=== PATIENT | female | born 1995 | race Caucasian/White ===

== ENCOUNTER 2022-08-27 11:31 | Outpatient (REF) | payer SELFPAY ==
[2022-08-27 11:32] VITALS: BP 111/85; PULSE 86; RESP 16; TEMP 36.2; O2SAT 100; BMI 20.9
--- NOTE | 2022-08-27 11:59 | EX.ED.UPPERE ---
HPI History of Present Illness HPI Narrative: Left index finger needlestick Chief Complaint: Occup Expose Informant: patient Onset/Context/Timing Onset: Today Context: Sudden Onset Timing: Continuous Associated Symptoms Associated Symptoms: Negative for Parasthesia, Weakness or Loss of Funtion Narrative Narrative: 27-year-old female no seen past medical history. Currently on no medications. Works on the labor and delivery floor. Did a blood stick on a and accidentally got stuck in her left index finger with the same dirty needle. Mom reportedly was hepatitis negative of the baby. Patient denies any other complaints. Prior similar symptoms: No Recent Illness/Hospitalization: No PFSH PFSH Medical History no medical history Home Medications NK 06/18/22 [History Last Taken Unknown] Allergy/AdvReac Type Severity Reaction Status Date / Time No Known Allergies Allergy Verified 08/27/22 11:34 Surgical History no surgical history Social History Smoking Status: Never smoker ROS ROS ED ROS Narrative Denies recent illness. Review of Systems ROS Unobtainable: Denies due to encephalopathy Constitutional Constitutional ED: Denies chills or fever(s) Eyes Eyes: Denies blurry vision ENT ENT ED: Denies ear pain Cardiovascular Cardiovascular: Denies chest pain Respiratory/Chest Respiratory/Chest: Denies cough or dyspnea Gastrointestinal Gastrointestinal: Denies abdominal pain Genitourinary Genitourinary ED: Denies dysuria Musculoskeletal Musculoskeletal: Denies back pain Integumentary Denies abscess Neurologic Neurologic: Denies headache(s) Psychiatric Psychiatric: Denies anxiety Endocrine Endocrinology: Denies cold intolerance Hematologic/Lymphatic Hematologic/Lymphatic: Denies easy bleeding Allergic/Immunologic Allergic/Immunologic ED: Denies mouth swelling EXAM Physical Exam Narrative Exam Narrative: 21-year-old female no acute distress. Vital signs stable afebrile. HEENT exam unremarkable. Neck nontender. Lungs clear to auscultation bilaterally. Heart regular rhythm rate about 85 no murmur. Abdomen soft nontender. Moving all 4 extremities. Left index finger palmar aspect mid phalanx there is a needlestick. No signs of infection. Full flexion extension. No significant swelling. No cellulitis. Const Vital Signs: 08/27/22 11:32 Temperature 97.2 F L Temperature Source Temporal Pulse Rate 86 Respiratory Rate 16 Blood Pressure 111/85 H Blood Pressure Mean 93 Pulse Ox 100 Oxygen Delivery Method Room Air Positive well nourished and well developed; Negative for obese, cachectic, contractures or unkempt General Appearance ED: well developed and NAD; Negative for unkempt, cachectic, contractures, cyanotic or diaphoretic Nutritional Appearance: Negative for cachectic or obese HEENT Reports moist mucous membranes normocephalic and atraumatic; Negative for trauma or tenderness Eyes PERRL and EOMs intact bilaterally General Eye ED: Negative for other Neck full ROM and supple General: Negative for tenderness Lymph Lymphatic: Negative for other Chest Wall inspection of chest normal and palpation of chest normal Resp normal respiratory effort and clear to auscultation bilaterally Effort and Inspection: Negative for pain with movement Auscultation: Negative for rales, rhonchi or wheezes Cardio regular rate, regular rhythm, S1 normal heart sound, S2 normal heart sound and no murmurs Rate: Negative for bradycardia or tachycardic GI non-tender and non-distended Inspection: Negative for abdominal distention Palpation: soft Extremity normal to inspection and full ROM Extremity Narrative: PulmNeedlestick left index finger or aspect mid phalanx. No swelling. No signs of infection. Neurovascular intact. Full flexion extension. General Extremety ED: Negative for edema General Extremity: Negative for edema Neuro oriented x3, CN's II-XII intact bilaterally, moves all extremities and no focal motor deficits Sensorium / Orientation: alert, oriented to person, oriented to place and oriented to time; Negative for orientation impaired, lethargic or stuporous Motor Exam: strength 5/5 throughout Psych mental status grossly normal Appearance: Negative for unkempt Attitude: No agitated Mood & Affect: Negative for depressed, anxious or tearful Skin General Skin Exam: Negative for petechiae Lesions: no lesions Rashes: no rashes Trauma: no lacerations or abrasions MDM MDM MDM Narrative Medical decision making narrative: [employer] nurse here works in the hospital. Had a needlestick from a blood draw from a . Left index finger is unremarkable. No signs of infection. She will follow-up with [facility] for needlestick protocol. Discharge Plan Triage Chief Complaint: Occup Expose ED Provider: Power Redmond Dx/Rx/DC Orders Clinical Impression: Needlestick injury of finger Instructions: ED NEEDLE STICK Health Care Worker Prescriptions: No Action NK Activity Restrictions/Additional Instructions: Follow-up with employee health for needlestick protocol. Watch you do not develop any signs of infection to your finger. Keep the wound clean. Watch for redness, swelling, streaks or fever. If develop needs to be evaluated. Disposition Disposition: Home, Self Care
== END 2022-08-27 12:09 | disposition home or self-care (01) ==
LOC: ED 11:31
PROVIDERS: Visit Provider Emergency Medicine
DX: L76.12 Accidental puncture and laceration of skin and subcutaneous tissue during other procedure (principal); Y92.230 Patient room in hospital as the place of occurrence of the external cause

== ENCOUNTER → 2022-09-11 | Outpatient (CLI) | payer OTHER, SELFPAY ==
[2022-09-21 17:51] LABS: HPV Reflexed? NOT INDICATED
== END | disposition home or self-care (01) ==
LOC: LABSPEC 16:11
PROVIDERS: Visit Provider Registered Nurse
DX: Z12.4 Encounter for screening for malignant neoplasm of cervix (principal)
CPT/HCPCS: 88175; G0145

== ENCOUNTER → 2023-07-14 | Outpatient (CLI) | payer OTHER, SELFPAY ==
[2023-07-14 10:52] LABS: Absolute Lymphocyte Count 1.56 X10^3/uL (0.83-4.51); Absolute Neutrophil Count 6.2 X10^3/uL (2.0-7.7); Basophil# 0.03 X10^3/uL; Basophil% 0.4 % (0-1); Eosinophil# 0.09 X10^3/uL; Eosinophils% 1.1 % (0-5); Hematocrit 36.9 % (37-47); Lymphocyte # 1.56 X10^3/ul (0.83-4.51); Lymphocyte % 18.3 % (19-41); Mean Corp Hgb Conc 35.2 g/dL (32-36); Mean Corpuscular Hgb 30.8 pg (27.0-32.0); Mean Corpuscular Volume 87.4 fL (81-99); Mean Platelet Vol. 10.1 fl (6.2-12.0); Monocyte# 0.57 X10^3/uL; Monocyte% 6.7 % (0-10); NRBC Flagged by Analyzer 0 % (0-5); Neutrophil # 6.24 X10^3/uL (2.7-7.7); Neutrophil % 73.1 % (47-70); Platelet Count 202 K/mm3 (150-450); RBC Distribution Width CV 12.5 % (11.6-14.6); RBC Distribution Width SD 39.9 fl (35.1-43.9); Red Blood Count 4.22 M/mm3 (4.2-5.4); White Blood Count 8.5 K/mm3 (4.4-11.0)
[2023-07-14 11:49] LABS: NATERA MAILED SPECIMEN
[2023-07-14 13:23] LABS: HIV - WCH Non-Reactive (Nonreactive); Hepatitis B Surface Antigen Non-Reactive (Nonreactive); Hepatitis C Antibody Non-Reactive (Nonreactive); Rubella IgG Reactive (Nonreactive); Syphilis Antibodies Non-reactive
[2023-07-16 12:09] LABS: Chlamydia By Nucleic Acid AMP Negative (Negative); Gonococcus By Nucleic Acid AMP Negative (Negative)
[2023-07-20 15:23] LABS: HPV Reflexed? NOT INDICATED
== END | disposition home or self-care (01) ==
PROVIDERS: Referring Provider Obstetrics & Gynecology; Visit Provider Obstetrics & Gynecology
DX: Z34.90 Encounter for supervision of normal pregnancy, unspecified, unspecified trimester (principal); Z31.430 Encounter of female for testing for genetic disease carrier status for procreative management
CPT/HCPCS: 36415; 85025; 86703; 86762; 86780; 86803; 86850; 86900; 86901; 87086; 87088; 87340; 87491; 87591; 88175; G0145

== ENCOUNTER → 2023-10-04 | Outpatient (CLI) | payer OTHER, SELFPAY ==
--- NOTE | 2023-10-04 08:05 | US_ITS ---
STUDY: SECOND AND THIRD TRIMESTER OBSTETRICAL ULTRASOUND REASON FOR EXAM: Female, 28 years old anatomy scan LMP: May 15, 2023. TECHNIQUE: Transabdominal and Transvaginal TECHNICAL QUALITY: Adequate. PRIOR ULTRASOUND: None. FINDINGS: There is a single intrauterine fetus. The fetus is in a cephalic presentation. There is demonstrated cardiac activity with a heart rate of 141 bpm. There is a normal amniotic fluid volume. The largest amniotic fluid pocket measures 4.4 cm. The amniotic fluid index (REMI) is within normal limits. The placenta is posterior in location and is not low lying. There are Grade 0 placental changes. The cervix measures 4.1 cm in length. The adnexal regions are not visualized. BIOMETRY: BPD: 8.63 cm: 20 weeks, 0 days HC: 17.18 cm: 19 weeks, 5 days AC: 15.01 cm: 20 weeks, 2 days FL: 3.08 cm: weeks, 4 days CI: 76.5% FL/BPD: 66.5% FL/HC: FL/AC: 20.5% HC/AC: 1.14 age by current US: 19 weeks, 5 days. MELISSA by current US: February 23, 2024. Estimated weight: 324 grams, +/- 49 grams, 28 %. Age by LMP: 20 weeks, 2 days. MELISSA by LMP: February 19, 2024. ANATOMY: Cranium: Normal lateral ventricles. Small bilateral choroid plexus cysts Normal cerebellum. Normal cisterna magna. Normal face, nose and lips. Chest: Normal 4-chamber heart. Abdomen/Pelvis: Normal diaphragm. Normal stomach. Normal abdominal wall. Normal cord insertion. Normal 3 vessel cord. Normal kidneys. Normal bladder. Spine: Normal cervical spine. Normal thoracic spine. Normal lumbar spine. Normal sacrum. Extremities: Normal bilateral upper extremities. Normal bilateral lower extremities. IMPRESSION: Live intrauterine gestation with a mean gestational age of 19 weeks and 5 days. Small bilateral choroid plexus cysts. Electronically Signed: Ty Mccormick MD at 9:07 EST , STUDY: FIRST TRIMESTER OBSTETRICAL ULTRASOUND REASON FOR EXAM: Female, 28 years old anatomy scan LMP: May 15, 2023 TECHNIQUE: Transvaginal TECHNICAL QUALITY: Adequate. PRIOR ULTRASOUND: None. FINDINGS: Cervical length measures 4.1 cm. US/OB Anatomy w/ Transvaginal IMPRESSION: Cervical length measures 4.1 cm. Electronically Signed: Ty Mccormick MD at 9:07 EST ,
== END | disposition home or self-care (01) ==
LOC: OPUS 08:04
PROVIDERS: Referring Provider Registered Nurse; Visit Provider Registered Nurse
DX: O09.90 Supervision of high risk pregnancy, unspecified, unspecified trimester (principal); Z3A.00 Weeks of gestation of pregnancy not specified
CPT/HCPCS: 76805; 76817

== ENCOUNTER → 2023-10-05 | Outpatient (CLI) | payer OTHER, SELFPAY ==
[2023-10-05 11:20] LABS: NATERA MAILED SPECIMEN
== END | disposition home or self-care (01) ==
PROVIDERS: Referring Provider Advanced Practice Midwife; Visit Provider Advanced Practice Midwife
DX: Z34.02 Encounter for supervision of normal first pregnancy, second trimester (principal)

== ENCOUNTER → 2023-11-29 | Outpatient (CLI) | payer OTHER, SELFPAY ==
[2023-11-29 11:05] LABS: Absolute Lymphocyte Count 1.34 X10^3/uL (0.83-4.51); Absolute Neutrophil Count 6.1 X10^3/uL (2.0-7.7); Basophil# 0.03 X10^3/uL; Basophil% 0.4 % (0-1); Eosinophil# 0.26 X10^3/uL; Eosinophils% 3.2 % (0-5); Hematocrit 32.7 % (37-47); Hemoglobin 10.9 g/dL (12.0-15.0); Lymphocyte # 1.34 X10^3/ul (0.83-4.51); Lymphocyte % 16.4 % (19-41); Mean Corp Hgb Conc 33.3 g/dL (32-36); Mean Corpuscular Hgb 29.9 pg (27.0-32.0); Mean Corpuscular Volume 89.6 fL (81-99); Monocyte# 0.41 X10^3/uL; NRBC Flagged by Analyzer 0 % (0-5); Neutrophil # 6.13 X10^3/uL (2.7-7.7); Neutrophil % 74.8 % (47-70); Platelet Count 199 K/mm3 (150-450); RBC Distribution Width CV 12.1 % (11.6-14.6); RBC Distribution Width SD 39.2 fl (35.1-43.9); Red Blood Count 3.65 M/mm3 (4.2-5.4); White Blood Count 8.2 K/mm3 (4.4-11.0)
[2023-11-29 11:17] LABS: Glucose Challenge Gest 1H 50g 176 mg/dL (70-140)
[2023-11-29 11:48] LABS: HIV - WCH Non-Reactive (Nonreactive); Syphilis Antibodies Non-reactive
--- OUTSIDE RECORDS SUMMARY | 2023-11-29 12:19 | XMS RPT_ITS | CCD ---
Author Name Unknown Address [address] [place] [address] Organization [facility] Results Test Name Value Interpretation Reference Range Facil ity Summary Purpose Family History No Family History Records Found Advance Directives No Advanced Directives Records Found Additional Source Comments INFORMATION SOURCE (unrecogn ized section and content) FOR RECORDS PERTAINING TO PATIENTS WHO ARE OR HAVE BEEN ENROLLED IN A CHEMICAL DEPENDENCY/SUBSTANCEABUSE PROGRAM, SOME INFORMATION MAY BE OMITTED. This clinical summary was aggregated from multiple sources. Caution should be exercised in using it in the provision of clinical care. This summary normalizes information from multiple sources, and as a consequence, information in this document may materially change the coding, format and clinical context of patient data. In addition, data may be omitted in some cases. CLINICAL DECISIONS SHOULD BE BASED ON THE PRIMARY CLINICAL RECORDS. [employer] [facility]. provides no warranty or guarantee of the accuracy or completeness of information in this document.
== END | disposition home or self-care (01) ==
LOC: PAVLAB 10:41
PROVIDERS: Registered Nurse; Visit Provider Obstetrics & Gynecology
DX: O09.92 Supervision of high risk pregnancy, unspecified, second trimester (principal); Z3A.24 24 weeks gestation of pregnancy; Z13.1 Encounter for screening for diabetes mellitus
CPT/HCPCS: 36415; 82950; 85025; 86703; 86780

== ENCOUNTER → 2023-12-07 | Outpatient (CLI) | payer OTHER, SELFPAY ==
[2023-12-07 11:20] LABS: Glucose GTT-Gestation. Fasting 74 mg/dL (<105)
[2023-12-07 12:56] LABS: Glucose GTT-Gestational 1 Hr 199 mg/dL (<190)
[2023-12-07 13:00] LABS: Glucose GTT-Gestational 2 Hr 182 mg/dL (<165)
[2023-12-07 13:46] LABS: Glucose GTT-Gestational 3 Hr 122 L (<145)
== END | disposition home or self-care (01) ==
LOC: LAB 09:54
PROVIDERS: Registered Nurse; Referring Provider Obstetrics & Gynecology; Visit Provider Obstetrics & Gynecology
DX: O99.810 Abnormal glucose complicating pregnancy (principal); Z3A.00 Weeks of gestation of pregnancy not specified
CPT/HCPCS: 82951; 82952

== ENCOUNTER 2023-12-28 09:00 | Outpatient (RCR) | payer OTHER, SELFPAY | END 2024-01-06 23:59 | LOC: DC 09:00 | PROVIDERS: Referring Provider Registered Nurse; Visit Provider Registered Nurse | DX: O24.419 Gestational diabetes mellitus in pregnancy, unspecified control (principal) | CPT/HCPCS: 97802; 97803 ==

== ENCOUNTER → 2024-01-03 | Outpatient (CLI) | payer OTHER, SELFPAY ==
[2024-01-03 10:45] LABS: Absolute Lymphocyte Count 1.45 X10^3/uL (0.83-4.51); Absolute Neutrophil Count 4.2 X10^3/uL (2.0-7.7); Basophil# 0.02 X10^3/uL; Basophil% 0.3 % (0-1); Eosinophil# 0.12 X10^3/uL; Eosinophils% 1.9 % (0-5); Hematocrit 35.5 % (37-47); Hemoglobin 11.8 g/dL (12.0-15.0); Lymphocyte # 1.45 X10^3/ul (0.83-4.51); Lymphocyte % 23.5 % (19-41); Mean Corp Hgb Conc 33.2 g/dL (32-36); Mean Corpuscular Hgb 29.8 pg (27.0-32.0); Mean Corpuscular Volume 89.6 fL (81-99); Monocyte# 0.33 X10^3/uL; Monocyte% 5.3 % (0-10); NRBC Flagged by Analyzer 0 % (0-5); Neutrophil # 4.22 X10^3/uL (2.7-7.7); Neutrophil % 68.4 % (47-70); Platelet Count 165 K/mm3 (150-450); RBC Distribution Width CV 13.6 % (11.6-14.6); RBC Distribution Width SD 44.5 fl (35.1-43.9); Red Blood Count 3.96 M/mm3 (4.2-5.4); White Blood Count 6.2 K/mm3 (4.4-11.0)
--- OUTSIDE RECORDS SUMMARY | 2024-01-03 11:54 | XMS RPT_ITS | CCD ---
Author Name Unknown Address [address] [place] [address] Organization [facility] Results Test Name Value Interpretation [...] BE BASED ON THE PRIMARY CLINICAL RECORDS. [employer] [facility]. provides no warranty or guarantee of the accuracy or completeness of information in this document.
== END | disposition home or self-care (01) ==
LOC: PAVLAB 10:34
PROVIDERS: Referring Provider Nurse Practitioner Women's Health; Visit Provider Nurse Practitioner Women's Health
DX: O99.013 Anemia complicating pregnancy, third trimester (principal); Z3A.00 Weeks of gestation of pregnancy not specified
CPT/HCPCS: 36415; 85025

== ENCOUNTER → 2024-01-27 | Outpatient (CLI) | payer OTHER, SELFPAY ==
--- NOTE | 2024-01-27 16:48 | US_ITS ---
STUDY: SECOND AND THIRD TRIMESTER OBSTETRICAL ULTRASOUND - LIMITED REASON FOR EXAM: Female, 28 years old well being -- 36 weeks LMP: 05/15/2023 PRIOR ULTRASOUND: No relevant prior comparison study available TECHNIQUE: Transabdominal TECHNICAL QUALITY: Adequate. FINDINGS: There is a single intrauterine fetus. The fetus is in a cephalic presentation. There is demonstrated cardiac activity with a heart rate of 135 bpm. There is a normal amniotic fluid volume. The largest amniotic fluid pocket measures 6.2 cm. The amniotic fluid index (REMI) is 18.2 cm. The placenta is posterior in location and is not low lying. There are Grade 1 placental changes. The cervix is not visualized. BIOMETRY: BPD: 8.8 cm: 35 weeks, 5 days HC: 31.9 cm: 35 weeks, 6 days AC: 31.2 cm: 35 weeks, 1 days FL: 6.7 cm: 34 weeks, 3 days Age by LMP: 36 weeks, 5 days. MELISSA by LMP: 02/19/2024. age by current US: 35 weeks, 2 days. MELISSA by current US: 02/29/2024. Estimated weight: 2610 grams, +/- 391 grams, 18.2 percentile. US/OB Limited With Biometrics IMPRESSION: Single live intrauterine fetus in cephalic presentation with an estimated gestational age of 32 weeks and 2 days. The MELISSA is 02/29/2024. Electronically Signed: Mario Cui MD at 11:00 EDT ,
== END | disposition home or self-care (01) ==
PROVIDERS: Referring Provider Nurse Practitioner Women's Health; Visit Provider Nurse Practitioner Women's Health
DX: Z34.90 Encounter for supervision of normal pregnancy, unspecified, unspecified trimester (principal)
CPT/HCPCS: 76816; 87081

== ENCOUNTER 2024-02-02 09:13 | Outpatient (CLI) | payer OTHER, SELFPAY ==
[2024-02-02 09:30] VITALS: BP 123/83; PULSE 97; RESP 16; TEMP 36.3; O2SAT 97
--- NOTE | 2024-02-02 09:35 | US_ITS ---
STUDY: SECOND AND THIRD TRIMESTER OBSTETRICAL ULTRASOUND - LIMITED REASON FOR EXAM: Female, 28 years old Fluid levels -- REMI only LMP: May 15, 2023. PRIOR ULTRASOUND: Comparison is made with prior study dated January 27, 2024. TECHNIQUE: Transabdominal TECHNICAL QUALITY: Adequate. FINDINGS: There is a single intrauterine fetus. The fetus is in a breech presentation. There is demonstrated cardiac activity with a heart rate of 144 bpm. There is a normal amniotic fluid volume. The largest amniotic fluid pocket measures 6.1 cm. The amniotic fluid index (REMI) is 19.7 cm. The placenta is posterior in location and is not low lying. There are Grade 1 placental changes. The cervix measures 3.5 cm in length. BIOMETRY: Age by LMP: 37 weeks, 4 days. MELISSA by LMP: February 19, 2024. US/OB Limited (No Biometrics) IMPRESSION: Normal amniotic fluid index. Electronically Signed: Ty Mccormick MD at 12:34 EDT ,
[2024-02-02 09:42] VITALS: BMI 26.0
--- NOTE | 2024-02-02 11:53 | OB.TRI.PN ---
Progress Notes Date of Service: 02/02/24 Progress Note: Patient presents for triage evaluation secondary to decreased fundal height in office FHT: 130 Moderate variability reactive no decelerations category I tracing [place]: none Contractions Assessment and plan: US shows breech presentation. REMI 19, Reactive NST, reassuring maternal and status patient discharged to home to follow-up tomorrow for Version with SM. See problem list details for additional plan information. Charges/Coding Multi Select Codes Urinary/Genital Urinary/Genital CPT Codes: 94983-21 non-stress test Interp Assessment & Plan (1) Breech position of fetus: COMMENT: on US at 37.4 weeks version 02/03/24 with SM. REMI 19 on 02/01 (2) Uterine size date discrepancy : COMMENT: S<D (3) Gestational diabetes mellitus (GDM) affecting , antepartum: COMMENT: Diet controlled-36 week growth US 18% (4) Anemia affecting in third trimester: COMMENT: iron recommended repeat cbc in 4 weeks. 01/03:resolved (5) Supervision of high-risk : QUALIFIERS: Trimester: second trimester Qualified Code(s): O09.92 - Supervision of high risk , unspecified, second trimester COMMENT: PRR , MELISSA 02/25/24 surprise Siva (6) : QUALIFIERS: Weeks of gestation: 37 weeks Qualified Code(s): Z3A.37 - 37 weeks gestation of COMMENT: GBS neg, NIPT low risk, carrier testing neg. . afp declined. normal anatomy
== END 2024-02-02 11:50 | disposition home or self-care (01) ==
LOC: WPOUT 09:17 → WP 09:17
PROVIDERS: Referring Provider Advanced Practice Midwife; Visit Provider Advanced Practice Midwife
DX: O32.1XX0 Maternal care for breech presentation, not applicable or unspecified (principal); Z3A.37 37 weeks gestation of pregnancy; O26.843 Uterine size-date discrepancy, third trimester; O24.419 Gestational diabetes mellitus in pregnancy, unspecified control; O99.013 Anemia complicating pregnancy, third trimester
CPT/HCPCS: 59025; 59050; 76815; 99221; G0378

== ENCOUNTER 2024-02-03 06:30 | Outpatient (CLI) | payer OTHER, SELFPAY ==
[2024-02-03 06:37] VITALS: BMI 25.6
[2024-02-03 06:46] VITALS: BP 119/77; PULSE 86; RESP 16; TEMP 36.7; O2SAT 100
[2024-02-03] MEDS: Lactated Ringers 1,000 ML 125 ML IV (07:00)
--- NOTE | 2024-02-03 07:21 | HP.PCM.OB_ITS ---
HPI - General HPI Narrative JANET FLORES, is a 28 F who presents with breech presentation for external cephalic version. she had an ultrasound done that showed non cephalic presentation, she was counseled regarding options, and requested to proceed with ECV. Maternal Data Information MELISSA Calculator Estimated Delivery Date Method Current WG Current Estimate 02/19/24 Ultrasound #1 37w 5d Other Estimates 02/25/24 LMP (Certain) 36w 6d [facility] Medical History Asthma Home Medications multivitamin no.47-iron fum 27 mg-folate no.1 1 mg-dha 300 mg capsule (PNV-DHA) cap PO 07/06/23 [History Last Taken Unknown] omega 1-zot-pqf-fish oil 60 mg-90 mg-500 mg capsule (Fish Oil) 1 cap PO DAILY 07/06/23 [History Last Taken Unknown] ondansetron 4 mg disintegrating tablet 4 mg PO Q6H PRN nausea and vomiting #30 tabs 07/14/23 [Rx Last Taken Unknown] promethazine 25 mg tablet 25 mg PO ONCE #30 tabs 09/10/23 [Rx Last Taken Unknown] blood sugar diagnostic (Blood Glucose Test strips) #120 ea 12/09/23 [Rx Last Taken Unknown] blood-glucose meter #1 ea 12/09/23 [Rx Last Taken Unknown] lancets #200 ea 12/09/23 [Rx Last Taken Unknown] aspirin 81 mg tablet,delayed release 81 mg PO DAILY 01/12/24 [History Last Taken Unknown] Allergy/AdvReac Type Severity Reaction Status Date / Time No Known Allergies Allergy Verified 02/02/24 09:37 Family History Grandmother Cancer Breast cancer Rectal cancer, Onset Age: 79 maternal Breast cancer Grandfather Cancer, Onset Age: 50 Maternal- testicular Uncle Cancer, Onset Age: 16 Brain- Maternal Social History adopted: No household members: spouse current occupational status: employed current occupation: RN- [employer] pets and animals: Yes pets and animals: dog(s) history of recent travel: Yes ([place]) out of state: Yes out of country: No sexually active: Yes Smoking Status: Never smoker alcohol intake: current alcohol intake frequency: holidays/special occasions only details: NOT WHILE substance use type: does not use diet: lactose free well-balanced diet: daily or most days caffeine: No eating out: 4 or more times/week during the past year weight has: increased > 10 lbs what type of physical activity do you participate in: none miguel/mu-ism: Mandaeism seatbelt use: always do you feel safe at home: Yes additional social history: - Siva History 1 Elective abortions Hx Para 0 Spontaneous abortions Hx # Term Pregnancies Ectopic pregnancies Hx # Pregnancies Multiple births # of living children Visit Details Expected Delivery Route/Plan Labor Preferences- CB/BF classes: scheduled labor support person: Siva labor intervention preferences: [] pain management options preferred: epidural cut cord/dad catch: yes : yes PP control planned: discussed discussed possible routes of delivery and associated risks: [] special requests: [] Plans Covid status: [] Flu vaccine: DONE Tdap vaccine: DONE Rhogam: NA LARC form signed: yes Problem list reviewed and updated with the most current plan of care details and appropriate orders placed. Relevant counseling for the gestational age provided. Continue routine care and follow up unless otherwise noted in visit notes/problem list details OB Flowsheet Initial Weight: 145 lb Date -?-?-?-?-?-?--?-?-?-?-?-?- EGA Weight BP Urine Prot -?-?-?-?-?-?-?-?-?-?-?-?- Glucose FHR FuHt Pres Dilation -?-?-?-?-?-?-?-?-?-?-?-?- Effaced St Visit Note 07/14/23 -?-?-?-?-?-?-?-?-?-?-?-?- 8w 4d 145 lb 4 oz (+4 oz) 116/72 -?-?-?-?-?-?-?-?-?-?-?-?- 165 -?-?-?-?-?-?-?-?-?-?-?-?- JV- CRL off by o usha 5 days. New melissa given. rivka sent to pharmacy. declines NIPT and desires carrier screen. 08/11/23 -?-?-?-?-?-?-?-?-?-?-?-?- 12w 4d 142 lb (-3 lb) 106/69 -?-?-?-?-?-?-?-?-?-?-?-?- 157 -?--?-?-?-?-?-?-?-?-?-?-?- LC- no vb/crampi ng. [facility] anatomy ordered. LC- no vb/cramping. [facility] marvin amy ordered. declines afp . 09/06/23 -?-?-?-?-?-?-?-?-?-?-?-?- 16w 2d 145 lb (+0 oz) 112/74 Negative -?-?-?-?-?-?-?-?-?-?-?-?- Negative 147 -?-?-?-?-?-?-?-?-?-?-?-?- MH-No VB. Nausea improving. Denies concerns 10/05/23 -?-?-?-?-?-?-?-?-?-?-?-?- 20w 3d 146 lb (+16 oz) 111/76 -?-?-?-?-?-?-?-?-?-?-?-?- 140 20 -?-?-?-?-?-?-?-?-?-?-?-?- kw- no vb/crampi ng. noticing fm. on asa 81mg for covid during . NIPT today for possible choroid plexus cysts found on US. Report not read yet but US tech indicated measurements were taken when pt asked. pt reassured and discussed in depth. 11/05/23 -?-?-?-?-?-?-?-?-?-?-?-?- 24w 6d 153 lb 8 oz (+8 lb 8 oz) 121/80 Negative -?-?-?-?-?-?-?-?-?-?-?-?- Negative 143 24 -?-?-?-?-?-?-?-?-?-?-?-?- LC- no vb/ctc/lo f. good fm. 28 week labs ordered. desires to do pelvic floor pt prior to delivery for preparation 11/29/23 -?-?-?-?-?-?-?-?-?-?-?-?- 28w 2d 157 lb (+12 lb) 117/78 -?-?-?-?-?-?-?-?-?-?-?-?- 140 29 -?-?-?-?-?-?-?-?-?-?-?-?- SM- no vb lof go od fm no regular ctx SM- no vb lof good fm no reg ular ctx DISCUSSED 1 hr results 12/16/23 -?-?-?-?-?-?-?-?-?-?-?-?- 30w 5d 158 lb 6 oz (+13 lb 6 oz) 120/80 Negative -?-?-?-?-?-?-?-?-?-?-?-?- Negative 140 29 -?-?-?-?-?--?-?-?-?-?-?-?- KW- no vb/lof/ct x. good fm. Discussed 3 hour results. Blood sugars under parameters. doing well. will plan 36 week US. 01/03/24 -?-?-?-?-?-?-?-?-?-?-?-?- 33w 2d 155 lb 6 oz (+10 lb 6 oz) 108/68 Negative -?-?-?-?-?-?-?-?-?-?-?-?- Negative 143 32 -?-?-?-?-?-?-?-?-?-?-?-?- MH-NO VB, LOF. G ood FM. Glucose readings WNL. Had GI flu last week, reassured concerning weight loss 01/12/24 -?-?-?-?-?-?-?-?-?-?-?-?- 34w 4d 156 lb 4 oz (+11 lb 4 oz) 110/70 Trace -?-?-?-?-?-?-?-?-?-?-?-?- Negative 145 32 -?-?-?-?-?-?-?-?-?-?-?-?- JV- no lof, vagi nal bleeding, or dec fm. plan growth scan in 2 weeks. JV- no lof, vaginal bleeding , or dec fm. plan growth scan in 2 weeks. all glucose levels are normal. 01/27/24 -?-?-?-?-?-?-?-?-?-?-?-?- 36w 5d 163 lb 4 oz (+18 lb 4 oz) 124/75 Negative -?-?-?-?-?-?-?-?-?-?-?-?- Negative 135 37 Cephalic -?-?-?-?-?-?-?-?-?-?-?-?- KW- no vb/lof/ct x. good fm. no VE today. GBS today. 02/02/24 -?-?-?-?-?-?-?-?-?-?-?-?- 37w 4d 163 lb 8 oz (+18 lb 8 oz) 110/72 Negative -?-?-?-?-?-?-?-?-?-?-?--?- Negative 145 33 Cephalic 1 -?-?-?-?-?-?-?-?-?-?-?-?- 50 -3 KW- no vb/ lof/reg ctx. good fm. GBS neg. Growth US ordered for S<D NST FHR Rate Baby A Baseline: 130 Variability:: Moderate Accelerations:: 15 x 15 Decelerations:: None NST Reactive:: Yes FHR Category:: Category I Uterine Activity:: irregular ROS Constitutional Constitutional: Reports systems reviewed and no addt'l complaints, except as documented Eyes Eyes: Denies change in vision ENT HEENT: Reports systems reviewed and no addt'l complaints, except as documented; Denies headache(s) Cardiovascular Cardiovascular: Reports systems reviewed and no addt'l complaints, except as documented; Denies chest pain or dyspnea Respiratory/Chest Respiratory/Chest: Reports systems reviewed and no addt'l complaints, except as documented Gastrointestinal Gastrointestinal: Reports systems reviewed and no addt'l complaints, except as documented; Denies abdominal pain Genitourinary Genitourinary: Reports systems reviewed and no addt'l complaints, except as documented, contractions Details: present (irregular) and movement Details: present; Denies dysuria or genital lesions Musculoskeletal Musculoskeletal: Reports systems reviewed and no addt'l complaints, except as documented Neurologic Neurologic: Reports systems reviewed and no addt'l complaints, except as documented Endocrine Endocrinology: Reports systems reviewed and no addt'l complaints, except as documented Vital Signs Vital Signs Vital Signs: 02/03/24 06:46 02/03/24 06:46 02/03/24 06:46 Temperature Temperature Source Temporal Pulse Rate 86 Respiratory Rate Blood Pressure 119/77 BP Systolic 119 BP Diastolic 77 Pulse Ox 02/03/24 06:46 02/03/24 06:46 02/03/24 06:46 Temperature 98.0 F Temperature Source Pulse Rate Respiratory Rate 16 Blood Pressure BP Systolic BP Diastolic Pulse Ox 100 Weight Weight: 161 lb 6 oz Body Mass Index (BMI) 25.6 Physical Exam Const alert, oriented x3, no apparent distress and healthy appearing HEENT normocephalic and moist oral mucous membranes Head and Scalp: atraumatic Neck full ROM, no lymphadenopathy, supple and thyroid normal General: trachea midline Lymph Lymphatic: no lymphadenopathy noted Chest inspection of chest normal Resp normal respiratory effort Cardio regular rate GI normal to inspection, nondistended, normoactive bowel sounds, soft to palpation and non-tender Inspection: gravid external exam normal Manual OB Exam: estimated gestational size appropriate, presentation cephalic, dilated, effaced and station Extremity normal to inspection General Extremity: Negative for edema Skin no rashes or lesions noted Neuro no focal motor deficits and deep tendon reflexes 2+ bilaterally Motor Exam: strength 5/5 throughout and clonus absent Psych mental status grossly normal Labs Labs Labs: Blood Type A POSITIVE Antibody Screen NEGATIVE Hct 35.5 % (37-47) L Hgb 11.8 g/dL (12.0-15.0) L Obstetrics Ultrasound Syphilis Total Ab Non-reactive Rubella IgG Antibody Reactive (Nonreactive) Hep Bs Antigen Non-Reactive (Nonreactive) Hepatitis C Antibody Non-Reactive (Nonreactive) Chlamydia DNA (DORIS) Negative (Negative) N.gonorrhoeae DNA (DORIS) Negative (Negative) HIV 1&2 Antibody Non-Reactive (Nonreactive) Glucose 1 Hr 50 gm 176 mg/dL (70-140) H Gest Glucose Tolerance MG/DL Assessment & Plan (1) Breech position of fetus: COMMENT: on US at 37.4 weeks version 02/03/24 with SM. REMI 19 on 02/01 (2) Uterine size date discrepancy : COMMENT: S<D (3) Gestational diabetes mellitus (GDM) affecting , antepartum: COMMENT: Diet controlled-36 week growth US 18% (4) Anemia affecting in third trimester: COMMENT: iron recommended repeat cbc in 4 weeks. 01/03:resolved (5) Supervision of high-risk : QUALIFIERS: Trimester: second trimester Qualified Code(s): O09.92 - Supervision of high risk , unspecified, second trimester COMMENT: PRR , MELISSA 02/25/24 surprise Siva (6) : QUALIFIERS: Weeks of gestation: 37 weeks Qualified Code(s): Z3A.37 - 37 weeks gestation of COMMENT: GBS neg, NIPT low risk, carrier testing neg. . afp declined. normal anatomy PLAN: Plan counseled regarding options, proceed with ECV.
[2024-02-03 07:37] VITALS: BP 102/56; PULSE 88
[2024-02-03 07:48] VITALS: PULSE 105; RESP 16; TEMP 36.9; O2SAT 98
[2024-02-03 07:53] VITALS: PULSE 87; O2SAT 98
[2024-02-03 07:58] VITALS: PULSE 91; O2SAT 98
[2024-02-03 09:01] VITALS: BP 96/54; PULSE 80
--- NOTE | 2024-02-03 13:10 | PCM.OP.BLANK ---
Operative Report Preprocedure diagnosis: Breech presentation Post procedure diagnosis: Vertex presentation Procedure: External cephalic version Surgeon: Lori Yu EBL: None Complications: None Anesthesia: None Special medications: none Seizure details: The fetus was found to be in breech presentation informed by ultrasound. Patient had an IV in place, normal amniotic fluid, no contraindications to a vaginal delivery, and reactive nonstress test prior to the procedure. Patient was placed in the dorsal supine position. Ultrasound gel was applied to the patient's abdomen and using constant upward pressure to elevate the buttocks out of the pelvic inlet constant pressure was applied to the buttocks and to the area behind the back of the neck and head to encourage a forward roll of the fetus. Constant pressure was applied and slowly the infant was converted to a vertex presentation. Bedside ultrasound was used to confirm vertex presentation and reassuring heart rate. Patient was replaced on the NST and monitored to assure reassuring status. No complications. Procedures Urinary/Genital [id number]: [id number] ECV
== END 2024-02-03 09:20 | disposition home or self-care (01) ==
LOC: WPOUT 06:33 → WP 06:34
PROVIDERS: Referring Provider Obstetrics & Gynecology; Visit Provider Obstetrics & Gynecology
DX: O32.1XX0 Maternal care for breech presentation, not applicable or unspecified (principal); Z3A.37 37 weeks gestation of pregnancy; O26.843 Uterine size-date discrepancy, third trimester; O24.419 Gestational diabetes mellitus in pregnancy, unspecified control; O99.013 Anemia complicating pregnancy, third trimester
CPT/HCPCS: 96360; 96361; 59025; 59050; 99221; J7120; G0378

== ENCOUNTER 2024-02-17 16:50 | Inpatient (IN) | payer OTHER, SELFPAY ==
[2024-02-17] VITALS (9 sets, daily range): BP systolic 118–132; BP diastolic 72–89; PULSE 67–96; RESP 16; TEMP 36.7; O2SAT 95–98; BMI 26.0
--- NOTE | 2024-02-17 17:49 | HP.PCM.OB_ITS ---
HPI - General General Date of Admission: 02/17/24 HPI Narrative JANET FLORES, is a 28 F who presents for IOL secondary to polyhydramnios and diabetes. her blood sugars have been well controlled. Maternal Data Information MELISSA Calculator Estimated Delivery Date Method Current WG Current Estimate 02/19/24 Ultrasound #1 39w 5d Other Estimates 02/25/24 LMP (Certain) 38w 6d PFSH [facility] Medical History (Updated 02/17/24 @ 18:[address] Lori Yu MD) Anemia affecting Asthma Gestational diabetes Polyhydramnios Successful external cephalic version Home Medications multivitamin no.47-iron fum 27 mg-folate no.1 1 mg-dha 300 mg capsule (PNV-DHA) cap PO 07/06/23 [History Last Taken Unknown] omega 7-nul-ttu-fish oil 60 mg-90 mg-500 mg capsule (Fish Oil) 1 cap PO DAILY 07/06/23 [History Last Taken Unknown] ondansetron 4 mg disintegrating tablet 4 mg PO Q6H PRN nausea and vomiting #30 tabs 07/14/23 [Rx Last Taken Unknown] promethazine 25 mg tablet 25 mg PO ONCE #30 tabs 09/10/23 [Rx Last Taken Unknown] blood sugar diagnostic (Blood Glucose Test strips) #120 ea 12/09/23 [Rx Last Taken Unknown] blood-glucose meter #1 ea 12/09/23 [Rx Last Taken Unknown] lancets #200 ea 12/09/23 [Rx Last Taken Unknown] aspirin 81 mg tablet,delayed release 81 mg PO DAILY 01/12/24 [History Last Taken Unknown] Allergy/AdvReac Type Severity Reaction Status Date / Time No Known Allergies Allergy Verified 02/17/24 15:59 Family History Grandmother Cancer Breast cancer Rectal cancer, Onset Age: 79 maternal Breast cancer Grandfather Cancer, Onset Age: 50 Maternal- testicular Uncle Cancer, Onset Age: 16 Brain- Maternal Social History adopted: No household members: spouse current occupational status: employed current occupation: RN- [employer] pets and animals: Yes pets and animals: dog(s) history of recent travel: Yes ([place], [facility]) out of state: Yes out of country: No sexually active: Yes Smoking Status: Never smoker alcohol intake: current alcohol intake frequency: holidays/special occasions only details: NOT WHILE substance use type: does not use diet: lactose free well-balanced diet: daily or most days caffeine: No eating out: 4 or more times/week during the past year weight has: increased > 10 lbs what type of physical activity do you participate in: none miguel/sabianist: Episcopal seatbelt use: always do you feel safe at home: Yes additional social history: - Siva History 1 Elective abortions Hx Para 0 Spontaneous abortions Hx # Term Pregnancies Ectopic pregnancies Hx # Pregnancies Multiple births # of living children Visit Details Expected Delivery Route/Plan Labor Preferences- CB/BF classes: scheduled labor support person: Siva labor intervention preferences: [] pain management options preferred: epidural cut cord/dad catch: yes : yes PP control planned: discussed discussed possible routes of delivery and associated risks: [] special requests: [] Plans Covid status: [] Flu vaccine: DONE Tdap vaccine: DONE Rhogam: NA LARC form signed: yes Problem list reviewed and updated with the most current plan of care details and appropriate orders placed. Relevant counseling for the gestational age provided. Continue routine care and follow up unless otherwise noted in visit notes/problem list details OB Flowsheet Initial Weight: 145 lb Date -?-?-?-?-?-?-?-?-?-?-?-?- EGA Weight BP Urine Prot -?-?-?-?-?-?-?-?-?-?-?-?- Glucose FHR FuHt Pres Dilation -?-?-?-?-?-?-?-?-?-?-?-?- Effaced St Visit Note 07/14/23 -?-?-?-?-?-?-?-?-?-?-?--?- 8w 4d 145 lb 4 oz (+4 oz) 116/72 -?-?-?-?-?-?-?-?-?-?-?-?- 165 -?-?-?-?-?-?-?-?-?-?-?-?- JV- CRL off by o usha 5 days. New melissa given. rivka sent to pharmacy. declines NIPT and desires carrier screen. 08/11/23 -?-?-?-?-?-?-?-?-?-?-?-?- 12w 4d 142 lb (-3 lb) 106/69 -?-?-?-?-?-?-?-?-?-?-?-?- 157 -?-?-?-?-?-?-?-?-?-?-?-?- LC- no vb/crampi ng. [facility] anatomy ordered. LC- no vb/cramping. [facility] marvin amy ordered. declines afp . 09/06/23 -?-?-?-?-?-?-?-?-?-?-?-?- 16w 2d 145 lb (+0 oz) 112/74 Negative -?-?-?-?-?-?-?-?-?-?-?-?- Negative 147 -?-?-?-?-?-?-?-?-?-?-?-?- MH-No VB. Nausea improving. Denies concerns 10/05/23 -?-?-?-?-?-?-?-?-?-?-?-?- 20w 3d 146 lb (+16 oz) 111/76 -?-?-?-?-?-?-?-?-?-?-?-?- 140 20 -?-?-?-?-?-?-?-?-?-?-?-?- kw- no vb/crampi ng. noticing fm. on asa 81mg for covid during . NIPT today for possible choroid plexus cysts found on US. Report not read yet but US tech indicated measurements were taken when pt asked. pt reassured and discussed in depth. 11/05/23 -?-?-?-?-?-?-?-?-?-?-?-?- 24w 6d 153 lb 8 oz (+8 lb 8 oz) 121/80 Negative -?-?-?-?-?-?-?-?-?-?-?-?- Negative 143 24 -?-?-?-?-?-?-?-?-?-?--?-?- LC- no vb/ctc/lo f. good fm. 28 week labs ordered. desires to do pelvic floor pt prior to delivery for preparation 11/29/23 -?-?-?-?-?-?-?-?-?-?-?-?- 28w 2d 157 lb (+12 lb) 117/78 -?-?-?-?-?-?-?-?-?-?-?-?- 140 29 -?-?-?-?-?-?-?-?-?-?-?-?- SM- no vb lof go od fm no regular ctx SM- no vb lof good fm no reg ular ctx DISCUSSED 1 hr results 12/16/23 -?-?-?-?-?-?-?-?-?-?-?-?- 30w 5d 158 lb 6 oz (+13 lb 6 oz) 120/80 Negative -?-?-?-?-?-?-?-?-?-?-?-?- Negative 140 29 -?-?-?-?-?-?-?-?-?-?-?-?- KW- no vb/lof/ct x. good fm. Discussed 3 hour results. Blood sugars under parameters. doing well. will plan 36 week US. 01/03/24 -?-?-?-?-?-?-?-?-?-?-?-?- 33w 2d 155 lb 6 oz (+10 lb 6 oz) 108/68 Negative -?-?-?-?-?-?-?-?-?-?-?-?- Negative 143 32 -?-?-?-?-?-?-?-?-?-?-?-?- MH-NO VB, LOF. G ood FM. Glucose readings WNL. Had GI flu last week, reassured concerning weight loss 01/12/24 -?-?-?-?-?-?-?-?-?-?-?-?- 34w 4d 156 lb 4 oz (+11 lb 4 oz) 110/70 Trace -?-?-?-?-?-?-?-?-?-?-?-?- Negative 145 32 -?-?-?-?-?-?-?-?-?-?-?-?- JV- no lof, vagi nal bleeding, or dec fm. plan growth scan in 2 weeks. JV- no lof, vaginal bleeding , or dec fm. plan growth scan in 2 weeks. all glucose levels are normal. 01/27/24 -?-?-?-?-?-?-?-?-?-?-?-?- 36w 5d 163 lb 4 oz (+18 lb 4 oz) 124/75 Negative -?-?-?-?-?-?-?-?-?-?-?-?- Negative 135 37 Cephalic -?-?-?-?-?-?-?-?-?-?-?-?- KW- no vb/lof/ct x. good fm. no VE today. GBS today. 02/02/24 -?-?-?-?-?-?-?-?-?-?-?-?- 37w 4d 163 lb 8 oz (+18 lb 8 oz) 110/72 Negative -?-?-?-?-?-?-?-?-?-?-?-?- Negative 145 33 Cephalic 1 -?-?-?-?-?-?-?-?-?-?-?-?- 50 -3 KW- no vb/ lof/reg ctx. good fm. GBS neg. Growth US ordered for S<D 02/10/24 -?-?-?-?-?-?-?-?-?-?-?-?- 38w 5d 163 lb 6.4 oz (+18 lb 6.4 oz) 119/80 -?-?-?-?-?-?-?-?-?-?-?-?- 123 33 33.5 Cephalic -?-?-?-?-?-?-?-?-?-?-?-?- LC-no vb/ctx/lof . good fm. cephalic on ultrasound. LC-no vb/ctx/lof. good fm. c ephalic on ultrasound. adequate growth on us on 02/02. LC-no vb/ctx/lof. good fm. c ephalic on ultrasound. adequate growth on us on 02/02. glucose controlled. declines ve. LC-no vb/ctx/lof. good fm. c ephalic on ultrasound. adequate growth on us on 02/02. glucose controlled. declines ve.reviewed likely iol around 40 weeks for GDM diet controlled. 02/17/24 -?-?-?-?-?-?-?-?-?-?-?-?- 39w 5d 165 lb (+20 lb) 116/82 Negative -?-?-?-?-?-?-?-?-?-?-?-?- Negative 140 35 Cephalic 2 -?-?-?-?-?-?-?-?-?-?-?-?- 60 -3 KW-no vb/l of/ctx. good fm. REMI 26.8 per SM. IOL tonight with cytotec NST FHR Rate Baby A Baseline: 140 Variability:: Moderate Accelerations:: 15 x 15 Decelerations:: None NST Reactive:: Yes FHR Category:: Category I Uterine Activity:: q3-5 ROS Constitutional Constitutional: Reports systems reviewed and no addt'l complaints, except as documented ENT HEENT: Reports systems reviewed and no addt'l complaints, except as documented Cardiovascular Cardiovascular: Reports systems reviewed and no addt'l complaints, except as documented Respiratory/Chest Respiratory/Chest: Reports systems reviewed and no addt'l complaints, except as documented Gastrointestinal Gastrointestinal: Reports systems reviewed and no addt'l complaints, except as documented and nausea; Denies abdominal pain Genitourinary Genitourinary: Reports systems reviewed and no addt'l complaints, except as documented, contractions Details: present and frequency (regular ) and movement Details: present Musculoskeletal Musculoskeletal: Reports systems reviewed and no addt'l complaints, except as documented Integumentary Integumentary: Reports as per HPI Neurologic Neurologic: Reports systems reviewed and no addt'l complaints, except as documented Endocrine Endocrinology: Reports systems reviewed and no addt'l complaints, except as documented Vital Signs Vital Signs Vital Signs: 02/17/24 17:22 02/17/24 17:22 Pulse Rate 83 Blood Pressure 120/80 BP Systolic 120 BP Diastolic 80 Weight Weight: 164 lb Body Mass Index (BMI) 26.0 Physical Exam Const alert, oriented x3 and healthy appearing Constitutional Narrative: uncomfortable with contractions HEENT normocephalic and moist oral mucous membranes Head and Scalp: atraumatic Neck full ROM, no lymphadenopathy, supple and thyroid normal General: trachea midline Thyroid: thyroid normal Lymph Lymphatic: no lymphadenopathy noted Chest inspection of chest normal Resp normal respiratory effort Cardio regular rate GI normal to inspection, nondistended, normoactive bowel sounds, soft to palpation and non-tender Inspection: gravid external exam normal Bimanual Exam - Vag & Uterus: uterus non-tender Manual OB Exam: estimated gestational size appropriate, presentation cephalic, dilated, effaced and station Extremity normal to inspection General Extremity: Negative for edema Skin no rashes or lesions noted Neuro deep tendon reflexes 2+ bilaterally Motor Exam: strength 5/5 throughout and clonus absent Psych mental status grossly normal Labs Labs Labs: Blood Type A POSITIVE Antibody Screen NEGATIVE Hct 33.9 % (37-47) L Hgb 11.3 g/dL (12.0-15.0) L Obstetrics Ultrasound Syphilis Total Ab Non-reactive Rubella IgG Antibody Reactive (Nonreactive) Hep Bs Antigen Non-Reactive (Nonreactive) Hepatitis C Antibody Non-Reactive (Nonreactive) Chlamydia DNA (DORIS) Negative (Negative) N.gonorrhoeae DNA (DORIS) Negative (Negative) HIV 1&2 Antibody Non-Reactive (Nonreactive) Glucose 1 Hr 50 gm 176 mg/dL (70-140) H Gest Glucose Tolerance MG/DL Assessment & Plan (1) Uterine size date discrepancy : COMMENT: S<D . 37.4 on us/ no biometrics ordered. (2) Gestational diabetes mellitus (GDM) affecting , antepartum: COMMENT: Diet controlled-36 week growth US 18% plan 40 week IOL for diet controlled GDM (3) Anemia affecting in third trimester: COMMENT: iron recommended repeat cbc in 4 weeks. 01/03:resolved (4) Supervision of high-risk : QUALIFIERS: Trimester: second trimester Qualified Code(s): O09.92 - Supervision of high risk , unspecified, second trimester COMMENT: PRR , MELISSA 02/25/24 surprise Siva (5) : QUALIFIERS: Weeks of gestation: 39 weeks Qualified Code(s): Z3A.39 - 39 weeks gestation of COMMENT: GBS neg, NIPT low risk, carrier testing neg. . afp declined. normal anatomy (6) Polyhydramnios: COMMENT: proceed with IOL (7) Gestational diabetes: PLAN: Plan Patient presents IOL, plan management for with pit fb. Pain management: plans epidural. GBS negative. Management of any complications: poly and diabetes I have reviewed the [facility] and made any clinically relevant updates.
[2024-02-17 18:29] LABS: Absolute Neutrophil Count 8.1 X10^3/uL (2.0-7.7); Basophil# 0.05 X10^3/uL; Basophil% 0.5 % (0-1); Eosinophil# 0.21 X10^3/uL; Eosinophils% 1.9 % (0-5); Hematocrit 33.9 % (37-47); Hemoglobin 11.3 g/dL (12.0-15.0); Lymphocyte % 17.5 % (19-41); Mean Corp Hgb Conc 33.3 g/dL (32-36); Mean Corpuscular Hgb 29.1 pg (27.0-32.0); Mean Corpuscular Volume 87.4 fL (81-99); Monocyte% 5.5 % (0-10); NRBC Flagged by Analyzer 0 % (0-5); Neutrophil # 8.07 X10^3/uL (2.7-7.7); Neutrophil % 74.2 % (47-70); Platelet Count 196 K/mm3 (150-450); RBC Distribution Width CV 14.2 % (11.6-14.6); Red Blood Count 3.88 M/mm3 (4.2-5.4); White Blood Count 10.9 K/mm3 (4.4-11.0)
[2024-02-17 18:34] LABS: Bedside Glucose 74 mg/dL (74-106)
[2024-02-17 18:34] LABS: Bedside Glucose 73 mg/dL (74-106)
[2024-02-17 19:08] LABS: Syphilis Antibodies Non-reactive
[2024-02-17] MEDS: Lactated Ringers 1,000 ML 50 ML IV (19:10)
[2024-02-17] MEDS: 0.9% Normal Saline Single 100 ML IV.SOLN. INTRA-UTER (19:46)
[2024-02-17] MEDS: Oxytocin 15 Units/NS 250ml 15 UNITS/250 ML IV.SOLN 2 UNITS IV (19:50)
[2024-02-17 22:40] LABS: Bedside Glucose 95 mg/dL (74-106)
[2024-02-18] VITALS (61 sets, daily range): BP systolic 99–146; BP diastolic 55–84; PULSE 75–99; RESP 14–16; TEMP 36.3–37; O2SAT 90–100
[2024-02-18] MEDS: LACTATED RINGERS 500 ML 999 ML IV ×2 (00:31→02:01)
[2024-02-18] MEDS: fentaNYL-bupivacaine (epidural) 100 ML BAG EPIDURAL ×2 (01:19→04:35)
[2024-02-18] MEDS: Ondansetron 4 MG/2 ML Vial IV (01:58)
[2024-02-18 03:28] LABS: Bedside Glucose 81 mg/dL (74-106)
[2024-02-18] MEDS: Lactated Ringers 1,000 ML 200 ML IV (04:37)
[2024-02-18 06:42] LABS: Bedside Glucose 76 mg/dL (74-106)
[2024-02-18 07:35] LABS: Bedside Glucose 83 mg/dL (74-106)
[2024-02-18 08:34] LABS: Bedside Glucose 82 mg/dL (74-106)
--- NOTE | 2024-02-18 09:10 | NURSING ---
this RN and patient notice during post delivery Pitocin bolus that upper forearm was swollen and painful to bend, IV noted to be infiltrated; this RN called to inform her and she states to adminster IM pitocin 10mu now and closely watch bleeding and update her if needed
--- NOTE | 2024-02-18 09:20 | EX.PCM.OBRPT ---
Assessment & Plan (1) Polyhydramnios: COMMENT: proceed with IOL (2) Uterine size date discrepancy : COMMENT: S<D . 37.4 on us/ no biometrics ordered. (3) Gestational diabetes mellitus (GDM) affecting , antepartum: COMMENT: Diet controlled-36 week growth US 18% plan 40 week IOL for diet controlled GDM (4) Anemia affecting in third trimester: COMMENT: iron recommended repeat cbc in 4 weeks. 01/03:resolved (5) Supervision of high-risk : QUALIFIERS: Trimester: second trimester Qualified Code(s): O09.92 - Supervision of high risk , unspecified, second trimester COMMENT: PRR , MELISSA 02/25/24 surprise Siva (6) : QUALIFIERS: Weeks of gestation: 39 weeks Qualified Code(s): Z3A.39 - 39 weeks gestation of COMMENT: GBS neg, NIPT low risk, carrier testing neg. . afp declined. normal anatomy (7) Vaginal delivery: COMMENT: SM 40 IOL poly gdm girl Idalina Maternal Data Information MELISSA Calculator Estimated Delivery Date Method Current WG Current Estimate 02/19/24 Ultrasound #1 39w 6d Other Estimates 02/25/24 LMP (Certain) 39w 0d Vaginal Delivery Operative Information Pre-Operative Diagnosis: see a/p diagnoses Post-Operative Diagnosis: same Surgery / Procedure Performed: Spontaneous Vaginal Delivery Type of Anesthesia: Epidural Special Medications: none Estimated Blood Loss: 200 Fluids Replaced: crystalloid Findings Description of Procedure: Patient began pushing and delivered the head in the MICHELLE presentation. The head was delivered atraumatically. The anterior and posterior shoulders delivered without complication followed by the rest of the and the was placed on the maternal abdomen. Delayed cord clamping was employed for approximately 60 seconds. Cord was clamped and cut and gentle traction was applied to the cord and the placenta delivered spontaneously immediately following it was noted to be intact with three-vessel cord. The perineum and vagina were inspected and noted to have a first degree perineal laceration which was repaired in the usual fashion with 3-0 vicryl rapide.. EBL was 200 cc. Patient and infant tolerated delivery well. Amniotic Fluid Description: Clear Placental Delivery Description: Spontaneous Placenta Disposition: [facility] Cord Vessel Description: 3 Vessels Cord Entanglement: None Delayed Cord Clamping: Yes Post Vaginal Delivery Medications Given After Delivery: IV Pitocin Episiotomy Description: None Complication Complications: None Procedures Urinary/Genital 52xxx-59xxx: [id number] Vaginal Delivery [facility]
[2024-02-18] MEDS: Oxytocin 10 UNITS/ML Vial IM (09:30)
--- NOTE | 2024-02-18 09:35 | DCINST_ITS ---
Discharge Instructions Follow Up Care Test Results: Test results from this visit will be discussed in further detail at your follow- up appointment, if applicable. Discharge Plan Admission Admit Date/Time: 02/17/24 16:50 Attending Provider: Lori Yu Primary Care Provider: Suki Simeon Primary Discharge Orders/Prescriptions Prescriptions: No Action PNV-DHA 27 mg iron-1 mg -300 mg capsule 1 cap PO DAILY omega 0-xoz-pdg-fish oil [Fish Oil] 60-90-500 mg capsule 1 cap PO DAILY aspirin 81 mg tablet,delayed release (DR/EC) 81 mg PO DAILY ferrous sulfate [Feosol] 325 mg (65 mg iron) tablet 325 mg PO DAILY (DME) Blood Glucose Test Strip See Rx Instructions .MEDSUPPLY Qty: 120 5RF Rx Instructions: As directed-fasting & 2 hr post meals (DME) blood-glucose meter Misc See Rx Instructions .MEDSUPPLY Qty: 1 0RF Rx Instructions: As directed- Test fasting and 2 hours after meals (DME) lancets Misc See Rx Instructions .MEDSUPPLY Qty: 200 5RF Rx Instructions: As directed-fasting & 2 hr post meals Referrals / Follow Up: Care Physician,No Primary [Primary Care Provider] - Disposition Disposition (needs filled in before D/C Order can be placed): Home, Self Care
[2024-02-18 10:06] LABS: Bedside Glucose 77 mg/dL (74-106)
[2024-02-18] MEDS: Naproxen 500 MG Tablet PO (18:15)
[2024-02-18] MEDS: Acetaminophen 500 MG Tablet 1000 MG PO (21:07)
[2024-02-19] VITALS (8 sets, daily range): BP systolic 111–118; BP diastolic 64–77; PULSE 72–88; RESP 16–18; TEMP 36.5–36.6
[2024-02-19 06:13] LABS: Bedside Glucose 70 mg/dL (74-106)
--- NOTE | 2024-02-19 09:05 | PCM.PN.OB ---
Subjective Subjective Patient doing well without complaints. Tolerating PO. Ambulating and voiding without difficulty. Feeding well. Denies chest pain, shortness of breath, calf pain/swelling, fevers, chills, lightheadedness. Objective Data Objective Data Vital Signs: Vital Signs Temp Pulse Resp BP Pulse Ox O2 Del Method 97.8 F 86 18 118/70 98 Room Air 02/19/24 08:10 02/19/24 08:10 02/19/24 08:10 02/19/24 08:10 02/18/24 07:08 02/19/24 00:46 Oxygen Delivery Method Room Air Weight: 164 lb Body Mass Index (BMI) 26.0 Intake & Output: Intake and Output for Last 24 Hours 02/17/24 02/18/24 02/19/24 23:59 23:59 23:59 Intake Total 4.47 / 4.47 2859.01 / 2859.01 Output Total 2400 / 2400 Balance 4.47 / 4.47 459.01 / 459.01 Lab / Micro Data 02/17/24 18:00 Labs: Laboratory Results - last 24 hr 02/18/24 09:40: POC Glucose 77 02/19/24 05:53: POC Glucose 70 L ROS Constitutional Constitutional: Denies chills, fatigue, fever(s), poor appetite or weakness Eyes Eyes: Denies blurry vision, change in vision, seeing flashes or spots in vision ENT HEENT: Denies dizziness, headache(s), loss taste/smell or sore throat Cardiovascular Cardiovascular: Denies chest pain, dizziness, dyspnea, irregular heart rhythm, palpitations or rapid heart rate Respiratory/Chest Respiratory/Chest: Denies chest tightness, cough, dyspnea or breast pain Gastrointestinal Gastrointestinal: Denies abdominal pain, constipation or vomiting Genitourinary Genitourinary: Denies dysuria or flank pain Musculoskeletal Musculoskeletal: Denies difficulty walking, joint pain, limited range of motion or numbness Neurologic Neurologic: Denies abnormal movements, abnormal speech, dizziness, numbness, seizure-like activity or syncope Psychiatric Psychiatric: Denies anxiety, behavioral changes, change in appetite, confusion, depression or suicidal thoughts Physical Exam Const alert, oriented x3 and no apparent distress General Appearance: cooperative and comfortable Resp normal respiratory effort Cardio regular rate GI normal to inspection, nondistended, normoactive bowel sounds GI Narrative: uterus is firm below umbilicus Palpation: soft Back/Spine no CVA tenderness and thoraco-lumbar ROM normal Extremity normal to inspection, no clubbing, cyanosis or edema, no calf tenderness and no pedal edema Psych mental status grossly normal, thought process normal, cooperative, affect normal, speech normal, activity/motor behavior normal, denies homicidal ideation and denies suicidal ideation Assessment & Plan (1) Vaginal delivery: COMMENT: SM 40 IOL poly gdm girl Idalina (2) Gestational diabetes mellitus (GDM) affecting , antepartum: COMMENT: Diet controlled-36 week growth US 18% plan 40 week IOL for diet controlled GDM PLAN: Plan s/p PPD # 1 1. routine post delivery care 2. breast feeding- support given 3. rh positive 4. rubella immune 5. Patient would like to go home today. will plan for later today and follow up in 6 weeks
== END 2024-02-19 14:30 | disposition home or self-care (01) | DRG 807 ==
PROVIDERS: Admitting Provider Obstetrics & Gynecology; Visit Provider Obstetrics & Gynecology
DX: O40.3XX0 Polyhydramnios, third trimester, not applicable or unspecified (principal); Z37.0 Single live birth; O24.420 Gestational diabetes mellitus in childbirth, diet controlled; O26.843 Uterine size-date discrepancy, third trimester; O70.0 First degree perineal laceration during delivery; Z3A.39 39 weeks gestation of pregnancy
CPT/HCPCS: 59025; 59050; 82962; 85025; 86780; 86850; 86900; 86901; 99221; J7120; G0378; J2405

== ENCOUNTER → 2025-06-25 | Outpatient (CLI) | payer BC, SELFPAY ==
[2025-06-25 12:59] LABS: Hematocrit 38.3 % (37-47); Hemoglobin 13.1 g/dL (12.0-15.0); Immature Granulocytes Count 0.020 X10^3/uL (0.0-0.0); Mean Corp Hgb Conc 34.2 g/dL (32-36); Mean Corpuscular Volume 88.7 fL (81-99); Mean Platelet Vol. 11.0 fl (6.2-12.0); NRBC Flagged by Analyzer 0 % (0-5); Platelet Count 196 K/mm3 (150-450); RBC Distribution Width CV 12.0 % (11.6-14.6); RBC Distribution Width SD 39.1 fl (35.1-43.9); Red Blood Count 4.32 M/mm3 (4.2-5.4); White Blood Count 6.8 K/mm3 (4.4-11.0)
[2025-06-25 13:22] LABS: HIV Nonreactive (Nonreactive); Hepatitis B Surface Antigen Nonreactive (Nonreactive); Hepatitis C Antibody Nonreactive (Nonreactive); Syphilis Antibodies Nonreactive (Nonreactive)
== END | disposition home or self-care (01) ==
PROVIDERS: Registered Nurse; Referring Provider Obstetrics & Gynecology; Visit Provider Obstetrics & Gynecology
DX: O09.299 Supervision of pregnancy with other poor reproductive or obstetric history, unspecified trimester (principal); Z3A.00 Weeks of gestation of pregnancy not specified; Z68.32 Body mass index [BMI] 32.0-32.9, adult
CPT/HCPCS: 36415; 83036; 85025; 86703; 86762; 86780; 86803; 86850; 86900; 86901; 87340

== ENCOUNTER → 2025-06-25 | Outpatient (CLI) | payer BC, SELFPAY ==
[2025-06-27 05:07] LABS: Chlamydia By Nucleic Acid AMP Negative (Negative); Gonococcus By Nucleic Acid AMP Negative (Negative)
== END | disposition home or self-care (01) ==
LOC: LABSPEC 11:02
PROVIDERS: Referring Provider Registered Nurse; Visit Provider Registered Nurse
DX: O09.90 Supervision of high risk pregnancy, unspecified, unspecified trimester (principal); Z3A.00 Weeks of gestation of pregnancy not specified
CPT/HCPCS: 87086; 87088; 87491; 87591

== ENCOUNTER → 2025-10-30 | Outpatient (CLI) | payer BC, SELFPAY ==
--- OUTSIDE RECORDS SUMMARY | 2025-10-30 10:27 | XMS RPT_ITS | CCD ---
Author Organization [facility] Care Team Providers Care Proposal Development Manager Name Role Phone JENNIE Arellano Attending Provider [phone] JENNIE Arellano Attending Provider [phone] Care Physician, No Primary Primary Care Provider Unavailable Care Physician, No Primary Referring Provider Un available ABIEL Mcpherson Attending Provider Care Physician, No Primary Primary Care Provider Unavailable Care Physician, No Primary Referring Provider Un available Dr. Mavis Aranda Attending Provider Care Physician, No Primary Primary Care Provider Unavailable Care Physician, No Primary Referring Provider Un available Dr. Mavis Aranda Attending Provider ABIEL Mcpherson Attending Provider CAMILA Serrano NP Attending Provider ABIEL Fragoso Attending Provider Care Physician, No Primary Primary Care Provider Unavailable Care Physician, No Primary Referring Provider Un available Dr. Lori Schneider Attending Provider Care Physician, No Primary Primary Care Provider Unavailable Care Physician, No Primary Referring Provider Un available ABIEL Mcpherson Attending Provider Care Physician, No Primary Referring Provider Un available Care Physician, No Primary Primary Care Provider Unavailable CAMILA Serrano NP Attending Provider Thompson LAMB, Estelle Nunez Unavailable Care Physician, No Primary Referring Provider Un available ABIEL Fragoso Attending Provider Care Physician, No Primary Primary Care Provider Unavailable ABIEL Mcpherson Attending Provider Dr. Lori Schneider Attending Provider [phone] Maggie CAR WIPER, CAR WIPER-C Laine Attending Provider [phone] Dr. Mavis Aranda Attending Provider [phone] ABIEL Fragoso Referring Provider [phone] ABIEL Fragoso Other Provider [phone] Care Physician, No Primary Referring Provider Un available ABIEL Fragoso Attending Provider [phone] Dr. Lori Schneider Referring Provider [phone] Dr. Lori Schneider Other Provider [phone] Dr. Lori Schneider Admit Provider [phone] MCPHERSON, LANDON Referring Unavailable MCPHERSON, LANDON Referring Unavailable MCPHERSON, LANDON Referring Unavailable MCPHERSON, LANDON Referring Unavailable MCPHERSON, LANDON Referring Unavailable MCPHERSON, LANDON Referring Unavailable Care Physician, No Primary Primary Care Provider Unavailable Care Physician, No Primary Referring Provider Un available Dr. Mavis Aranda DO Attending Provider Dr. Maivs Aranda DO Referring Provider Yumiko Mcpherson CNM Attending Provider [phone] Yumiko Mcpherson CNM Referring Provider [phone] Care Physician, No Primary Primary Care Physicia n Unavailable Dr. Mavis Aranda DO Attending Physician Yumiko Mcpherson CNM Attending Physician [phone] Dr. Lori Schneider MD Attending Physician NO PRIMARY CARE, MD Primary Care Unavailable BUSTER GARCIA Attending Unavailable LORI SCHNEIDER Referring UnavailJelena Cid CNM Attending Physician [phone] Yumiko Mcpherson Attending Unavailable Yumiko Mcpherson Referring Unavailable Care Physician, No Primary Primary Care Unava ilable Lori Schneider Attending Unavailable Care Physician, No Primary Referring Unava ilable Care Physician, No Primary Primary Care Unava ilable Jelena Fragoso Attending Unavailable Care Physician, No Primary Referring Unava ilable Care Physician, No Primary Primary Care Unava ilable Jelena Fragoso Attending Unavailable Care Physician, No Primary Referring Unava ilable Care Physician, No Primary Primary Care Unava ilable Mavis Aranda Attending [facility] e Care Physician, No Primary Referring Unava ilable Care Physician, No Primary Primary Care Unava ilable Mavis Aranda Attending [facility] Mavis Guillen Referring [facility] e Care Physician, No Primary Primary Care Unava ilable Medications Current Medications Medication Drug Class(es) Dates Sig (Normalized) Sig (Original) Blood-Glucose Meter (7 sources) Start: 12-09-2023 Blood-Glucose Meter Active 0 .MEDSUPPLY December 09, 2023 1:00am As directed- Test fasting and 2 hours after meals Start: 12-09-2023 Blood-Glucose Meter Active 0 .MEDSUPPLY December 09, 2023 12:00am As directed- Test fasting and 2 hours after meals docosahexaenoic acid 200 mg oral capsule (5 sources) Start: 05-31-2025 Docosahexaenoi c Acid ( Dha) 200 mg capsule Active mg PO May 31, 2025 12:00am Complies with drug therapy 21 day ethinyl estradiol 0.424495 mg/hr / etonogestrel 0.005 mg/hr vaginal system (4 sources) Progestin, Estrogen Start: 06-23-2018 Etonogestrel-Ethinyl Estradiol (NUVARING) 0.12-0.015 mg/24 hr vaginal ring Indications: Polymenorrhea Use 1 Each vaginally as directed. Insert vaginally x 24 d then remove x 4 d for monthly period For no period change the same date monthly 3 Each 3 06/23/2018 Active Comment on above: Use 1 Each vaginally as directed. Insert vaginally x 24 d then remove x 4 d for monthly period For no period change the same date monthly ethinyl estradiol/drospirenone (BELIA, 28, ORAL) (4 sources) ethinyl estradiol/drospirenone (BELIA, 28, ORAL) Take by mouth. 0 Active Comment on above: Take by mouth. etonogestrel 68 mg drug implant (4 sources) Progestin etonogestrel (NEXPLANON) subdermal implant 68 mg 68 mg by SUBDERMAL route. Placed 04/15/2017. 0 Active Comment on above: 68 mg by SUBDERMAL r oute. Placed 04/15/2017. Iron (5 sources) Start: 05-31-2025 Pnv No.163-Iro n-Folate No.10 (Pnv Tabs 20-1) 20 mg iron- 1 mg tablet Active {tbl} PO DAILY May 31, 2025 12:00am Complies with drug therapy Start: 05-31-2025 Pnv No.163-Iro n-Folate No.10 (Pnv Tabs 20-1) 20 mg iron- 1 mg tablet Active {tbl} PO DAILY May 31, 2025 12:00am pyridoxine hydrochloride 25 mg oral tablet (5 sources) Start: 05-31-2025 take 1 tablet by mouth three times daily Pyridoxine (Vitamin B6) 25 mg tablet Active 25 mg PO THREE TIMES A DAY May 31, 2025 12:00am Complies with drug therapy Completed/Discontinued Medications Medication Drug Class(es) Dates Sig (Normalized) Sig (Original) aspirin 81 mg delayed release oral tablet (9 sources) Platelet Aggregation Inhibitor, Nonsteroidal Anti-inflammatory Drug Start: 01-12-2024 End: 05-31-2025 take 1 tablet by mouth once daily Aspirin 81 mg tablet,delayed release (DR/EC) Discontinued 81 mg PO DAILY January 12, 2024 1:00am May 31, 2025 11:34am covid Blood-Glucose Meter misc (5 sources) Start: 12-09-2023 End: 03-31-2024 Blood-Glucose Meter misc Discontinued 0 .MEDSUPPLY 1 0 December 09, 2023 1:00am March 31, 2024 11:10am As directed- Test fasting and 2 hours after meals ferrous sulfate 325 mg oral tablet (6 sources) Start: 02-17-2024 End: 03-31-2024 take 1 tablet by mouth once daily Ferrous Sulfate (Feosol) 325 mg (65 mg iron) tablet Discontinued 325 mg PO DAILY February 17, 2024 12:00am March 31, 2024 11:10am anemia Multivit 60-Vfdo-Nirujz 1-Dha (Pnv-Dha) 27 mg iron-1 mg -300 mg capsule (15 sources) Start: 07-06-2023 End: 05-31-2025 Multivit 06-Rbic-Ttniwy 1-Dha (Pnv-Dha) 27 mg iron-1 mg -300 mg capsule Discontinued 1 NMA PO DAILY July 06, 2023 12:00am May 31, 2025 11:31am Start: 07-06-2023 take 1 capsule by mo ut once daily Multivit 82-Bnvp-Dyibgw 1-Dha (Pnv-Dha) 27 mg iron-1 mg -300 mg capsule Active 1 CAP PO DAILY July 06, 2023 12:00am Start: 07-06-2023 Multivit 47-Ir on-Folate 1-Dha (Pnv-Dha) 27 mg iron-1 mg -300 mg capsule Active CAP PO July 05, 2023 11:00pm Start: 07-06-2023 Multivit 47-Ir on-Folate 1-Dha (Pnv-Dha) 27 mg iron-1 mg -300 mg capsule Active CAP PO July 06, 2023 12:00am [place] 0-Zzl-Npw-Fish Oil (Fi sh Oil) 60-90-500 mg capsule (15 sources) Start: 07-06-2023 End: 03-31-2024 [place]cher 8-Dmz-Xri-Fish Oil (Fi sh Oil) 60-90-500 mg capsule Discontinued 1 NMA PO DAILY July 06, 2023 12:00am March 31, 2024 11:10am Start: 07-06-2023 take 1 capsule by mo [facility] once daily [place]cher 0-Npq-Mnp-Fish Oil (Fish Oil) 60-90-500 mg capsule Active 1 CAP PO DAILY July 05, 2023 11:00pm Start: 07-06-2023 take 1 capsule by [facility] once daily [place]cher 3-Ocb-Dbo-Fish Oil (Fish Oil) 60-90-500 mg capsule Active 1 CAP PO DAILY July 06, 2023 12:00am ondansetron 4 mg disintegrating oral tablet (15 sources) Serotonin-3 Receptor Antagonist Start: 07-14-2023 End: 02-17-2024 take 1 tablet by mouth every six hours as needed for nausea and vomiting Ondansetron 4 mg tablet,disintegrating Discontinued 4 mg PO EVERY 6 HOURS as needed for nausea and vomiting 30 3 July 14, 2023 12:00am February 17, 2024 7:04pm promethazine hydrochloride 25 mg oral tablet (14 sources) Phenothiazine Start: 09-10-2023 End: 02-17-2024 Promethazine 25 mg tablet Discontinued 25 mg PO ONCE 30 0 September 10, 2023 12:00am February 17, 2024 7:04pm may repeat once in 12 hours Problems Active Problems Problem Classification Problem Date Documented Date Episodic/Chronic Contraceptive and procreative management (2 sources) Encounter for other general counseling and advice on procreation; Translations: [Other procreative management counseling and advice] Episodic Diabetes or abnormal glucose tolerance complicating ; childbirth; or the puerperium (20 sources) Abnormal glucose level; Translations: [Abnormal glucose complicating ] Onset: 09-10-2025 11-29-2023 Episodic Comment on above: Diet controlled-36 w [place] growth US 18%plan 40 week IOL for diet controlled GDM Immunizations and screening for infectious disease (8 sources) Patient encounter status; Translations: [Encounter for screening for COVID-19] Episodic Other complications of (13 sources) Anemia in mother complicating , childbirth AND/OR puerperium; Translations: [Anemia complicating , third trimester] 11-29-2023 Chronic Comment on above: iron recommended rep eat cbc in 4 weeks. 01/03:resolved Other complications of (20 sources) Anemia complicating , third trimester; Translations: [Anemia of mother, antepartum condition or complication] 11-29-2023 Chronic Other complications of (20 sources) High risk ; Translations: [Supervision of high risk , unspecified, unspecified trimester] 07-06-2023 Episodic Comment on above: , RAMÓN 01/19/26, P C Idalina, Siva PRR , RAMÓN 4 surprise Siva PRR , RAMÓN 6, girl PC Idalina, Siva Other complications of (20 sources) Supervision of high risk , unspecified, unspecified trimester; Translations: [Supervision of unspecified high-risk ] Onset: 09-10-2025 07-14-2023 Episodic Other complications of (8 sources) Fundal height high for dates; Translations: [Uterine size-date discrepancy, unspecified trimester] 02-02-2024 Episodic Comment on above: S Other complications of (10 sources) Uterine size-date discrepancy, unspecified trimester; Translations: [Uterine size date discrepancy, antepartum condition or complication] 02-02-2024 Episodic Other complications of (14 sources) Supervision of with other poor reproductive or obstetric history, unspecified trimester; Translations: [Prior complicated by SGA (small for gestational age), antepartum] Onset: 09-10-2025 05-31-2025 Episodic Other complications of (13 sources) History of gestational diabetes mellitus; Translations: [Supervision of with other poor reproductive or obstetric history, unspecified trimester] 05-31-2025 Episodic Other connective tissue disease (3 sources) Pelvic floor dysfunction; Translations: [Other specified disorders of muscle] 01-18-2024 Episodic Other connective tissue disease (1 source) Muscle weakness; Translations: [Muscle weakness (generalized)] 03-30-2024 Episodic Other connective tissue disease (1 source) Muscle weakness (generalized); Translations: [Muscle weakness] Onset: 03-30-2024 Episodic Other connective tissue disease (1 source) Other specified disorders of muscle; Translations: [Pelvic floor dysfunction] Onset: 01-03-2024 Episodic Other and delivery including normal (20 sources) ; Translations: [Encounter for supervision of normal , unspecified, unspecified trimester] 07-20-2023 Episodic Comment on above: SM 40 IOL poly g dm girl Idalina elects NIPT with Gen darlin GBS neg, NIPT low ri sk, carrier testing neg. . afp declined. normal anatomy NIPT low risk NIPT low risk, jamey l anatomy scan Polyhydramnios and other problems of amniotic cavity (7 sources) Polyhydramnios; Translations: [Polyhydramnios, unspecified trimester, not applicable or unspecified] 02-18-2024 Episodic Comment on above: proceed with IOL Residual codes; unclassified (13 sources) H/O: ; Translations: [Personal history of other complications of , childbirth and the puerperium] 05-31-2025 Episodic Comment on above: 1st Residual codes; unclassified (1 source) Personal history of other complications of , childbirth and the puerperium; Translations: [Personal history of other complications of , childbirth and the puerperium] Onset: 09-10-2025 Episodic Residual codes; unclassified (1 source) 21 weeks gestation of ; Translations: [21 weeks gestation of ] Onset: 09-10-2025 Episodic Residual codes; unclassified (1 source) 17 weeks gestation of ; Translations: [17 weeks gestation of ] Onset: 08-17-2025 Episodic Residual codes; unclassified (1 source) 14 weeks gestation of ; Translations: [14 weeks gestation of ] Onset: 07-26-2025 Episodic Residual codes; unclassified (1 source) 10 weeks gestation of ; Translations: [10 weeks gestation of ] Onset: 06-25-2025 Episodic Unclassified (5 sources) Needle stick injury of finger; Translations: [Needlestick injury of finger] Past or Other Problems Problem Classification Problem Date Documented Da te Episodic/Chronic Unclassified (8 sources) Breech position of fetus; Translations: [Breech position of fetus] 02-02-2024 Comment on above: on US at 37.4 weeks version 02/03/24 with SM. REMI 19 on 02/01 Unclassified (6 sources) Full-term ; Translations: [Full-term ] 02-02-2024 Results Test Name Value Interpretation Reference Range Facility [facility] Office Visit Reporton 09-10-2025 [facility] Office Visit Report [facility] [address], [place] [address] OFFICE VISIT Date of Service: 09/10/25 MR#: [id number] Acct: [id number] Name: NORY BUI Rep #: [id number] : 1995 Provider: ABIEL De La Rosa ams Age/Sex: 30/F [place] [facility] [place]: Signed Intake Vital Signs 07/26/25 11:00 08/17/25 10:51 09/10/25 10:25 09/10/25 10:25 Height 5 ft 6.5 in 5 ft 6.5 in 5 ft 6.5 in 5 ft 6.5 in Weight: 154 lb BMI 24.5 BP 110/69 Intake Visit Reasons: 21wk2d ob 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 Is patient in pain?: No Allergies No Known Allergies Allergy (Verified 09/10/25 10:25) Medications ???Medication ???Instructions ???Recorded ???Confirmed ???Type docosahexaenoic acid 200 mg mg PO 05/31/25 09/10/25 History capsule ( DHA) vitamins no.163-iron tab PO DAILY 05/31/25 09/10/25 His tory bis-gly 20 mg-folate no.10 1 mg tablet (PNV Tabs 20-1) pyridoxine (vitamin B6) 25 mg 25 mg PO TID 05/31/25 09/10/25 His tory tablet Last Menstrual Period: 04/14/25 Zika: Zika virus screening: Negative : No PFSH PFSH Medical History Vaginal delivery Successful external cephalic version Anemia affecting Polyhydramnios Gestational diabetes Asthma Family History Grandmother Cancer Breast cancer, and anal cancer Rectal cancer, Onset Age: 79 maternal Breast cancer, Onset Age: 65 Maternal Grandfather Cancer, Onset Age: 50 Maternal- testicular Uncle Cancer, Onset Age: 16 Maternal Brain cancer at 32yo Father Diabetes Social History adopted: No household members: spouse and children housing: house number of children: 1 current occupational status: unemployed current occupation: [employer] current occupational exposures/hazards: No pets and animals: Yes pets and animals: dog(s) history of recent travel: No sexually active: Yes Smoking Status: Never smoker alcohol intake: current alcohol intake frequency: holidays/special occasions only details: NOT WHILE substance use type: does not use well-balanced diet: daily or most days caffeine: Yes Type: coffee Number of servings: 1 eating out: 1-3 times/week during the past year weight has: remained stable what type of physical activity do you participate in: walking frequency: daily duration: 15-30 minutes/day miguel/latter day: Hindu seatbelt use: always do you feel safe at home: Yes additional social history: - Siva History 2 Elective abortions Hx Para 1 Spontaneous abortions Hx # Term Pregnancies Ectopic pregnancies Hx # Pregnancies Multiple births # of living children 1 Past Pregnancies Del. Date Name GA/Weeks Outcome Route Bth Weight Infant Gen Labor Lgth Anesthesia Del Locatn Provider FOB 02/18/24 Idalina 40 live - full term 6# Female epidural [facility] Siva Delivery Date: 02/18/24 Last Updated by: Lizabeth Vega SM- 40 IOL poly GDM HPI 21wk2d ob Details: NORY BUI is a 30 year old who presents for routine OB visit. OB Visit RAMÓN Calculator Estimated Delivery Date Method Current WG Current Estimate 01/19/26 LMP (Certain) 21w 2d Other Estimates 01/19/26 Ultrasound #1 21w 2d Expected Delivery Route/Plan Labor Preferences- CB/BF classes: [] labor support person: [] labor intervention preferences: [] pain management options preferred: [] cut cord/dad catch: [] : [] PP control planned: [] discussed possible routes of delivery and associated risks: [] special requests: [] Specific Issue/Plans Covid status: [] Flu vaccine: [] Tdap vaccine: [] Rhogam: [] LARC form signed: [] Problem list reviewed and updated with the most current plan of care details and appropriate orders placed. Relevant counseling for the gestational age provided. Continue routine care and follow up unless otherwise noted in visit notes/problem list details Initial Weight: Not Recorded Date -???-???-???-???-???- ???-???-???-???-???-? ??-???- EGA Weight BP Urine Prot -???-???-???-???-???- ???-???-???-???-???-? ??-???- Glucose FHR FuHt Pres Dilation -???-???-???-???-???- ???-???-???-???-???-? ??-???- Effaced St Visit Note 06/25/25 -???-???-???-???-???- ???-???-???-???-???-? ??-???- 10w 2d 140 lb 5 oz 114/76 -???-???-???-???-???- ???-???-???-???-???-? ??-???- 168 -???-???-???-???-???- ???-???-???-???-???-? ??-???- JV- CRL cons istent with LMP. desires NIPT. 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 07/26/25 -???-? (more content not included)... Normal [facility] - Chemistry and C hemistry - challengeOrdered By: Jelena Fragoso on 08-17-2025 Glucose Ql (U) Negative [facility] - UrinalysisOrder ed By: Jelena Fragoso on 08-17-2025 Protein Ql (U) Negative [facility] Office Visit Reporton 08-17-2025 [facility] Office Visit Report [facility] [address], [address] [place] [address] OFFICE VISIT Date of Service: 08/17/25 MR#: [id number] Acct: [id number] Name: NORY BUI Rep #: [id number] : 1995 Provider: ABIEL De La Rosa ams Age/Sex: 30/F Location[place] [facility] Status: Signed Intake Vital Signs 06/25/25 08:34 07/26/25 11:00 08/17/25 10:51 Height 5 ft 6.5 in 5 ft 6.5 in 5 ft 6.5 in Weight: 148 lb BMI 23.5 BP 114/76 Intake Visit Reasons: 17wk6d ob Chief Complaint: 17wk 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 Is patient in pain?: No Allergies No Known Allergies Allergy (Verified 08/17/25 10:53) Medications ???Medication ???Instructions ???Recorded ???Confirmed ???Type docosahexaenoic acid 200 mg mg PO 05/31/25 08/17/25 History capsule ( DHA) vitamins no.163-iron tab PO DAILY 05/31/25 08/17/25 His tory bis-gly 20 mg-folate no.10 1 mg tablet (PNV Tabs 20-1) pyridoxine (vitamin B6) 25 mg 25 mg PO TID 05/31/25 08/17/25 His tory tablet Last Menstrual Period: 04/14/25 : No Have you fallen in the past year?: No PFSH PFSH Medical History Vaginal delivery Successful external cephalic version Anemia affecting Polyhydramnios Gestational diabetes Asthma Family History Grandmother Cancer Breast cancer, and anal cancer Rectal cancer, Onset Age: 79 maternal Breast cancer, Onset Age: 65 Maternal Grandfather Cancer, Onset Age: 50 Maternal- testicular Uncle Cancer, Onset Age: 16 Maternal Brain cancer at 32yo Father Diabetes Social History adopted: No household members: spouse and children housing: house number of children: 1 current occupational status: unemployed current occupation: [employer] current occupational exposures/hazards: No pets and animals: Yes pets and animals: dog(s) history of recent travel: No sexually active: Yes Smoking Status: Never smoker alcohol intake: current alcohol intake frequency: holidays/special occasions only details: NOT WHILE substance use type: does not use well-balanced diet: daily or most days caffeine: Yes Type: coffee Number of servings: 1 eating out: 1-3 times/week during the past year weight has: remained stable what type of physical activity do you participate in: walking frequency: daily duration: 15-30 minutes/day miguel/latter day: Hindu seatbelt use: always do you feel safe at home: Yes additional social history: - Siva History 2 Elective abortions Hx Para 1 Spontaneous abortions Hx # Term Pregnancies Ectopic pregnancies Hx # Pregnancies Multiple births # of living children 1 Past Pregnancies Del. Date Name GA/Weeks Outcome Route Bth Weight Gen Labor Lgth Anesthesia Del Locatn Provider FOB 02/18/24 Idalina 40 live - full term 6# Female epidural [facility] Siva Delivery Date: 02/18/24 Last Updated by: Lizabeth RAMIREZ- 40 IOL poly GDM HPI 17wk6d ob Details: NORY BUI is a 30 year old who presents for routine OB visit. OB Visit RAMÓN Calculator Estimated Delivery Date Method Current WG Current Estimate 01/19/26 LMP (Certain) 17w 6d Other Estimates 01/19/26 Ultrasound #1 17w 6d Expected Delivery Route/Plan Labor Preferences- CB/BF classes: [] labor support person: [] labor intervention preferences: [] pain management options preferred: [] cut cord/dad catch: [] : [] PP control planned: [] discussed possible routes of delivery and associated risks: [] special requests: [] Specific Issue/Plans Covid status: [] Flu vaccine: [] Tdap vaccine: [] Rhogam: [] LARC form signed: [] Problem list reviewed and updated with the most current plan of care details and appropriate orders placed. Relevant counseling for the gestational age provided. Continue routine care and follow up unless otherwise noted in visit notes/problem list details Initial Weight: Not Recorded Date -???-???-???-???-???- ???-???-???-???-???-? ??-???- EGA Weight BP Urine Prot -???-???-???-???-???- ???-???-???-???-???-? ??-???- Glucose FHR FuHt Pres Dilation -???-???-???-???-???- ???-???-???-???-???-? ??-???- Effaced St Visit Note 06/25/25 -???-???-???-???-???- ???-???-???-???-???-? ??-???- 10w 2d 140 lb 5 oz 114/76 -???-???-???-???-???- ???-???-???-???-???-? ??-???- 168 -???-???-???-???-???- ???-???-???-???-???-? ??-???- JV- CRL cons istent with LMP. desires NIPT. 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 07/26/25 -???-???-???-???-???- ? (more content not included)... Normal [facility] - Chemistry and C hemistry - challengeOrdered By: Lori Schneider on 07-26-2025 Glucose Ql (U) Negative [facility] - UrinalysisOrder ed By: Lori Schneider on 07-26-2025 Protein Ql (U) Negative [facility] Office Visit Reporton 07-26-2025 [facility] Office Visit Report [facility] [address], [address] [place] [address] OFFICE VISIT Date of Service: 07/26/25 MR#: [id number] Acct: [id number] Name: NORY BUI Rep #: [id number] : 1995 Provider: Dr. Lori amador MD Age/Sex: 29/F Location[place] [facility] [place]: Signed Intake Vital Signs 03/31/24 11:11 06/25/25 08:34 07/26/25 11:00 Height 5 ft 6.5 in 5 ft 6.5 in 5 ft 6.5 in Weight: 142 lb 6 oz BMI 22.6 BP 114/76 Intake Visit Reasons: 14wk 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 Is patient in pain?: No Feel stressed/tense/nervou s/anxious/difficulty sleeping: not at all Allergies No Known Allergies Allergy (Verified 07/26/25 11:01) Medications ???Medication ???Instructions ???Recorded ???Confirmed ???Type docosahexaenoic acid 200 mg mg PO 05/31/25 07/26/25 History capsule ( DHA) vitamins no.163-iron tab PO DAILY 05/31/25 07/26/25 His tory bis-gly 20 mg-folate no.10 1 mg tablet (PNV Tabs 20-1) pyridoxine (vitamin B6) 25 mg 25 mg PO TID 05/31/25 07/26/25 His tory tablet Last Menstrual Period: 04/14/25 Zika: Zika virus screening: Negative : No Have you fallen in the past year?: No PFSH PFSH Medical History Vaginal delivery Successful external cephalic version Anemia affecting Polyhydramnios Gestational diabetes Asthma Family History Grandmother Cancer Breast cancer, and anal cancer Rectal cancer, Onset Age: 79 maternal Breast cancer, Onset Age: 65 Maternal Grandfather Cancer, Onset Age: 50 Maternal- testicular Uncle Cancer, Onset Age: 16 Maternal Brain cancer at 32yo Father Diabetes Social History adopted: No household members: spouse and children housing: house number of children: 1 current occupational status: unemployed current occupation: [employer] current occupational exposures/hazards: No pets and animals: Yes pets and animals: dog(s) history of recent travel: No sexually active: Yes Smoking Status: Never smoker alcohol intake: current alcohol intake frequency: holidays/special occasions only details: NOT WHILE substance use type: does not use well-balanced diet: daily or most days caffeine: Yes Type: coffee Number of servings: 1 eating out: 1-3 times/week during the past year weight has: remained stable what type of physical activity do you participate in: walking frequency: daily duration: 15-30 minutes/day miguel/latter day: Hindu seatbelt use: always do you feel safe at home: Yes additional social history: - Siva History 2 Elective abortions Hx Para 1 Spontaneous abortions Hx # Term Pregnancies Ectopic pregnancies Hx # Pregnancies Multiple births # of living children 1 Past Pregnancies Del. Date Name GA/Weeks Outcome Route Bth Weight Infant Gen Labor Lgth Anesthesia Del Locatn Provider FOB 02/18/24 Idalina 40 live - full term 6# Female epidural [facility] Siva Delivery Date: 02/18/24 Last Updated by: Lizabeth RAMIREZ- 40 IOL poly GDM HPI 14wk OB Details: NORY BUI is a 29 year old who presents for routine OB visit. OB Visit RAMÓN Calculator Estimated Delivery Date Method Current WG Current Estimate 01/19/26 LMP (Certain) 14w 5d Other Estimates 01/19/26 Ultrasound #1 14w 5d Expected Delivery Route/Plan Labor Preferences- CB/BF classes: [] labor support person: [] labor intervention preferences: [] pain management options preferred: [] cut cord/dad catch: [] : [] PP control planned: [] discussed possible routes of delivery and associated risks: [] special requests: [] Specific Issue/Plans Covid status: [] Flu vaccine: [] Tdap vaccine: [] Rhogam: [] LARC form signed: [] Problem list reviewed and updated with the most current plan of care details and appropriate orders placed. Relevant counseling for the gestational age provided. Continue routine care and follow up unless otherwise noted in visit notes/problem list details Initial Weight: Not Recorded Date -???-???-???-???-???- ???-???-???-???-???-? ??-???- EGA Weight BP Urine Prot -???-???-???-???-???- ???-???-???-???-???-? ??-???- Glucose FHR FuHt Pres Dilation -???-???-???-???-???- ???-???-???-???-???-? ??-???- Effaced St Visit Note 06/25/25 -???-???-???-???-???- ???-???-???-???-???-? ??-???- 10w 2d 140 lb 5 oz 114/76 -???-???-???-???-???- ???-???-???-???-???-? ??-???- 168 -???-???-???-???-???- ???-???-???-???-???-? ??-???- JV- CRL cons istent with LMP. desires NIPT. not w (more content not included)... Normal [facility] Chlamydia/GC DORIS aptimaon CHLAMY,NUC ACID Negative Normal Negative [facility] Comment on above: Performed By: #### L 7000.1800, M100.2200 #### [facility] [address] [place], [address] GC BY NUC ACID Negative Normal Negative [facility] Comment on above: Result Comment: Perf ormed at: =G - [facility] [address], [place] [id number] Composite Bond Technician: Amira Blackwood MD, Phone: [phone] Performed By: #### L 7000.1800, M100.2200 #### [facility] [address] [place], [address] Urine Cultureon 06-26-2025 URC Mixed Gram Pos Gram Neg Org [place] Count 25,000-50,000 MIXC Mixed contaminants. Submit a new specimen if indicated. Normal [facility] Comment on above: Performed By: #### L 7000.1800, M100.2200 #### [facility] [address] [place], [address] Absolute lymphocyte countOrd ered By: Yumiko Mcpherson on 06-25-2025 Lymphocytes Auto (Unsp spec) [#/Vol] 1.90 10*3/uL 0.83-4.51 [facility] Absolute neutrophil countOrd ered By: Yumiko Mcpherson on 06-25-2025 Neutrophils (Bld) [#/Vol] 4.4 10*3/uL 2.0-7.7 [facility] Automated lymphocyte count a s percentage of total leukocytesOrdered By: Yumiko Mcpherson on 06-25-2025 Lymphocytes/100 WBC Auto (Unsp spec) 27.8 % 19-41 [facility] Basophil percentageOrdered B y: Yumiko Mcpherson on 06-25-2025 Basophils/100 WBC (Bld) 0.7 % 0-1 [facility] CBC W/Diff, Automatedon 06-08 Absolute Lymph 1.90 X10 3/uL Normal 0.83-4.51 [facility] Comment on above: Performed By: #### L 501.9985, L509.8002, L3890.6102, L900.0098, L3890.6301, BTS, L509.4006, L100.0100, L3890.6006 #### [facility] [address] [place], [address] Absolute Neut 4.4 X10 3/uL Normal 2.0-7.7 [facility] Comment on above: Performed By: #### L 501.9985, L509.8002, L3890.6102, L900.0098, L3890.6301, BTS, L509.4006, L100.0100, L3890.6006 #### [facility] [address] [place], [address] Basophils/100 WBC (Bld) 0.7 % Normal 0-1 [facility] Comment on above: Performed By: #### L 501.9985, L509.8002, L3890.6102, L900.0098, L3890.6301, BTS, L509.4006, L100.0100, L3890.6006 #### [facility] [address] [place], [address] Eosinophils/100 WBC (Bld) 2.5 % Normal 0-5 [facility] Comment on above: Performed By: #### L 501.9985, L509.8002, L3890.6102, L900.0098, L3890.6301, BTS, L509.4006, L100.0100, L3890.6006 #### [facility] [address] [place], [place], [id number] Erythrocyte distribution width (RBC) [Ratio] 12.0 % Normal 11.6-14.6 [facility] Comment on above: Performed By: #### L 501.9985, L509.8002, L3890.6102, L900.0098, L3890.6301, BTS, L509.4006, L100.0100, L3890.6006 #### [facility] [address] [place], [place], [id number] Hematocrit (Bld) [Volume fraction] 38.3 % Normal 37-47 [facility] Comment on above: Performed By: #### L 501.9985, L509.8002, L3890.6102, L900.0098, L3890.6301, BTS, L509.4006, L100.0100, L3890.6006 #### [facility] [address] [place], [address] Hemoglobin (Bld) [Mass/Vol] 13.1 g/dL Normal 12.0-15.0 [facility] Comment on above: Performed By: #### L 501.9985, L509.8002, L3890.6102, L900.0098, L3890.6301, BTS, L509.4006, L100.0100, L3890.6006 #### [facility] [address] [place], [place], [id number] IG% 0.300 Normal 0.0-0.9 [facility] Comment on above: Result Comment: IG% - Immature Granulocytes (promyelocytes, myelocytes and metamyelocytes) > 1% indicates that a LEFT SHIFT is Present. Performed By: #### L 501.9985, L509.8002, L3890.6102, L900.0098, L3890.6301, BTS, L509.4006, L100.0100, L3890.6006 #### [facility] [address] [place], [address] Lymphocytes/100 WBC (Bld) 27.8 % Normal 19-41 [facility] Comment on above: Performed By: #### L 501.9985, L509.8002, L3890.6102, L900.0098, L3890.6301, BTS, L509.4006, L100.0100, L3890.6006 #### [facility] [address] [place], [address] MCH (RBC) [Entitic mass] 30.3 pg Normal 27.0-32.0 [facility] Comment on above: Performed By: #### L 501.9985, L509.8002, L3890.6102, L900.0098, L3890.6301, BTS, L509.4006, L100.0100, L3890.6006 #### [facility] [address] [place], [address] MCHC (RBC) [Mass/Vol] 34.2 g/dL Normal 32-36 [facility] Comment on above: Performed By: #### L 501.9985, L509.8002, L3890.6102, L900.0098, L3890.6301, BTS, L509.4006, L100.0100, L3890.6006 #### [facility] [address] [place], [address] MCV (RBC) [Entitic vol] 88.7 fL Normal 81-99 [facility] Comment on above: Performed By: #### L 501.9985, L509.8002, L3890.6102, L900.0098, L3890.6301, BTS, L509.4006, L100.0100, L3890.6006 #### [facility] [address] [place], [address] Monocytes/100 WBC (Bld) 5.1 % Normal 0-10 [facility] Comment on above: Performed By: #### L 501.9985, L509.8002, L3890.6102, L900.0098, L3890.6301, BTS, L509.4006, L100.0100, L3890.6006 #### [facility] [address] [place], [address] Neutrophils/100 WBC (Bld) 63.6 % Normal 47-70 [facility] Comment on above: Performed By: #### L 501.9985, L509.8002, L3890.6102, L900.0098, L3890.6301, BTS, L509.4006, L100.0100, L3890.6006 #### [facility] [address] [place], [address] Nucleated RBC (Bld) [#/Vol] 0 10*3/uL Normal 0-5 [facility] Comment on above: Performed By: #### L 501.9985, L509.8002, L3890.6102, L900.0098, L3890.6301, BTS, L509.4006, L100.0100, L3890.6006 #### [facility] [address] [place], [address] Platelet mean volume (Bld) [Entitic vol] 11.0 fL Normal 6.2-12.0 [facility] Comment on above: Performed By: #### L 501.9985, L509.8002, L3890.6102, L900.0098, L3890.6301, BTS, L509.4006, L100.0100, L3890.6006 #### [facility] [address] [place], [address] Platelets (Bld) [#/Vol] 196 10*3/uL Normal 150-450 [facility] Comment on above: Performed By: #### L 501.9985, L509.8002, L3890.6102, L900.0098, L3890.6301, BTS, L509.4006, L100.0100, L3890.6006 #### [facility] [address] [place], [address] RBC (Bld) [#/Vol] 4.32 10*6/uL Normal 4.2-5.4 [facility] Comment on above: Performed By: #### L 501.9985, L509.8002, L3890.6102, L900.0098, L3890.6301, BTS, L509.4006, L100.0100, L3890.6006 #### [facility] [address] [place], [address] RDW SD 39.1 fl Normal 35.1-43.9 [facility] Comment on above: Performed By: #### L 501.9985, L509.8002, L3890.6102, L900.0098, L3890.6301, BTS, L509.4006, L100.0100, L3890.6006 #### [facility] [address] [place], [address] WBC (Bld) [#/Vol] 6.8 10*3/uL Normal 4.4-11.0 [facility] Comment on above: Performed By: #### L 501.9985, L509.8002, L3890.6102, L900.0098, L3890.6301, BTS, L509.4006, L100.0100, L3890.6006 #### [facility] [address] [place], [address] Chlamydia trachomatis rRNA d etection by probe and target amplification methodOrdered By: Yumiko Mcpherson on 06-25-2025 C. trachomatis rRNA DORIS+probe Ql (Unsp spec) Negative Negative [facility] Eosinophil percentageOrdered By: Yumiko Mcpherson on 06-25-2025 Eosinophils/100 WBC (Bld) 2.5 % 0-5 [facility] Erythrocyte distribution wid th ratioOrdered By: Yumiko Mcpherson on 06-25-2025 Erythrocyte distribution width (RBC) [Ratio] 12.0 % 11.6-14.6 [facility] Erythrocyte distribution wid th standard deviationOrdered By: Yumiko Mcpherson on 06-25-2025 Erythrocyte distribution width (RBC) [Ratio] 39.1 fl 35.1-43.9 [facility] HIVon 06-25-2025 HIV Non-Reactive Normal Nonreactive [facility] Comment on above: Result Comment: Non- Reactive Reactive Repeatedly reactive samples must be confirmed according to CDC recommended confirmatory algorithms. The subresults for either HIVAG or AHIV can be used as an aid in the selection of the confirmation algorithm for reactive samples. Send out specimens with Reactive results to [facility] for confirmation. Order the HIV antibody detection and differentiation: #[id number] Performed By: #### L 501.9985, L509.8002, L3890.6102, L900.0098, L3890.6301, BTS, L509.4006, L100.0100, L3890.6006 #### [facility] [address] [facility] [place], [place], [address] Hematocrit Auto (Bld) [Volum e fraction]Ordered By: Yumiko Mcpherson on 06-25-2025 Hematocrit (Bld) [Volume fraction] 38.3 % 37-47 [facility] Hemoglobin A1con 06-25-2025 HbA1c (Bld) [Mass fraction] 5.0 % Normal <=5.6 [facility] Comment on above: Result Comment: Norm al < 5.7 % Prediabetic 5.7 - 6.4 % Diabetic >or= 6.5 % Please note range changes. Performed By: #### L 501.9985, L509.8002, L3890.6102, L900.0098, L3890.6301, BTS, L509.4006, L100.0100, L3890.6006 ####[facility] [id number] [place], [place], [id number] Hemoglobin A1c percentageOrd ered By: Yumiko Mcpherson on 06-25-2025 HbA1c (Bld) [Mass fraction] 5.0 % <5.7 [facility] Comment on above: Normal < 5.7 % Predi abetic 5.7 - 6.4 % Diabetic >or= 6.5 % Please note range changes. Hemoglobin measurementOrdere d By: Yumiko Mcpherson on 06-25-2025 Hemoglobin (Bld) [Mass/Vol] 13.1 g/dL 12.0-15.0 [facility] Hepatitis C Antibodyon 06-25 Hepatitis C Ab Non-Reactive Normal Nonreactive [facility] Comment on above: Result Comment: Reac tive: Presumptive evidence of antibodies to HCV. Follow CDC recommendations for supplemental testing. Non-Reactive: Antibodies to HCV were not detected; does not exclude the possibility of exposure to HCV Reactive Results are presumptive evidence of antibodies to HCV. Follow CDC recommendations for supplemental testing. Order confirmation testing: HCV Quant by PCR testing - HCVPCR #[id number] Non Reactive: < 0.8 Equivocal: >/= 0.8 to < 1.0 Reactive: >/= 1.0 The CDC requires that a reactive/equivocal HCV antibody result be sent out for confirmation. HCV Quant by PCR testing. Performed By: #### L 501.9985, L509.8002, L3890.6102, L900.0098, L3890.6301, BTS, L509.4006, L100.0100, L3890.6006 ####[facility] [id number] [place], [address] Immature granulocytes/100 WB C Auto (Bld)Ordered By: Yumiko Ky on 06-25-2025 Immature granulocytes/100 WBC (Bld) 0.300 % 0.0-0.9 [facility] Comment on above: IG% - Immature Granu locytes (promyelocytes, myelocytes and metamyelocytes) > 1% indicates that a LEFT SHIFT is Present. L3890.6102on 06-25-2025 HEP B Surf Ag Non-Reactive Normal Nonreactive [facility] Comment on above: Result Comment: Reac tive: Presumptive evidence of HBV. Repeatedly reactive samples must be confirmed using a neutralization test ([employer] HBsAg Confirmatory Test) Non-Reactive: HBsAg not detected; does not exclude the possibility of exposure to HBV Performed By: #### L 501.9985, L509.8002, L3890.6102, L900.0098, L3890.6301, BTS, L509.4006, L100.0100, L3890.6006 ####[facility] [id number] [facility] [place], [place], [address] L509.4006on 06-25-2025 Rubella IgG REAC Normal Nonreactive [facility] Comment on above: Result Comment: Anti body Result: Interpretation Non-Reactive: Non-Immune Reactive: Immune The following results were obtained with the [employer] Rubella IgG assay. Results from assays of other manufacturers cannot be used interchangeably. Performed By: #### L 501.9985, L509.8002, L3890.6102, L900.0098, L3890.6301, BTS, L509.4006, L100.0100, L3890.6006 #### [facility] [address] [facility] [place], [place], [id number] Laboratory - Microbiology an d Antimicrobial susceptibilityOrdered By: Yumiko Mcpherson on 06-25-2025 HBV surface Ag Ql (S) Non-Reactive Nonreactive [facility] Comment on above: Reactive: Presumptiv e evidence of HBV. Repeatedly reactive samples must be confirmed using a neutralization test ([employer] HBsAg Confirmatory Test)Non-Reactive: HBsAg not detected; does not exclude the possibility of exposure to HBV MCV (mean corpuscular volume ) determinationOrdered By: Yumiko Mcpherson on 06-25-2025 MCV (RBC) [Entitic vol] 88.7 fL 81-99 [facility] Mean corpuscular hemoglobin (MCH) determinationOrdered By: Yumiko Mcpherson on 06-25-2025 MCH (RBC) [Entitic mass] 30.3 pg 27.0-32.0 [facility] Mean corpuscular hemoglobin concentration (MCHC) determinationOrdered By: Yumiko Mcpherson on 06-25-2025 MCHC (RBC) [Mass/Vol] 34.2 g/dL 32-36 [facility] Mean platelet volume determi nationOrdered By: Yumiko Mcpherson on 06-25-2025 Platelet mean volume (Bld) [Entitic vol] 11.0 fL 6.2-12.0 [facility] Monocyte percentageOrdered B y: Yumiko Mcpherson on 06-25-2025 Monocytes/100 WBC (Bld) 5.1 % 0-10 [facility] NATERAon 06-25-2025 NATURA SEE SCANNED REPORT Normal [facility] Comment on above: Order Comment: Comme nts: NIPT with Gender Performed By: #### L 501.9985, L509.8002, L3890.6102, L900.0098, L3890.6301, BTS, L509.4006, L100.0100, L3890.6006 #### [facility] [address] [place] [address], [id number] Neisseria gonorrhoeae nuclei c acid detection by amplified probe techniqueOrdered By: Yumiko Mcpherson on 06-25-2025 N. gonorrhoeae DNA DORIS+probe Ql (Unsp spec) Negative Negative [facility] Comment on above: Performed at: =[address] [id number] Director: Amira Blackwood MD, Phone: [phone] Neutrophil percentageOrdered By: Yumiko Mcpherson on 06-25-2025 Neutrophils/100 WBC (Bld) 63.6 % 47-70 [facility] No Panel InformationOrdered By: Yumiko Mcpherson on 06-25-2025 HIV (1&2) Antibody Non-Reactive Nonreactive [facility] Comment on above: Non-ReactiveReactive Repeatedly reactive samples must be confirmed according to CDC recommended confirmatory algorithms. The subresults for either HIVAG or AHIV can be used as an aid in the selection of the confirmation algorithm for reactive samples.Send out specimens with Reactive results to [facility] for confirmation.Order the HIV antibody detection and differentiation: #[id number] Nucleated red blood cell per centageOrdered By: Yumiko Mcpherson on 06-25-2025 Nucleated RBC/100 WBC (Bld) [Ratio] 0 % 0-5 [facility] Office Visit Reporton 06-25-2025 [facility] Office Visit Report [facility] [address], [address] [place] [address] OFFICE VISIT Date of Service: 06/25/25 MR#: [id number] Acct: [id number] Name: NORY BUI Rep #: [id number] : 1995 Provider: Dr. 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 Is patient in pain?: No Allergies No Known Allergies Allergy (Verified 06/25/25 08:31) Medications ???Medication ???Instructions ???Recorded ???Confirmed ???Type docosahexaenoic acid 200 mg mg PO 05/31/25 06/25/25 History capsule ( DHA) vitamins no.163-iron tab PO DAILY 05/31/25 06/25/25 His tory bis-gly 20 mg-folate no.10 1 mg tablet (PNV Tabs 20-1) pyridoxine (vitamin B6) 25 mg 25 mg PO TID 05/31/25 06/25/25 His tory tablet Last Menstrual Period: 04/14/25 Zika: Zika virus screening: Negative : No PFSH PFSH Medical History Vaginal delivery Successful external cephalic version Anemia affecting Polyhydramnios Gestational diabetes Asthma Family History Grandmother Cancer Breast cancer, and anal cancer Rectal cancer, Onset Age: 79 maternal Breast cancer, Onset Age: 65 Maternal Grandfather Cancer, Onset Age: 50 Maternal- testicular Uncle Cancer, Onset Age: 16 Maternal Brain cancer at 32yo Father Diabetes Social History adopted: No household members: spouse and children housing: house number of children: 1 current occupational status: unemployed current occupation: [employer] current occupational exposures/hazards: No pets and animals: Yes pets and animals: dog(s) history of recent travel: No sexually active: Yes Smoking Status: Never smoker alcohol intake: current alcohol intake frequency: holidays/special occasions only details: NOT WHILE substance use type: does not use well-balanced diet: daily or most days caffeine: Yes Type: coffee Number of servings: 1 eating out: 1-3 times/week during the past year weight has: remained stable what type of physical activity do you participate in: walking frequency: daily duration: 15-30 minutes/day miguel/latter day: Hindu seatbelt use: always do you feel safe at home: Yes additional social history: - Siva History 2 Elective abortions Hx Para 1 Spontaneous abortions Hx # Term Pregnancies Ectopic pregnancies Hx # Pregnancies Multiple births # of living children 1 Past Pregnancies Del. Date Name GA/Weeks Outcome Route Bth Weight Infant Gen Labor Lgth Anesthesia Del Locatn Provider FOB 02/18/24 Idalina 40 live - full term 6# Female epidural [facility] Delivery Date: 02/18/24 Last Updated by: Lizabeth Vega SM- 40 IOL poly GDM HPI *EST* NOB LMP 04/14, RAMÓN 01/19 Details: NORY BUI is a 29 year old who presents for New OB visit. OB Visit RAMÓN Calculator Estimated Delivery Date Method Current WG Current Estimate 01/19/26 LMP (Certain) 10w 2d Other Estimates 01/19/26 Ultrasound #1 10w 2d Estimated Due Date: 01/19/26 Expected Delivery Route/Plan Labor Preferences- CB/BF classes: [] labor support person: [] labor intervention preferences: [] pain management options preferred: [] cut cord/dad catch: [] : [] PP control planned: [] discussed possible routes of delivery and associated risks: [] special requests: [] Specific Issue/Plans Covid status: [] Flu vaccine: [] Tdap vaccine: [] Rhogam: [] LARC form signed: [] Problem list reviewed and updated with the most current plan of care details and appropriate orders placed. Relevant counseling for the gestational age provided. Continue routine care and follow up unless otherwise noted in visit notes/problem list details Initial Weight: Not Recorded Date -???-???-???-???-???- ???-???-???-???-???-? ??-???- EGA Weight BP Urine Prot -???-???-???-???-???- ???-???-???-???-???-? ??-???- Glucose FHR FuHt Pres Dilation -???-???-???-???-???- ???-???-???-???-???-? ??-???- Effaced St Visit Note 06/25/25 -???-???-???-???-???- ???-???-???-???-???-? ??-???- 10w 2d 140 lb 5 oz 114/76 -???-???-???-???-???- ???-???-???-???-???-? ??-???- 168 -???-???-???-???-???- ???-???-???-???-???-? ??-???- JV- CRL cons istent with LMP. desires NIPT. 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 Normal [facility] Platelet countOrdered By: Trina Mcpherson on 06-25-2025 Platelets (Bld) [#/Vol] 196 10*3/uL 150-450 [facility] RBC Auto (Bld) [#/Vol]Ordere d By: Yumiko Mcpherson on 06-25-2025 RBC (Bld) [#/Vol] 4.32 10*6/uL 4.2-5.4 [facility] Syphilis Antibodieson 2024 Syphilis Abs Non-Reactive Normal Nonreactive [facility] Comment on above: Performed By: #### L 501.9985, L509.8002, L3890.6102, L900.0098, L3890.6301, BTS, L509.4006, L100.0100, L3890.6006 #### [facility] [address] [place], [address] Type AND Screenon 06-25-2025 Ab SCREEN GEL Negative Normal [facility] Comment on above: Order Comment: PN Performed By: #### L 501.9985, L509.8002, L3890.6102, L900.0098, L3890.6301, BTS, L509.4006, L100.0100, L3890.6006 ####[facility] [address] [place], [place], [id number] Urine cultureOrdered By: Salud Mcpherson on 06-25-2025 Bacteria identified Cx Nom (U) Mixed Gram Pos & Gram Neg Org Abnormal [facility] White blood cell (WBC) count Ordered By: Yumiko Mcpherson on 06-25-2025 WBC (Bld) [#/Vol] 6.8 10*3/uL 4.4-11.0 [facility] CNTHERAPYon 03-30-2024 CNTHERAPY OT/PT/Speech Visit (AKPTB) NORY BUI ([id number]) 1995 F Date Time Provider Department 03/30/24 2:45 PM SAKINA QUINTERO AKPTB Date Time Provider Department Center 03/30/2024 2:45 PM [id number] QUINTERO AKPTB [facility] Reason for Visit: PT Eval [747] Primary Visit Diagnosis:Muscle weakness [M62.81] Allergies As of Date: 03/30/2024 (No Known Allergies) Date Reviewed: 06/23/2018 Reviewed by: Estelle Mackay - Fully Assessed Prescriptions as of 03/30/2024 - Etonogestrel-Ethinyl Estradiol (NUVARING) 0.12-0.015 mg/24 hr vaginal ring Use 1 Each vaginally as directed. Insert vaginally x 24 d then remove x 4 d for monthly period For no period change the same date monthly - etonogestrel (NEXPLANON) subdermal implant 68 mg 68 mg by SUBDERMAL route. Placed 04/15/2017. - ethinyl estradiol/drospirenon e (BELIA, 28, ORAL) Take by mouth. Teamsite Developer: Therapy (PT/OT/Speech/Resp) ID: [id number] 03/30/2024 3:26 PM Author: SAKINA QUINTERO Signed by SAKINA QUINTERO PT on 03/30/2024 at 3:26 PM Document text: Program_ID:[id number] Access Code: [email or web address] URL: [email or web address]/ Date: 03-30-2024 Prepared By: Sakina Quintero Program Notes Exercises - Supine Transversus Abdominis Bracing - Hands on Stomach - 1 x daily - 7 x weekly - 1 sets - 10 reps Patient Education - Get To Know Your Pelvic Floor- Female - cc Pelvic Floor Kegels - cc Pelvic Floor - Diaphragmatic Breathing ----- Letter Text Normal [facility] THERAPY NTon 03-30-2024 THERAPY NT HNO ID: [id number] Author: SAKINA QUINTERO PT Service: ? Author Type: Physical Therapist Type: Therapy (PT/OT/Speech/Resp) Filed: 03/30/2024 15:26 Note Text: Program_ID:[id number] Access Code: [email or web address] URL: [email or web address]/ Date: 03-30-2024 Prepared By: Sakina Quintero Program Notes Exercises - Supine Transversus Abdominis Bracing - Hands on Stomach - 1 x daily - 7 x weekly - 1 sets - 10 reps Patient Education - Get To Know Your Pelvic Floor- Female - cc Pelvic Floor Kegels - cc Pelvic Floor - Diaphragmatic Breathing Normal [facility] Thin prep Papanicolaou smear with manual screeningOrdered By: Lori Schneider on 02-19-2024 Thin prep Papanicolaou smear with manual screening 70 mg/dL 74-106 [facility] Comment on above: MANAGEMENT OF PATIEN T CARE PER NURSING PROTOCOL Absolute lymphocyte countOrd ered By: Lori Schneider on 02-17-2024 Lymphocytes Auto (Unsp spec) [#/Vol] 1.90 10*3/uL 0.83-4.51 [facility] Automated lymphocyte count a s percentage of total leukocytesOrdered By: Lori Schneider on 02-17-2024 Lymphocytes/100 WBC Auto (Unsp spec) 17.5 % 19-41 [facility] Basophil percentageOrdered B y: Lori Schneider on 02-17-2024 Basophils/100 WBC (Bld) 0.5 % 0-1 [facility] Eosinophils/100 WBC (Bld) 1.9 % 0-5 [facility] Hemoglobin (Bld) [Mass/Vol] 11.3 g/dL 12.0-15.0 [facility] Monocytes/100 WBC (Bld) 5.5 % 0-10 [facility] Neutrophils (Bld) [#/Vol] 8.1 10*3/uL 2.0-7.7 [facility] Neutrophils/100 WBC (Bld) 74.2 % 47-70 [facility] WBC (Bld) [#/Vol] 10.9 10*3/uL 4.4-11.0 [facility] Determination of erythrocyte mean corpuscular volume (MCV)Ordered By: Lori Schneider on 02-17-2024 MCV (RBC) [Entitic vol] 87.4 fL 81-99 [facility] Erythrocyte distribution wid th ratioOrdered By: Lori Schneider on 02-17-2024 Erythrocyte distribution width (RBC) [Ratio] 14.2 % 11.6-14.6 [facility] Erythrocyte distribution wid th standard deviationOrdered By: Lori Schneider on 02-17-2024 Erythrocyte distribution width (RBC) [Entitic vol] 45.0 fL 35.1-43.9 [facility] Hematocrit Auto (Bld) [Volum e fraction]Ordered By: Lori Schneider on 02-17-2024 Hematocrit (Bld) [Volume fraction] 33.9 % 37-47 [facility] Immature granulocytes/100 WB C Auto (Bld)Ordered By: Lori Schneider on 02-17-2024 Immature granulocytes/100 WBC (Bld) 0.400 % 0.0-0.9 [facility] Comment on above: IG% - Immature Granu locytes (promyelocytes, myelocytes and metamyelocytes) > 1% indicates that a LEFT SHIFT is Present. Laboratory - Hematology and Cell countsOrdered By: Lori Schneider on 02-17-2024 MCH (RBC) [Entitic mass] 29.1 pg 27.0-32.0 [facility] MCHC (RBC) [Mass/Vol] 33.3 g/dL 32-36 [facility] Nucleated RBC/100 WBC (Bld) [Ratio] 0 % 0-5 [facility] Platelet mean volume (Bld) [Entitic vol] 11.0 fL 6.2-12.0 [facility] Platelets (Bld) [#/Vol] 196 10*3/uL 150-450 [facility] RBC Auto (Bld) [#/Vol]Ordere d By: Lori Schneider on 02-17-2024 RBC (Bld) [#/Vol] 3.88 10*6/uL 4.2-5.4 [facility] Serum Treponema species anti body detectionOrdered By: Lori Schneider on 02-17-2024 Treponema sp Ab Ql (S) Non-Reactive [facility] CNTHERAPYon 02-15-2024 CNTHERAPY OT/PT/Speech Visit (AKPTB) NORY BUI ([id number]) 1995 F Date Time Provider Department 02/15/24 8:15 AM SAKINA QUINTERO Date Time Provider Department [place] 02/15/2024 8:15 AM [id number] QUINTERO [facility] Reason for Visit: Physical Therapy [503] Primary Visit Diagnosis:Pelvic floor dysfunction [M62.89] Allergies As of Date: 02/15/2024 (No Known Allergies) Date Reviewed: 06/23/2018 Reviewed by: Estelle Mackay - Fully Assessed Prescriptions as of 02/15/2024 - Etonogestrel-Ethinyl Estradiol (NUVARING) 0.12-0.015 mg/24 hr vaginal ring Use 1 Each vaginally as directed. Insert vaginally x 24 d then remove x 4 d for monthly period For no period change the same date monthly - etonogestrel (NEXPLANON) subdermal implant 68 mg 68 mg by SUBDERMAL route. Placed 04/15/2017. - ethinyl estradiol/drospirenon e (BELIA, 28, ORAL) Take by mouth. Normal [facility] Derrek 02-02-2024 CNPN Telephone (AKPTB) NORY BUI ([id number]) 1995 F Date Time Provider Department 02/02/24 SAKINA QUINTERO During your visit today, we recorded the following information about you: Sakina Quintero, PT 02/02/2024 3:57 PM Signed Patient called around 1:30pm requesting call back. PT called patient back. Patient stated baby is now breech, believes baby flipped sometime yesterday at work -reports she had a more demanding patient and did a lot more lifting/physical activity. Tomorrow is going to doctor to have them manually flip baby (aversion) if possible. Asking if there is anything she can do to try to get baby to flip on her own. PT recommended increasing holds and reps for hip flexor stretch, piriformis stretch, side-lying release, cat cow, and DB and lengthen. Also discussed trial of curb walking. Allergies As of Date: 02/02/2024 (No Known Allergies) Date Reviewed: 06/23/2018 Reviewed by: Estelle Mackay - Fully Assessed Reason for Visit: Patient Question [1141] Prescriptions as of 02/02/2024 - Etonogestrel-Ethinyl Estradiol (NUVARING) 0.12-0.015 mg/24 hr vaginal ring Use 1 Each vaginally as directed. Insert vaginally x 24 d then remove x 4 d for monthly period For no period change the same date monthly - etonogestrel (NEXPLANON) subdermal implant 68 mg 68 mg by SUBDERMAL route. Placed 04/15/2017. - ethinyl estradiol/drospirenon e (BELIA, Fredi, ORAL) Take by mouth. Problem List As Of Date: 02/02/2024 (None) Encounter Status:Closed by SAKINA QUINTERO on 02/02/24 Normal [facility] Laboratory - Chemistry and C hemistry - challengeon 02-02-2024 Glucose Ql (U) Negative [facility] Laboratory - Urinalysison Protein Ql (U) Negative [facility] CNTHERAPYon 01-31-2024 CNTHERAPY OT/PT/Speech Visit (AKPTB) NORY BUI ([id number]) 1995 F Date Time Provider Department 01/31/24 11:30 AM SAKINA QUINTERO Date Time Provider Department Center 01/31/2024 11:30 AM [id number] QUINTERO AKPTB [facility] Reason for Visit: Physical Therapy [503] Primary Visit Diagnosis:Pelvic floor dysfunction [M62.89] Allergies As of Date: 01/31/2024 (No Known Allergies) Date Reviewed: 06/23/2018 Reviewed by: Estelle Mackay - Fully Assessed Prescriptions as of 01/31/2024 - Etonogestrel-Ethinyl Estradiol (NUVARING) 0.12-0.015 mg/24 hr vaginal ring Use 1 Each vaginally as directed. Insert vaginally x 24 d then remove x 4 d for monthly period For no period change the same date monthly - etonogestrel (NEXPLANON) subdermal implant 68 mg 68 mg by SUBDERMAL route. Placed 04/15/2017. - ethinyl estradiol/drospirenon e (BELIA, 28, ORAL) Take by mouth. Normal [facility] Laboratory - Chemistry and C hemistry - challengeon 01-27-2024 Glucose Ql (U) Negative [facility] Laboratory - Urinalysison Protein Ql (U) Negative [facility] No Panel InformationOrdered By: Jelena Fragoso on 01-27-2024 Group B Streptococcus Culture Group B Beta Streptococcus is not isolated. [facility] CNTHERAPYon 01-18-2024 CNTHERAPY OT/PT/Speech Visit (AKPTB) NORY BUI ([id number]) 1995 F Date Time Provider Department 01/18/24 1:00 PM SAKINA QUINTERO Date Time Provider Department Center 01/18/2024 1:00 PM [id number] QUINTERO [facility] Reason for Visit: Physical Therapy [503] Primary Visit Diagnosis:Pelvic floor dysfunction [M62.89] Allergies As of Date: 01/18/2024 (No Known Allergies) Date Reviewed: 06/23/2018 Reviewed by: Estelle Mackay - Fully Assessed Prescriptions as of 01/18/2024 - Etonogestrel-Ethinyl Estradiol (NUVARING) 0.12-0.015 mg/24 hr vaginal ring Use 1 Each vaginally as directed. Insert vaginally x 24 d then remove x 4 d for monthly period For no period change the same date monthly - etonogestrel (NEXPLANON) subdermal implant 68 mg 68 mg by SUBDERMAL route. Placed 04/15/2017. - ethinyl estradiol/drospirenon e (BELIA, 28, ORAL) Take by mouth. Normal [facility] Laboratory - Chemistry and C hemistry - challengeon 01-12-2024 Glucose Ql (U) Negative [facility] Laboratory - Urinalysison Protein Ql (U) Trace [facility] CNTHERAPYon 01-11-2024 CNTHERAPY OT/PT/Speech Visit (AKPTB) NORY BUI ([id number]) 1995 F Date Time Provider Department 01/11/24 12:15 PM SAKINA QUINTERO Date Time Provider Department Center 01/11/2024 12:15 PM [id number] QUINTERO [facility] Reason for Visit: Physical Therapy [503] Primary Visit Diagnosis:Pelvic floor dysfunction [M62.89] Allergies As of Date: 01/11/2024 (No Known Allergies) Date Reviewed: 06/23/2018 Reviewed by: Estelle Mackay - Fully Assessed Prescriptions as of 01/11/2024 - Etonogestrel-Ethinyl Estradiol (NUVARING) 0.12-0.015 mg/24 hr vaginal ring Use 1 Each vaginally as directed. Insert vaginally x 24 d then remove x 4 d for monthly period For no period change the same date monthly - etonogestrel (NEXPLANON) subdermal implant 68 mg 68 mg by SUBDERMAL route. Placed 04/15/2017. - ethinyl estradiol/drospirenon e (BELIA, 28, ORAL) Take by mouth. Normal [facility] Absolute lymphocyte countOrd ered By: Laine Serrano on 01-03-2024 Lymphocytes Auto (Unsp spec) [#/Vol] 1.45 10*3/uL 0.83-4.51 [facility] Automated lymphocyte count a s percentage of total leukocytesOrdered By: Laine Serrano on 01-03-2024 Lymphocytes/100 WBC Auto (Unsp spec) 23.5 % 19-41 [facility] Basophil percentageOrdered B y: Laine Serrano on 01-03-2024 Basophils/100 WBC (Bld) 0.3 % 0-1 [facility] Eosinophils/100 WBC (Bld) 1.9 % 0-5 [facility] Hemoglobin (Bld) [Mass/Vol] 11.8 g/dL 12.0-15.0 [facility] Monocytes/100 WBC (Bld) 5.3 % 0-10 [facility] Neutrophils (Bld) [#/Vol] 4.2 10*3/uL 2.0-7.7 [facility] Neutrophils/100 WBC (Bld) 68.4 % 47-70 [facility] WBC (Bld) [#/Vol] 6.2 10*3/uL 4.4-11.0 [facility] CNTHERAPYon 01-03-2024 CNTHERAPY OT/PT/Speech Visit (AKPTB) NORY BUI ([id number]) 1995 F Date Time Provider Department 01/03/24 2:45 PM SAKINA QUINTERO Date Time Provider Department Center 01/03/2024 2:45 PM [id number] QUINTEROA AKPTB [facility] Reason for Visit: PT Eval [747] Primary Visit Diagnosis:Pelvic floor dysfunction [M62.89] Allergies As of Date: 01/03/2024 (No Known Allergies) Date Reviewed: 06/23/2018 Reviewed by: Estelle Mackay - Fully Assessed Prescriptions as of 01/03/2024 - Etonogestrel-Ethinyl Estradiol (NUVARING) 0.12-0.015 mg/24 hr vaginal ring Use 1 Each vaginally as directed. Insert vaginally x 24 d then remove x 4 d for monthly period For no period change the same date monthly - etonogestrel (NEXPLANON) subdermal implant 68 mg 68 mg by SUBDERMAL route. Placed 04/15/2017. - ethinyl estradiol/drospirenon e (BELIA, 28, ORAL) Take by mouth. Letter Text Normal [facility] Determination of erythrocyte mean corpuscular volume (MCV)Ordered By: Laine Serrano on 01-03-2024 MCV (RBC) [Entitic vol] 89.6 fL 81-99 [facility] Erythrocyte distribution wid th ratioOrdered By: Laine Serrano on 01-03-2024 Erythrocyte distribution width (RBC) [Ratio] 13.6 % 11.6-14.6 [facility] Erythrocyte distribution wid th standard deviationOrdered By: Laine Serrano on 01-03-2024 Erythrocyte distribution width (RBC) [Entitic vol] 44.5 fL 35.1-43.9 [facility] Hematocrit Auto (Bld) [Volum e fraction]Ordered By: Laine Serrano on 01-03-2024 Hematocrit (Bld) [Volume fraction] 35.5 % 37-47 [facility] Immature granulocytes/100 WB C Auto (Bld)Ordered By: Laine Serrano on 01-03-2024 Immature granulocytes/100 WBC (Bld) 0.600 % 0.0-0.9 [facility] Comment on above: IG% - Immature Granu locytes (promyelocytes, myelocytes and metamyelocytes) > 1% indicates that a LEFT SHIFT is Present. Laboratory - Chemistry and C hemistry - challengeon 01-03-2024 Glucose Ql (U) Negative [facility] Laboratory - Hematology and Cell countsOrdered By: Laine Serrano on 01-03-2024 MCH (RBC) [Entitic mass] 29.8 pg 27.0-32.0 [facility] MCHC (RBC) [Mass/Vol] 33.2 g/dL 32-36 [facility] Nucleated RBC/100 WBC (Bld) [Ratio] 0 % 0-5 [facility] Platelet mean volume (Bld) [Entitic vol] 10.0 fL 6.2-12.0 [facility] Platelets (Bld) [#/Vol] 165 10*3/uL 150-450 [facility] Laboratory - Urinalysison Protein Ql (U) Negative [facility] RBC Auto (Bld) [#/Vol]Ordere d By: Laine Serrano on 01-03-2024 RBC (Bld) [#/Vol] 3.96 10*6/uL 4.2-5.4 [facility] Laboratory - Chemistry and C hemistry - challengeon 12-16-2023 Glucose Ql (U) Negative [facility] Laboratory - Urinalysison Protein Ql (U) Negative [facility] Quantitative serum or plasma 3 hour gestational glucose tolerance panelOrdered By: Yumiko Mcpherson on 12-07-2023 Glucose tolerance 3 hours gestational panel See comment [facility] Comment on above: FASTING 74 Col: 11/10 [id number] TOLERANCE TEST FOR Reference Interval GESTATIONAL DIABETES Fasting <105 mg/dL 1 hour <190 mg/dl 2 hour <165 mg/dl 3 hour <145 mg/dl 1 HR GLU 199 H Col: 12/07/23 1112 2 HR GLU 182 H Col: 12/07/23 1211 3 HR GLU 122 Col: 12/07/23 1311 Absolute lymphocyte countOrd ered By: Yumiko Mcpherson on 11-29-2023 Lymphocytes Auto (Unsp spec) [#/Vol] 1.34 10*3/uL 0.83-4.51 [facility] Automated lymphocyte count a s percentage of total leukocytesOrdered By: Yumiko Mcpherson on 11-29-2023 Lymphocytes/100 WBC Auto (Unsp spec) 16.4 % 19-41 [facility] Basophil percentageOrdered B y: Yumiko Mcpherson on 11-29-2023 Basophils/100 WBC (Bld) 0.4 % 0-1 [facility] Eosinophils/100 WBC (Bld) 3.2 % 0-5 [facility] Hemoglobin (Bld) [Mass/Vol] 10.9 g/dL 12.0-15.0 [facility] Monocytes/100 WBC (Bld) 5.0 % 0-10 [facility] Neutrophils (Bld) [#/Vol] 6.1 10*3/uL 2.0-7.7 [facility] Neutrophils/100 WBC (Bld) 74.8 % 47-70 [facility] WBC (Bld) [#/Vol] 8.2 10*3/uL 4.4-11.0 [facility] Determination of erythrocyte mean corpuscular volume (MCV)Ordered By: Yumiko Mcpherson on 11-29-2023 MCV (RBC) [Entitic vol] 89.6 fL 81-99 [facility] Erythrocyte distribution wid th ratioOrdered By: Yumkio Mcpherson on 11-29-2023 Erythrocyte distribution width (RBC) [Ratio] 12.1 % 11.6-14.6 [facility] Erythrocyte distribution wid th standard deviationOrdered By: Yumiko Mcpherson on 11-29-2023 Erythrocyte distribution width (RBC) [Entitic vol] 39.2 fL 35.1-43.9 [facility] Gestational diabetes screen 1-hour screen with 50g oral glucose loadOrdered By: Yumiko Mcpherson on 11-29-2023 Glucose 1 Hr post 50 g glucose PO [Mass/Vol] 176 mg/dL 70-140 [facility] HIV 1 and HIV-2 antibody ass ay with HIV-1 p24 antigen detectionOrdered By: Yumiko Mcpherson on 11-29-2023 HIV 1+2 Ab+HIV1 p24 Ag IA Ql Non-Reactive Nonreactive [facility] Hematocrit Auto (Bld) [Volum e fraction]Ordered By: Yumiko Mcpherson on 11-29-2023 Hematocrit (Bld) [Volume fraction] 32.7 % 37-47 [facility] Immature granulocytes/100 WB C Auto (Bld)Ordered By: Yumiko Mcpherson on 11-29-2023 Immature granulocytes/100 WBC (Bld) 0.200 % 0.0-0.9 [facility] Comment on above: IG% - Immature Granu locytes (promyelocytes, myelocytes and metamyelocytes) > 1% indicates that a LEFT SHIFT is Present. Laboratory - Hematology and Cell countsOrdered By: Yumiko Mcpherson on 11-29-2023 MCH (RBC) [Entitic mass] 29.9 pg 27.0-32.0 [facility] MCHC (RBC) [Mass/Vol] 33.3 g/dL 32-36 [facility] Nucleated RBC/100 WBC (Bld) [Ratio] 0 % 0-5 [facility] Platelets (Bld) [#/Vol] 199 10*3/uL 150-450 [facility] Platelet mean volume Rafi-Ec ker (Bld) [Entitic vol]Ordered By: Yumiko Mcpherson on 11-29-2023 Platelet mean volume (Bld) [Entitic vol] 10.0 fL 6.2-12.0 [facility] RBC Auto (Bld) [#/Vol]Ordere d By: Yumiko Mcpherson on 11-29-2023 RBC (Bld) [#/Vol] 3.65 10*6/uL 4.2-5.4 [facility] Serum Treponema species anti body detectionOrdered By: Yumiko Mcpherson on 11-29-2023 Treponema sp Ab Ql (S) Non-Reactive [facility] Laboratory - Chemistry and C hemistry - challengeon 11-05-2023 Glucose Ql (U) Negative [facility] Laboratory - Urinalysison Protein Ql (U) Negative [facility] No Panel InformationOrdered By: Jelena Fragoso on 10-05-2023 Miscellaneous Test Comment MAILED SPECIMEN [facility] Laboratory - Chemistry and C hemistry - challengeon 09-06-2023 Glucose Ql (U) Negative [facility] Laboratory - Urinalysison Protein Ql (U) Negative [facility] Absolute lymphocyte countOrd ered By: Mavis Willis on 07-14-2023 Lymphocytes Auto (Unsp spec) [#/Vol] 1.56 10*3/uL 0.83-4.51 [facility] Basophil percentageOrdered B y: Mavis Willis on 07-14-2023 Basophils/100 WBC (Bld) 0.4 % 0-1 [facility] Eosinophils/100 WBC (Bld) 1.1 % 0-5 [facility] Neutrophils (Bld) [#/Vol] 6.2 10*3/uL 2.0-7.7 [facility] Neutrophils/100 WBC (Bld) 73.1 % 47-70 [facility] WBC (Bld) [#/Vol] 8.5 10*3/uL 4.4-11.0 [facility] Blood erythrocytes count (nu mber/volume)Ordered By: Mavis Willis on 07-14-2023 RBC (Bld) [#/Vol] 4.22 10*6/uL 4.2-5.4 [facility] Blood hemoglobin measurement (mass/volume)Ordered By: Mavis Willis on 07-14-2023 Hemoglobin (Bld) [Mass/Vol] 13.0 g/dL 12.0-15.0 [facility] Blood lymphocytes/100 leukoc ytesOrdered By: Mavis Willis on 07-14-2023 Lymphocytes/100 WBC (Bld) 18.3 % 19-41 [facility] Blood monocytes/100 leukocyt esOrdered By: Mavis Willis on 07-14-2023 Monocytes/100 WBC (Bld) 6.7 % 0-10 [facility] Blood platelet mean volumeOr dered By: Mavis Willis on 07-14-2023 Platelet mean volume (Bld) [Entitic vol] 10.1 fL 6.2-12.0 [facility] Cervical or vagninal specime n microscopic examination by cytology stain (reported asOrdered By: Mavis Willis on 07-14-2023 Cytology report Cyto stain Doc (Cvx/Vag) Comment . [facility] Comment on above: The Pap smear is a s creening test designed to aid in thedetection of premalignant and malignant conditions of theuterine cervix. It is not a diagnostic procedure andshould not be used as the sole means of detecting cervicalcancer. Both false-positive and false-negative reports dooccur. Chlamydia trachomatis rRNA d etection by probe and target amplification methodOrdered By: Mavis Willis on 07-14-2023 C. trachomatis rRNA DORIS+probe Ql (Unsp spec) Negative Negative [facility] Culture, urineOrdered By: Sumanth Willis on 07-14-2023 Bacteria identified Cx Nom (U) Positive [facility] Bacteria identified Cx Nom (U) Positive [facility] Determination of erythrocyte mean corpuscular volume (MCV)Ordered By: Mavis Willis on 07-14-2023 MCV (RBC) [Entitic vol] 87.4 fL 81-99 [facility] HIV 1 and HIV-2 antibody ass ay with HIV-1 p24 antigen detectionOrdered By: Mavis Willis on 07-14-2023 HIV 1+2 Ab+HIV1 p24 Ag IA Ql Non-Reactive Nonreactive [facility] Hematocrit Auto (Bld) [Volum e fraction]Ordered By: Mavis Willis on 07-14-2023 Hematocrit (Bld) [Volume fraction] 36.9 % 37-47 [facility] Laboratory - CytologyOrdered By: Mavis Willis on 07-14-2023 [employer] Cyto stain Nom (Cvx/Vag) [ID] Comment . [facility] Comment on above: Shira Doss, [employer] hnologist (ASCP) Laboratory - Hematology and Cell countsOrdered By: Mavis Willis on 07-14-2023 Erythrocyte distribution width (RBC) [Entitic vol] 39.9 fL 35.1-43.9 [facility] Erythrocyte distribution width (RBC) [Ratio] 12.5 % 11.6-14.6 [facility] Immature granulocytes/100 WBC (Bld) 0.400 % 0.0-0.9 [facility] Comment on above: IG% - Immature Granu locytes (promyelocytes, myelocytes and metamyelocytes) > 1% indicates that a LEFT SHIFT is Present. MCH (RBC) [Entitic mass] 30.8 pg 27.0-32.0 [facility] Nucleated RBC/100 WBC (Bld) [Ratio] 0 % 0-5 [facility] Laboratory - Microbiology an d Antimicrobial susceptibilityOrdered By: Mavis Willis on 07-14-2023 N. gonorrhoeae DNA DORIS+probe Ql (Unsp spec) Negative Negative [facility] Comment on above: Performed at: =G - L [address] [id number] Director: Amira Blackwood MD, Phone: [phone] Laboratory - Miscellaneous t estsOrdered By: Mavis Willis on 07-14-2023 Service comment (Unsp spec) [Interp] Comment . [facility] Comment on above: This liquid based Th inPrep(R) pap test was screened withthe use of an image guided system. Service comment (Unsp spec) [Interp] . . [facility] [Mass/Vol]Or dered By: Mavis Willis on 07-14-2023 MCHC (RBC) [Mass/Vol] 35.2 g/dL 32-36 [facility] No Panel InformationOrdered By: Mavis Willis on 07-14-2023 Human Papillomavirus Screen Comment . [facility] Comment on above: The HPV DNA reflex c riteria were not met with this specimenresult therefore, no HPV testing was performed.Performed at: [facility] [id number] [place], [place] [id number] Director: Roger Jacobo MD, Phone: [phone] at: [facility] [address] [id number] Director: Amira Blackwood MD, Phone: [phone] Pathology report final diagnosis Narrative Comment . [facility] Comment on above: NEGATIVE FOR INTRAEP ITHELIAL LESION OR MALIGNANCY. Hepatitis B Surface Antigen Non-Reactive Nonreactive [facility] Hepatitis C Antibody Non-Reactive Nonreactive [facility] Comment on above: Non Reactive: < 0.8 Equivocal: >/= 0.8 to < 1.0 Reactive: >/= 1.0The CDC recommends that a reactive/equivocal HCV antibody result be followed up by the HCV Nucleic Acid Amplificationtest (517302) Miscellaneous Test Comment MAILED SPECIMEN [facility] Rubella IgG Antibody Reactive Nonreactive [facility] Comment on above: Antibody Results Int erpretation of Immune Status Non Reactive Presumed Non-Immune Equivocal Equivocal Reactive Presumed Immune Platelets bldOrdered By: Irlanda Willis on 07-14-2023 Platelets (Bld) [#/Vol] 202 10*3/uL 150-450 [facility] Serum Treponema species anti body detectionOrdered By: Mavis Willis on 07-14-2023 Treponema sp Ab Ql (S) Non-Reactive [facility] HIV 1 and HIV-2 antibody ass ay with HIV-1 p24 antigen detectionon 09-10-2022 HIV 1+2 Ab+HIV1 p24 Ag IA Ql Non-Reactive Nonreactive [facility] Work Phone: No Panel Informationon 09-10 Hepatitis B Surface Antibody Reactive [facility] Work Phone: Comment on above: Non Reactive: Incons istent with immunity less than <10 mIU/mL Reactive: Consistent with immunity greater than or equal to 10 mIU/mL Hepatitis B Surface Antigen Non-Reactive Nonreactive [facility] Work Phone: Hepatitis C Antibody Non-Reactive Nonreactive [facility] Work Phone: Comment on above: Non Reactive: < 0.8 Equivocal: >/= 0.8 to < 1.0 Reactive: >/= 1.0The CDC recommends that a reactive/equivocal HCV antibody result be followed up by the HCV Nucleic Acid Amplificationtest (295676) No Panel Informationon 06-18 POC SARS CoV-2 Antigen Negative [facility] Work Phone: Laboratory - Microbiology an d Antimicrobial susceptibilityon 05-12-2022 SARS-CoV-2 (COVID-19) RNA DORIS+probe Ql (Unsp spec) Detected [facility] Work Phone: No Panel Informationon 05-12 Influenza Types A,B Rapid (Clinic) Not detected [facility] Work Phone: PROGRESSon 06-23-2018 Protein mass conc HNO ID: [id number]: Estelle Subramanian: (none)Author Type: PhysicianType: Progress NotesFiled: 06/23/2018 1:25 PMNote Text:SUBJECTIVE:Nory Bui is a 22 year old woman who presents for follow up fornuvaring. No LMP recorded. Patient is not currently having periods(Reason: Drug Induced Amenorrhea).. Nexplanon 04/15/17. No steroids orantibiotics. Medications, allergies, surgeries, family history updated,and smoking status updated. States she did good the first month but hashad some spotting this month. She bled x 11d and stopped 2d ago; Shestarted the ring on 03/24 and changes the of each month. She wears aysha pad daily because she never knows if she will bleed. She can try 24/4regimen; no heavy bleeding. She is moving to [place]. I gave her 2 samplenuvarings and a printed script. If bleeding pattern doesn't normalize,would consider labs and ultrasound.OBJECTIVE: BP 110/78 Ht 5' 6 (1.68m) Wt 131 lb (59.4kg) BMI 21.15 kg/(m2).ASSESSMENT/PL AN:1. Polymenorrhea - ICD9: 626.2, ICD10: N92.0- ETONOGESTREL-ETHINYL ESTRADIOL 0.12 MG -0.015 MG/24 HR VAGINAL RING try24/4 Kam Mackay MD [facility] PROGRESSon 04-21-2018 Protein mass conc HNO ID: [id number]: Estelle Subramanian: (none)Author Type: PhysicianType: Progress NotesFiled: 04/21/2018 2:04 PMNote Text:SUBJECTIVELysean Bui is a 22 year old woman who presents for her annual exam:Last pap never, Mammo never, Bone Density never, Patient's last menstrualperiod was 03/23/2018.. Patient has been having irregular bleeding withthe nexplanon. She has bled up to 2 months in a row with the nexplanon.She has also noticed reduced sex drive. I offered ocp,xulane,nuvaring tosupplement estrogen. She would like to try the ring to help with BTB. Shedeclines std screening.Medications , Allergies, Surgeries, Family History updated and smokingstatus updated. Discussed health maintenance, including regular aerobicexercise, low fat diet, and periodic exams.HISTORIESFAMILY HISTORYProblem Relation Age of Onset- Breast Cancer Maternal Grandmother 60- Lung Cancer [OTHER] Maternal Grandfather- Prostate Cancer Maternal UnclePAST MEDICAL HISTORYDiagnosis Date- Asthma- Constipation- MigraineNo past surgical history on file.There is no problem list on file for this patient.ALLERGIESNo Known AllergiesCurrent Outpatient Prescriptions:etonoge strel (NEXPLANON) subdermal implant 68 mg 68 mg by SUBDERMAL route.Placed 04/15/2017.ethinyl estradiol/drospirenon e (BELIA, 28, ORAL) Take by mouth.No current facility-administered medications for this visit.REVIEW OF SYSTEMSGENERAL: No weight loss, malaise or feversHEENT: No changes in hearing or visionNECK: Negative for lumps, goiter, pain and significant neck swellingRESPIRATORY: Negative for cough, wheezing, dyspnea or shortness of breathCARDIOVASCULAR: Negative for chest pain or palpitationsGI: Negative for abdominal discomfort, blood in stools or black stools,change in bowel habit, diarrhea, nausea, vomiting, constipationGU: No history of dysuria, frequency or incontinenceGYN: Negative for abnormal vaginal bleeding, abnormal vaginal discharge orBreast symptomsENDOCRINE: Negative for cold or heat intolerance, polyuria, polydipsia andgoiterNEURO: No history of headaches, syncope, paralysis, seizures or tremorsOBJECTIVEBP 122/78 Ht 5' 6.6 (1.69m) Wt 130 lb (59.0kg) LMP 03/23/2018 BMI20.60 kg/(m2).HEENT: Within normal limitsNECK: Supple, no thyromegalyBREASTS: No masses, no nipple dischargeHEART: Regular rate and rhythm without murmur, rub, or gallopLUNGS: Clear bilaterally to auscultationABDOMEN: No masses, non tender, no hernias, no hepatosplenomegalyPEL DON: EGBUS: No lesions, normal appearance VAGINA: No discharge, + brown blood, no lesions CERVIX: No lesions, non tender UTERUS: Anteverted, normal size, non tender ADNEXA: Non tender, no massesRECTOVAGINAL: Not examinedEXTREMITIES: No edema, no calf tendernessNEUROLOGICA L: Grossly intactASSESSMENT/PLAN :1. Encounter for gynecological examination (general) (routine) withoutabnormal findings - ICD9: V72.31, ICD10: Z01.419 (primary diagnosis)- Completed pelvic and breast exam- Encouraged monthly BSE- Follow up for annual exam in one year.2. DUB (dysfunctional uterine bleeding) - ICD9: 626.8, ICD10: N93.8Trial of nuvaring (2 given)Estelle Mackay MD [facility] Vital Signs Date Time Vital Sign Value Performing Clinician Lissa lassiter 08-17-2025 10:51-0400 Body height 168.91 cm No Primary Care Physician [facility] 08-17-2025 10:51-0400 Body mass index (BMI) [Ratio] 23.5 kg/m2 No Primary Care Physician [facility] 08-17-2025 10:51-0400 Body weight 67.13 kg No Primary Care Physician [facility] 08-17-2025 10:51-0400 Diastolic blood pressure 76 mm[Hg] No Primary Care Physician [facility] 08-17-2025 10:51-0400 Systolic blood pressure 114 mm[Hg] No Primary Care Physician [facility] 07-26-2025 11:00-0400 Body height 168.91 cm No Primary Care Physician [facility] 07-26-2025 11:00-0400 Body mass index (BMI) [Ratio] 22.6 kg/m2 No Primary Care Physician [facility] 07-26-2025 11:00-0400 Body weight 64.58 kg No Primary Care Physician [facility] 07-26-2025 11:00-0400 Diastolic blood pressure 76 mm[Hg] No Primary Care Physician [facility] 07-26-2025 11:00-0400 Systolic blood pressure 114 mm[Hg] No Primary Care Physician [facility] 06-25-2025 08:34-0400 Body height 168.91 cm No Primary Care Physician [facility] 06-25-2025 08:32-0400 Body mass index (BMI) [Ratio] 22.3 kg/m2 No Primary Care Physician [facility] 06-25-2025 08:32-0400 Body weight 63.64 kg No Primary Care Physician [facility] 06-25-2025 08:32-0400 Diastolic blood pressure 76 mm[Hg] No Primary Care Physician [facility] 06-25-2025 08:32-0400 Systolic blood pressure 114 mm[Hg] No Primary Care Physician [facility] 02-19-2024 14:22-0400 Body temperature 97.9 [degF] No Primary Care Physician [facility] 02-19-2024 14:22-0400 Diastolic blood pressure 73 mm[Hg] No Primary Care Physician [facility] 02-19-2024 14:22-0400 Heart rate 88 /min No Primary Care Physician [facility] 02-19-2024 14:22-0400 Respiratory rate 16 /min No Primary Care Physician [facility] 02-19-2024 14:22-0400 Systolic blood pressure 111 mm[Hg] No Primary Care Physician [facility] 02-18-2024 07:08-0400 SaO2% (BldA) [Mass fraction] 98 % No Primary Care Physician [facility] 02-17-2024 17:26-0400 Body height 168.91 cm No Primary Care Physician [facility] 02-17-2024 17:26-0400 Body mass index (BMI) [Ratio] 26 kg/m2 No Primary Care Physician [facility] 02-17-2024 17:26-0400 Body weight 74.38 kg No Primary Care Physician [facility] 02-17-2024 15:59-0400 Body mass index (BMI) [Ratio] 26.6 kg/m2 No Primary Care Physician [facility] 02-17-2024 15:59-0400 Body weight 74.84 kg No Primary Care Physician [facility] 02-17-2024 15:59-0400 Diastolic blood pressure 82 mm[Hg] No Primary Care Physician [facility] 02-17-2024 15:59-0400 Systolic blood pressure 116 mm[Hg] No Primary Care Physician [facility] 02-10-2024 08:52-0400 Body weight 74.11 kg No Primary Care Physician [facility] 02-10-2024 08:52-0400 Diastolic blood pressure 80 mm[Hg] No Primary Care Physician [facility] 02-10-2024 08:52-0400 Systolic blood pressure 119 mm[Hg] No Primary Care Physician [facility] 02-03-2024 09:01-0400 Diastolic blood pressure 54 mm[Hg] No Primary Care Physician [facility] 02-03-2024 09:01-0400 Heart rate 80 /min No Primary Care Physician [facility] 02-03-2024 09:01-0400 Systolic blood pressure 96 mm[Hg] No Primary Care Physician [facility] 02-03-2024 07:58-0400 SaO2% (BldA) [Mass fraction] 98 % No Primary Care Physician [facility] 02-03-2024 07:48-0400 Body temperature 98.4 [degF] No Primary Care Physician [facility] 02-03-2024 07:48-0400 Respiratory rate 16 /min No Primary Care Physician [facility] 02-03-2024 06:37-0400 Body height 168.91 cm No Primary Care Physician [facility] 02-03-2024 06:37-0400 Body mass index (BMI) [Ratio] 25.6 kg/m2 No Primary Care Physician [facility] 02-03-2024 06:37-0400 Body weight 73.19 kg No Primary Care Physician [facility] 02-02-2024 09:42-0400 Body height 167.64 cm No Primary Care Physician [facility] 02-02-2024 09:42-0400 Body mass index (BMI) [Ratio] 26 kg/m2 No Primary Care Physician [facility] 02-02-2024 09:42-0400 Body weight 73.3 kg No Primary Care Physician [facility] 02-02-2024 09:30-0400 Body temperature 97.4 [degF] No Primary Care Physician [facility] 02-02-2024 09:30-0400 Diastolic blood pressure 83 mm[Hg] No Primary Care Physician [facility] 02-02-2024 09:30-0400 Heart rate 97 /min No Primary Care Physician [facility] 02-02-2024 09:30-0400 Respiratory rate 16 /min No Primary Care Physician [facility] 02-02-2024 09:30-0400 SaO2% (BldA) [Mass fraction] 97 % No Primary Care Physician [facility] 02-02-2024 09:30-0400 Systolic blood pressure 123 mm[Hg] No Primary Care Physician [facility] 02-02-2024 08:29-0400 Body mass index (BMI) [Ratio] 25.9 kg/m2 No Primary Care Physician [facility] 02-02-2024 08:29-0400 Body weight 74.16 kg No Primary Care Physician [facility] 02-02-2024 08:29-0400 Diastolic blood pressure 72 mm[Hg] No Primary Care Physician [facility] 02-02-2024 08:29-0400 Systolic blood pressure 110 mm[Hg] No Primary Care Physician [facility] 01-27-2024 16:03-0400 Body height 168.91 cm No Primary Care Physician [facility] 01-27-2024 16:03-0400 Body mass index (BMI) [Ratio] 25.9 kg/m2 No Primary Care Physician [facility] 01-27-2024 16:03-0400 Body weight 74.04 kg No Primary Care Physician [facility] 01-27-2024 16:03-0400 Diastolic blood pressure 75 mm[Hg] No Primary Care Physician [facility] 01-27-2024 16:03-0400 Systolic blood pressure 124 mm[Hg] No Primary Care Physician [facility] 01-12-2024 15:20-0500 Body mass index (BMI) [Ratio] 24.8 kg/m2 No Primary Care Physician [facility] 01-12-2024 15:20-0500 Body weight 70.87 kg No Primary Care Physician [facility] 01-12-2024 15:20-0500 Diastolic blood pressure 70 mm[Hg] No Primary Care Physician [facility] 01-12-2024 15:20-0500 Systolic blood pressure 110 mm[Hg] No Primary Care Physician [facility] 01-03-2024 10:06-0500 Body height 168.91 cm No Primary Care Physician [facility] 01-03-2024 10:06-0500 Body mass index (BMI) [Ratio] 24.7 kg/m2 No Primary Care Physician [facility] 01-03-2024 10:06-0500 Body weight 70.47 kg No Primary Care Physician [facility] 01-03-2024 10:06-0500 Diastolic blood pressure 68 mm[Hg] No Primary Care Physician [facility] 01-03-2024 10:06-0500 Systolic blood pressure 108 mm[Hg] No Primary Care Physician [facility] 12-28-2023 09:30-0500 Body weight 71.3 kg No Primary Care Physician [facility] 12-16-2023 15:34-0500 Body mass index (BMI) [Ratio] 25.2 kg/m2 No Primary Care Physician [facility] 12-16-2023 15:34-0500 Body weight 71.83 kg No Primary Care Physician [facility] 12-16-2023 15:34-0500 Diastolic blood pressure 80 mm[Hg] No Primary Care Physician [facility] 12-16-2023 15:34-0500 Systolic blood pressure 120 mm[Hg] No Primary Care Physician [facility] 11-29-2023 11:16-0500 Body height 168.91 cm No Primary Care Physician [facility] 11-29-2023 11:14-0500 Body mass index (BMI) [Ratio] 25 kg/m2 No Primary Care Physician [facility] 11-29-2023 11:14-0500 Body weight 71.21 kg No Primary Care Physician [facility] 11-29-2023 11:14-0500 Diastolic blood pressure 78 mm[Hg] No Primary Care Physician [facility] 11-29-2023 11:14-0500 Systolic blood pressure 117 mm[Hg] No Primary Care Physician [facility] 11-05-2023 09:28-0500 Body mass index (BMI) [Ratio] 24.4 kg/m2 No Primary Care Physician [facility] 11-05-2023 09:28-0500 Body weight 69.62 kg No Primary Care Physician [facility] 11-05-2023 09:28-0500 Diastolic blood pressure 80 mm[Hg] No Primary Care Physician [facility] 11-05-2023 09:28-0500 Systolic blood pressure 121 mm[Hg] No Primary Care Physician [facility] 10-05-2023 09:25-0500 Body height 168.91 cm No Primary Care Physician [facility] 10-05-2023 09:25-0500 Body mass index (BMI) [Ratio] 23.2 kg/m2 No Primary Care Physician [facility] 10-05-2023 09:25-0500 Body weight 66.22 kg No Primary Care Physician [facility] 10-05-2023 09:25-0500 Diastolic blood pressure 76 mm[Hg] No Primary Care Physician [facility] 10-05-2023 09:25-0500 Systolic blood pressure 111 mm[Hg] No Primary Care Physician [facility] 09-06-2023 15:41-0400 Body mass index (BMI) [Ratio] 23 kg/m2 No Primary Care Physician [facility] 09-06-2023 15:41-0400 Body weight 65.77 kg No Primary Care Physician [facility] 09-06-2023 15:41-0400 Diastolic blood pressure 74 mm[Hg] No Primary Care Physician [facility] 09-06-2023 15:41-0400 Systolic blood pressure 112 mm[Hg] No Primary Care Physician [facility] 08-11-2023 15:13-0400 Body mass index (BMI) [Ratio] 22.6 kg/m2 No Primary Care Physician [facility] 08-11-2023 15:13-0400 Body weight 64.41 kg No Primary Care Physician [facility] 08-11-2023 15:13-0400 Diastolic blood pressure 69 mm[Hg] No Primary Care Physician [facility] 08-11-2023 15:13-0400 Systolic blood pressure 106 mm[Hg] No Primary Care Physician [facility] 07-14-2023 09:41-0400 Body height 168.91 cm No Primary Care Physician [facility] 07-14-2023 09:40-0400 Body mass index (BMI) [Ratio] 23.1 kg/m2 No Primary Care Physician [facility] 07-14-2023 09:40-0400 Body weight 65.88 kg No Primary Care Physician [facility] 07-14-2023 09:40-0400 Diastolic blood pressure 72 mm[Hg] No Primary Care Physician [facility] 07-14-2023 09:40-0400 Systolic blood pressure 116 mm[Hg] No Primary Care Physician [facility] 09-11-2022 13:50-0400 Body height 168.91 cm No Primary Care Physician [facility] Work Phone: 09-11-2022 13:50-0400 Body mass index (BMI) [Ratio] 22.1 kg/m2 No Primary Care Physician [facility] Work Phone: 09-11-2022 13:50-0400 Diastolic blood pressure 74 mm[Hg] No Primary Care Physician [facility] Work Phone: 09-11-2022 13:50-0400 Systolic blood pressure 110 mm[Hg] No Primary Care Physician [facility] Work Phone: 09-11-2022 13:04-0400 Body weight 63.16 kg No Primary Care Physician [facility] Work Phone: 08-27-2022 11:32-0400 Body height 167.64 cm PA Chandler Mcdowell PA Work Phone: [facility] Work Phone: 08-27-2022 11:32-0400 Body mass index (BMI) [Ratio] 20.9 kg/m2 PA Chandler Mcdowell PA Work Phone: [facility] Work Phone: 08-27-2022 11:32-0400 Body temperature 97.2 [degF] JENNIE Mcdowell PA Work Phone: [facility] Work Phone: 08-27-2022 11:32-0400 Body weight 58.96 kg JENNIE Mcdowell PA Work Phone: [facility] Work Phone: 08-27-2022 11:32-0400 Diastolic blood pressure 85 mm[Hg] PA Chandler Mcdowell PA Work Phone: [facility] Work Phone: 08-27-2022 11:32-0400 Heart rate 86 /min PA Chandler Mcdowell PA Work Phone: [facility] Work Phone: 08-27-2022 11:32-0400 Respiratory rate 16 /min PA Chandler Mcdowell PA Work Phone: [facility] Work Phone: 08-27-2022 11:32-0400 SaO2% (BldA) [Mass fraction] 100 % PA Chandler Mcdowell PA Work Phone: [facility] Work Phone: 08-27-2022 11:32-0400 Systolic blood pressure 111 mm[Hg] PA Chandler Mcdowell PA Work Phone: [facility] Work Phone: 06-18-2022 12:48-0400 Body temperature 98.6 [degF] PA Chandler Mcdowell PA Work Phone: [facility] Work Phone: 06-18-2022 12:48-0400 Diastolic blood pressure 68 mm[Hg] PA Chandler Mcdowell PA Work Phone: [facility] Work Phone: 06-18-2022 12:48-0400 Heart rate 81 /min PA Chandler Mcdowell PA Work Phone: [facility] Work Phone: 06-18-2022 12:48-0400 Respiratory rate 16 /min PA Chandler Mcdowell PA Work Phone: [facility] Work Phone: 06-18-2022 12:48-0400 SaO2% (BldA) [Mass fraction] 98 % PA Chandler Mcdowell PA Work Phone: [facility] Work Phone: 06-18-2022 12:48-0400 Systolic blood pressure 124 mm[Hg] PA Chandler Mcdowell PA Work Phone: [facility] Work Phone: Encounters Encounter Date Encounter Type Care Provider Facility Start: 09-10-2025 End: 09-10-2025 ambulatory Jelena Fragoso Facility:[facility] Start: 08-31-2025 End: 08-31-2025 ambulatory MD NO PRIMARY CARE [facility] Start: 08-17-2025 End: 08-17-2025 Patient encounter procedure Jelena Fragoso CNM -[facility] Work Phone: Start: 08-17-2025 End: 08-17-2025 ambulatory No Primary Care Physician -[facility] Start: 07-26-2025 End: 07-26-[address] Lori Schneider MD -[facility] Work Phone: Start: 07-26-2025 End: 07-26-2025 ambulatory No Primary Care Physician -[facility] Start: 06-25-2025 End: 06-25-2025 ambulatory No Primary Care Physician -Laboratory Specimen Start: 06-25-2025 End: 06-25-2025 Patient encounter procedure Yumiko Mcpherson CNM -Laboratory Specimen Work Phone: Start: 06-25-2025 End: 06-25-[address] Mavis Aranda DO -[facility] Work Phone: Start: 06-25-2025 End: 06-25-2025 ambulatory No Primary Care Physician -[facility] Start: 06-25-2025 End: 06-25-2025 ambulatory Yumiko Mcpherson Facility:[facility] Start: 03-30-2024 End: 03-30-2024 ambulatory LANDON MCPHERSON [place] [place] Start: 03-30-2024 End: 03-30-2024 ambulatory Sakina Quintero PT Work Phone: [facility] Comment on above: Muscle weakness (Hollie elena Dx) Start: 02-19-2024 Non-patient / Non-visit No Hollie elena Care Physician [facility] Start: 02-18-2024 Non-patient / Non-visit No Hollie elena Care Physician [facility] Start: 02-17-2024 Non-patient / Non-visit No Hollie elena Care Physician [facility] Start: 02-17-2024 End: 02-19-2024 Evaluation and management of inpatient No Primary Care Physician [facility] [place] Work Phone: Start: 02-17-2024 End: 02-17-2024 Patient encounter procedure No Primary Care Physician [facility] Work Phone: Start: 02-15-2024 End: 02-15-2024 ambulatory LANDON MCPHERSON [place] Start: 02-15-2024 End: 02-15-2024 ambulatory Sakina Daveych PT Work Phone: [facility] Start: 02-15-2024 End: 02-15-2024 Manual pelvic examination Sakina Suzan PT Work Phone: [facility] Comment on above: Pelvic floor dysfunc tion (Primary Dx) Start: 02-10-2024 End: 02-10-2024 Patient encounter procedure No Primary Care Physician [facility] Work Phone: Start: 02-03-2024 Non-patient / Non-visit No Hollie parekr [facility] Physician [facility] Start: 02-03-2024 End: 02-03-2024 ambulatory No Primary Care Physician [facility] Work Phone: Start: 02-03-2024 End: 02-03-2024 Patient encounter procedure No Primary Care Physician [facility] Work Phone: Start: 02-02-2024 Non-patient / Non-visit No Hollie parker [facility] Physician [facility] Start: 02-02-2024 End: 02-02-2024 ambulatory No Primary Care Physician [facility] Work Phone: Start: 02-02-2024 End: 02-02-2024 Patient encounter procedure No Primary Care Physician [facility] Work Phone: Start: 01-31-2024 End: 01-31-2024 [facility] Start: 01-31-2024 End: 01-31-2024 ambulatory Sakina Quintero PT Work Phone: [facility] Start: 01-31-2024 End: 01-31-2024 Manual pelvic examination Sakina Quintero PT Work Phone: [facility] Comment on above: Pelvic floor dysfunc tion (Primary Dx) Start: 01-27-2024 End: 01-27-2024 ambulatory No Primary Care Physician [facility] Work Phone: Start: 01-27-2024 End: 01-27-2024 Patient encounter procedure No Primary Care Physician [facility] Work Phone: Start: 01-18-2024 End: 01-18-2024 ambulatory Sakina Quintero PT Work Phone: [facility] Start: 01-18-2024 End: 01-18-2024 Manual pelvic examination Sakina Quintero PT Work Phone: [facility] Comment on above: Pelvic floor dysfunc tion (Primary Dx) Start: 01-12-2024 End: 01-12-2024 Patient encounter procedure No Primary Care Physician [facility] Work Phone: Start: 01-11-2024 End: 01-11-2024 ambulatory LANDON LOUIN Facility:[facility] Start: 01-03-2024 End: 01-03-2024 ambulatory [facility] Start: 01-03-2024 End: 01-03-2024 ambulatory No Primary Care Physician [facility] Work Phone: Start: 01-03-2024 End: 01-03-2024 Patient encounter procedure No Primary Care Physician [facility]Laboratory[facility] Start: 12-28-2023 End: 01-06-2024 ambulatory No Primary Care Physician [facility] Work Phone: Start: 12-28-2023 End: 01-06-2024 Discharged Recurring No Primary Care Physician [facility] Work Phone: Start: 12-16-2023 End: 12-16-2023 Patient encounter procedure No Primary Care Physician [facility] Work Phone: Start: 12-07-2023 End: 12-07-2023 ambulatory No Primary Care Physician [facility] Work Phone: Start: 12-07-2023 End: 12-07-2023 Patient encounter procedure No Primary Care Physician [facility]Labor[facility] Work Phone: Start: 11-29-2023 End: 11-29-2023 ambulatory No Primary Care Physician [facility] Work Phone: Start: 11-29-2023 End: 11-29-2023 Patient encounter procedure No Primary Care Physician [facility] Work Phone: Start: 11-05-2023 End: 11-05-2023 Patient encounter procedure No Primary Care Physician [facility] Work Phone: Start: 10-05-2023 End: 10-05-2023 ambulatory No Primary Care Physician [facility] Work Phone: Start: 10-05-2023 End: 10-05-2023 Patient encounter procedure No Primary Care Physician [facility] Work Phone: Start: 10-04-2023 End: 10-04-2023 Patient encounter procedure No Primary Care Physician [facility] Ultrasound Work Phone: Start: 09-06-2023 End: 09-06-2023 Patient encounter procedure No Primary Care Physician [facility] Work Phone: Start: 08-11-2023 End: 08-11-2023 Patient encounter procedure No Primary Care Physician [facility] Work Phone: Start: 07-14-2023 End: 07-14-2023 ambulatory No Primary Care Physician [facility] Work Phone: Start: 07-14-2023 End: 07-14-2023 Patient encounter procedure No Primary Care Physician [facility] Start: 07-14-2023 End: 07-14-2023 Patient encounter procedure No Primary Care Physician [facility] Work Phone: Start: 09-11-2022 End: 09-11-2022 ambulatory No Primary Care Physician [facility] Work Phone: Start: 09-11-2022 End: 09-11-2022 Patient encounter procedure No Primary Care Physician [facility]-Laboratory, Specimen Start: 09-11-2022 End: 09-11-2022 Patient encounter procedure No Primary Care Physician [facility] Start: 09-10-2022 Registered Referred No Primary Care Physician [facility]Laboratory Start: 08-27-2022 End: 08-27-2022 Departed Referred No Primary Care Physician [facility] Start: 08-27-2022 End: 08-27-2022 Emergency department patient visit [facility] Start: 06-18-2022 End: 06-18-2022 Patient encounter procedure JENNIE SCHNEIDER Work Phone: [facility] Start: 05-12-2022 End: 05-12-2022 Patient encounter procedure JENNIE SCHNEIDER Work Phone: [facility] Start: 05-11-2022 Registered Referred JENNIE SCHNEIDER Work Phone: [facility] Procedures Date Procedure Procedure Detail Performing Clinician Start: 06-25-2025 Urine culture No Primar y Care Physician Start: 06-25-2025 Hepatitis C antibody measurement No Primary Care Physician Comment on above: Reactive: Presumptiv e evidence of antibodies to HCV. Follow CDC recommendations for supplemental testing.Non-Reactive: Antibodies to HCV were not detected; does not exclude the possibility of exposure to HCVReactive Results are presumptive evidence of antibodies to HCV. Follow CDC recommendations for supplemental testing.Order confirmation testing: HCV Quant by PCR testing - HCVPCR #[id number] Non Reactive: < 0.8 Equivocal: >/= 0.8 to < 1.0 Reactive: >/= 1.0The CDC requires that a reactive/equivocal HCV antibody result be sent out for confirmation. HCV Quant by PCR testing. Start: 06-25-2025 Procedure No Primary Care Physician Start: 06-25-2025 Rubella IgG measurement No Primary Care Physician Comment on above: Antibody Result: Int erpretationNon-Reactive: Non- ImmuneReactive: ImmuneThe following results were obtained with the [employer] Rubella IgG assay. Results from assays of other manufacturers cannot be used interchangeably. Start: 06-25-2025 Serologic test for syphilis No Primary Care Physician Start: 02-02-2024 Ultrasonography for antepartum monitoring of fetus No Primary Care Physician Start: 01-27-2024 Ultrasound scan for growth No Primary Care Physician Start: 01-27-2024 Group B Streptococcu s Culture No Primary Care Physician Start: 10-04-2023 Ultrasonography in f irst trimester No Primary Care Physician Start: 07-14-2023 Urine culture No Primar y Care Physician Viral antigen assay JNENIE SCHNEIDER Work Phone: Plan of Treatment Date Care Activity Detail Author Start: 11-29-2033 Urine microalbumin profile DTa P,Tdap,Td Vaccine (2 - Td or Tdap) [facility] Start: 05-09-2024 End: 05-09-2024 Manual pelvic examination 05/09/2024 8:15 AM EDT OT/PT/Speech Visit [facility] [address] [place] [address] Sakina Quintero, PT [address] [place], [place] [address] pelvic floor pre- [facility] Comment on above: pelvic floor pre-par owen Start: 05-03-2024 End: 05-03-2024 Manual pelvic examination 05/03/2024 3:30 PM EDT OT/PT/Speech Visit [facility] [address] [place] [address] Karan Hansen, PT [address] [place] [address] pelvic floor pre- [facility] Comment on above: pelvic floor pre-par owen Start: 04-27-2024 End: 04-27-2024 Manual pelvic examination 04/27/2024 1:00 PM EDT OT/PT/Speech Visit [facility] [address] [place] [address] Sakina Quintero, PT [address] [place] [address] pelvic floor pre- [facility] Comment on above: pelvic floor pre-par owen Start: 04-18-2024 End: 04-18-2024 Manual pelvic examination 04/18/2024 8:15 AM EDT OT/PT/Speech Visit [facility] [address] [place] [address] Sakina Quintero, PT [address] [place] [address] pelvic floor pre- [facility] Comment on above: pelvic floor pre-par owen Start: 02-19-2024 Patient discharge [facility] Start: 02-18-2024 Administration of medication [facility] Start: 02-18-2024 Application of ice c ollar, cap or bag [facility] Start: 02-18-2024 Catheterization of vein [facility] Start: 02-18-2024 Introduction of urin ronnie catheter [facility] Start: 02-18-2024 Measuring intake and output [facility] Start: 02-18-2024 Notification of physician [facility] Start: 02-18-2024 Procedure discontinued [facility] Start: 02-18-2024 Provision of activit y privileges [facility] Start: 02-18-2024 Vital signs measurements [facility] Start: 02-18-2024 End: 02-18-2024 [facility] Start: 02-18-2024 Documentation procedure [facility] Start: 02-17-2024 Admission procedure [facility] Start: 02-03-2024 Iv infusion hydratio n each additional hour HYDRATE IV INFUSION ADD-ON [facility] Start: 02-03-2024 Iv infusion hydratio n initial 31 min-1 hour HYDRATION IV INFUSION INIT [facility] Start: 02-03-2024 Nonstress test [facility] Start: 02-03-2024 Catheterization of vein [facility] Start: 02-03-2024 [facility] Start: 02-02-2024 Nonstress test [facility] Start: 02-02-2024 Obstetric monitoring [facility] Start: 02-02-2024 Ultrasonography for antepartum monitoring of fetus [facility] Start: 02-02-2024 Vital signs measurements [facility] Start: 02-02-2024 [facility] Start: 02-02-2024 Patient discharge [facility] Start: 11-08-2023 Behavioral Health Screening Behavioral Health Screening [facility] Start: 11-08-2023 Depression Assessment Depression Ass essment [facility] Start: 07-09-2023 Covid-19 Vaccine ( season) Covid-19 Vaccine ( season) [facility] Start: 09-11-2022 Liquid based cervica l cytology screening [facility] Work Phone: Start: 04-21-2021 Screening for malign ant neoplasm of cervix Pap Testing [facility] Start: 2015 Hepatitis B Vaccine (1 of 3 - 19+ 3-dose series) Hepatitis B Vaccine (1 of 3 - 19+ 3-dose series) [facility] Start: 2014 Hepatitis C screening Hepatitis C Sc reening [facility] Start: 2014 HIV screening HIV Screening [facility] Erythrocyte mean corpuscular volume determination [facility] Hematocrit [Volume Fraction] of Blood [facility] Hemoglobin [Mass/vol ume] in Blood [facility] Hemoglobin A1c/Hemoglobin.total in Blood [facility] Hepatitis B virus salazar rface Ag [Presence] in Serum [facility] Hepatitis C antibody measurement [facility] Leukocytes [#/volume ] in Blood [facility] Mean corpuscular hemoglobin concentration determination [facility] Mean corpuscular hemoglobin determination [facility] Neutrophil count [facility] Neutrophil percent differential count [facility] Path report.final Dx Spec [facility] Work Phone: Patient Education [facility] Work Phone: Patient referral [facility] Work Phone: Platelets [#/volume] in Blood [facility] Procedure [facility] Red blood cell count [facility] Red cell distributio n width determination [facility] Rubella IgG measurement [facility] Serologic test for syphilis [facility] Ultrasound scan for growth [facility] [place] Immunizations Immunization Date Immunization Notes Care Provider Fa cility 11-29-2023 tetanus toxoid, redu kym diphtheria toxoid, and acellular pertussis vaccine, adsorbed No Primary Care Physician [facility] 08-11-2023 influenza, injectabl e, quadrivalent, preservative free No Primary Care Physician [facility] 09-23-2022 influenza, injectabl e, quadrivalent, preservative free No Primary Care Physician [facility] 08-14-2021 influenza, injectabl e, quadrivalent, preservative free No Primary Care Physician [facility] 08-14-2021 influenza, seasonal, injectable JENNIE SCHNEIDER Work Phone: [facility] Work Phone: 12-24-2020 Covid (Moderna) JENNIE Archibald is PA Work Phone: [facility] 11-26-2020 Maxwellid (Moderna) JENNIE Archibald is PA Work Phone: [facility] 11-11-2020 influenza, injectabl e, quadrivalent, preservative free No Primary Care Physician [facility] 11-11-2020 influenza, seasonal, injectable PA Chandler SCHNEIDER Work Phone: [facility] Work Phone: Payers Date Payer Category Payer Unknown [id number] 2025 Self-pay 2023 Private Health Insurance NICHOLAS BLAS [facility] [employer] Income [id number] 2023-Present [phone] [address] [place] [address] PPO [id number] 2023 Unknown [id number] 1995 Unknown [id number] Unknown [id number] Unknown [id number] 62 Unknown [id number] 62 Unknown [id number] 62 Unknown [id number] 62 Unknown [id number] 62 Unknown [id number] 62 Social History Date Type Detail Facility Start: 08-27-2022 End: 02-17-2024 Tobacco smoking status CAIS Unknown if ever smoked [facility] Start: 1995 Sex Assigned At Female [facility] Start: 04-20-2018 End: 05-31-2025 Tobacco smoking status NHIS Never smoked tobacco [facility] Start: 04-20-2018 Tobacco use and exposure Smokeless tobacco non-user [facility] Start: 06-23-2018 End: 01-31-2024 History of Social function [facility] Start: 06-23-2018 End: 01-31-2024 Tobacco use panel [facility] Adult Depression Screening Assessment 0 [facility] Start: 1995 [facility] NEGATED: Highlighted row [facility] Work Phone: Medical Equipment Procedure Code Equipment Code Equipment Origin al Text Equipment Identifier Dates Blood Sugar Diagnostic (Blood Glucose Test) strip Start: 12-09-2023 [facility] Start: 12-09-2023 Blood Sugar Diagnostic (Blood Glucose Test) strip Start: 12-09-2023 [facility] Start: 12-09-2023 Blood Sugar Diagnostic (Blood Glucose Test) strip Start: 12-09-2023 [facility] Start: 12-09-2023 Blood Sugar Diagnostic (Blood Glucose Test) strip Start: 12-09-2023 [facility] Start: 12-09-2023 Blood Sugar Diagnostic (Blood Glucose Test) strip Start: 12-09-2023 [facility] Start: 12-09-2023 Blood Sugar Diagnostic (Blood Glucose Test) strip Start: 12-09-2023 [facility] Start: 12-09-2023 Blood Sugar Diagnostic (Blood Glucose Test) strip Start: 12-09-2023 [facility] Start: 12-09-2023 Blood Sugar Diagnostic (Blood Glucose Test) strip Start: 12-09-2023 End: 03-31-2024 [facility] misc Start: 12-09-2023 End: 03-31-2024 Blood Sugar Diagnostic (Blood Glucose Test) strip Start: 12-09-2023 End: 03-31-2024 [facility] misc Start: 12-09-2023 End: 03-31-2024 Blood Sugar Diagnostic (Blood Glucose Test) strip Start: 12-09-2023 End: 03-31-2024 [facility] misc Start: 12-09-2023 End: 03-31-2024 Blood Sugar Diagnostic (Blood Glucose Test) strip Start: 12-09-2023 End: 03-31-2024 [facility] misc Start: 12-09-2023 End: 03-31-2024 Blood Sugar Diagnostic (Blood Glucose Test) strip Start: 12-09-2023 End: 03-31-2024 [facility] Start: 12-09-2023 End: 03-31-2024 Goals Date Patient Goal Desired Activity /State Clinical Notes 05-21-2023 to 08-17-2025 Note Date & Type Note Facility 08-17-2025 Progress note [facility] 07-26-2025 Progress note [facility] 06-25-2025 Evaluation note Diagnosis Onset Date Resolution History of polyhydramnios acute June 25 8:27am Hx of gestational diabetes in prior , currently acute June 25 8:27am acute June 25 025 8:27am Prior complicated by SGA (small for gestational age), antepartum acute June 25 8:27am Supervision of high-risk acute June 25 8:27am [facility] Work Phone: 1(736) 968-397908-18-2025 Evaluation note* Diagnosis Onset Date Resolution Status Admit Date History of polyhydramnios acute June 25, 2025 8:27am Hx of gestational diabetes i n prior , currently acute June 25 8:27am acute June 25 025 8:27am Prior complicated by SGA (small for gestational age), antepartum acute June 25 8:27am Supervision of high-risk acute June 25 8:27am History of polyhydramnios acute July 26, 2025 10:57am Hx of gestational diabetes i n prior , currently acute July 26, 2025 10:57am acute July 10:57am Prior complicated by SGA (small for gestational age), antepartum acute July 26, 2025 10:57am Supervision of high-risk acute July 26, 2025 10:57am [facility] Work Phone: 1(248) 254-899408-18-2025 Evaluation note* Diagnosis Onset Date Resolution Status Admit Date History of polyhydramnios acute June 25, 2025 8:27am Hx of gestational diabetes i n prior , currently acute June 25 8:27am acute June 25, 025 8:27am Prior complicated by SGA (small for gestational age), antepartum acute June 25 8:27am Supervision of high-risk acute June 25 8:27am History of polyhydramnios acute July 26, 2025 10:57am Hx of gestational diabetes i n prior , currently acute July 26, 2025 10:57am acute July 10:57am Prior complicated by SGA (small for gestational age), antepartum acute July 26, 2025 10:57am Supervision of high-risk acute July 26, 2025 10:57am History of polyhydramnios acute August 17, 2025 10:43am Hx of gestational diabetes i n prior , currently acute August 17 10:43am acute August 17, 2025 10:43am Prior complicated by SGA (small for gestational age), antepartum acute August 17, 025 10:43am Supervision of high-risk acute August 17 10:43am [facility] Work Phone: 1(572) 571-414208-18-2025 Progress [facility] [address] [place] [address], [address] [place] [address] OFFICE VISIT Date of Service: 06/25/25 MR#: [id number] Acct: [id number] Name: NORY BUI Rep #: [id number] : 1995 Provider: Dr. Jojo Aranda DO Age/Sex: 29/F [place] [facility] Status: Signed Intake Vital Signs 03/31/24 11:11 06/25/25 08:32 06/25/25 08:34 Height 5 ft 6.5 in 5 ft 6.5 in 5 ft 6.5 in Weight: 140 lb 5 oz BMI 22.3 BP 114/76 Intake Visit Reasons: *EST* NOB LMP 04/14, RAMÓN 01/19 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 Is patient in pain?: No Allergies No Known Allergies Allergy (Verified 06/25/25 08:31) Medications ?Medication ?Instructions ?Recorded ?Confirmed ?Type docosahexaenoic acid 200 mg mg PO 05/31/25 06/25/25 Hi story capsule ( DHA) vitamins no.163-iron tab PO DAILY 05/31/25 History bis-gly 20 mg-folate no.10 1 mg tablet (PNV Tabs 20-1) pyridoxine (vitamin B6) 25 mg 25 mg PO TID 05/31/25 History tablet Last Menstrual Period: 04/14/25 Zika: Zika virus screening: Negative : No PFSH PFSH Medical History Vaginal delivery Successful external cephalic version Anemia affecting Polyhydramnios Gestational diabetes Asthma Family History Grandmother Cancer Breast cancer, and anal cancer Rectal cancer, Onset Age: 79 maternal Breast cancer, Onset Age: 65 Maternal Grandfather Cancer, Onset Age: 50 Maternal- testicular Uncle Cancer, Onset Age: 16 Maternal Brain cancer at 32yo Father Diabetes Social History adopted: No household members: spouse and children housing: house number of children: 1 current occupational status: unemployed current occupation: [employer] current occupational exposures/hazards: No pets and animals: Yes pets and animals: dog(s) history of recent travel: No sexually active: Yes Smoking Status: Never smoker alcohol intake: current alcohol intake frequency: holidays/special occasions only details: NOT WHILE substance use type: does not use well-balanced diet: daily or most days caffeine: Yes Type: coffee Number of servings: 1 eating out: 1-3 times/week during the past year weight has: remained stable what type of physical activity do you participate in: walking frequency: daily duration: 15-30 minutes/day miguel/latter day: Hindu seatbelt use: always do you feel safe at home: Yes additional social history: - Siva History 2 Elective abortions Hx Para 1 Spontaneous abortions Hx # Term Pregnancies Ectopic pregnancies Hx # Pregnancies Multiple births # of living children 1 Past Pregnancies Del. Date Name GA/Weeks Outcome Route Bth Weight Gen Labor Lgth Anesthesia Del Locatn Provider FOB 02/18/24 Idalina 40 live - full term 6# Female epi dural [facility] Delivery Date: 02/18/24 Last Updated by: Lizabeth RAMIREZ- 40 IOL poly GDM HPI *EST* NOB LMP 6/7, RAMÓN 01/19 Details: NORY BUI is a 29 year old who presents for New OB visit. OB Visit RAMÓN Calculator Estimated Delivery Date Method Current WG Current Estimate 01/19/26 LMP (Certain) 10w 2d Other Estimates 01/19/26 Ultrasound #1 10w 2d Estimated Due Date: 01/19/26 Expected Delivery Route/Plan Labor Preferences- CB/BF classes: [] labor support person: [] labor intervention preferences: [] pain management options preferred: [] cut cord/dad catch: [] : [] PP control planned: [] discussed possible routes of delivery and associated risks: [] special requests: [] Specific Issue/Plans Covid status: [] Flu vaccine: [] Tdap vaccine: [] Rhogam: [] LARC form signed: [] Problem list reviewed and updated with the most current plan of care details and appropriate ordersplaced. Relevant counseling for the gestational age provided. Continue routine care and follow up unless otherwise noted in visit notes/problem list details Initial Weight: Not Recorded Date -?-?-?-?-?-?-?-?-?-?-?-?- EGA Weight BP Urine Prot -?-?-?-?-?-?-?-?-?-?-?-?- Glucose FHR FuHt Pres Dilation -?-?-?-?-?-?-?-?-?-?-?-?- Effaced St Visit Note 06/25/25 -?-?-?-?-?-?-?-?-?-?-?-?- 10w 2d 140 lb 5 oz 114/76 -?-?-?-?-?-?-?-?-?-?-?-?- 168 -?-?-?-?-?-?-?-?-?-?-?-?- JV- CRL consiste nt with LMP. desires NIPT. 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 Menstrual History Last Menstrual Period: 04/14/25 Reported LMP: definite Normal amount/duration: Yes Frequency in days: 26 On hormonal BC at conception: No hCG+: 05/08/25 Antepartum Record Genetic Screening: Congenital Heart Defect: Other, Neural Tube Defect: Other, Hemoglobinopathy Or Carrier: Other, Cystic Fibrosis: Other, Chromosome Abnormality: Other, Mark-Sachs: Other, Hemophilia: Other, Intellectual Disability/Autism: Other, Recurrent Loss/Stillbirth: Patient (Mother 2 miscarriages), Other Structural Defect: Other, Other Genetic Disease: Other and Maternal Metabolic Disorder: Other Infection History: Live with someone with TB or Exposed to TB: No, Patient or Partner has history of Genital Herpes: No, Rash or Viral illness since last mentrual period: No, Prior GBS-Infected child: No, History of STD: No, HIV Infection: No, History of Hepatitis: No, Recent travel outside of [place]: No, Concern for hepatitis exposure: No, Varicella immune: Yes (immune-virus) and Covid Vaccinated: Yes (Moderna, 1 Boosters) Medical History Medical History: Positive: Diabetes (GDM), Pulmonary (e.g.,TB,Asthma) (childhood), Seasonal allergies, Relevant family history (See PFSH ) and Other (anemia with 1st ) and Negative: Hypertension, Heart disease, Auto- immune disorder, Kidney disease/UTI, Neurologic/epilepsy, Psychiatric, Depr ession/ depression, Hepatitis/liver disease, Varicosities/phlebitis, Thyroid dysfunction,Trauma/domestic violence, History of blood transfusions, D (Rh) Sensitized, Drug/latex allergies/reactions, Breast, Piano Tuner surgery, Operations/hospitalizations, Anesthetic complications, History of abnormal pap, Uterine anomaly/isiah, Infertility and Anti-retroviral treatment ACOG First Trimester First Trimester: Desire for , Alcohol, Tobacco Cessation, Illicit/Recreational Drug/Substance Use, Intimate Partner Violence, Barriers to care, Unstable Housing, Communication Barriers, Environmental/Work Hazards, Anticipated Course of Care, Toxoplasmosis Precations, Use of Any med ications, Sexual activity, Exercise, Dental Care, Sauna/Hot tub use, Seat Belt use, Childbirth classes/Hospital facilities, Travel, Indications for Ultrasound and Screening for Aneuploidy; Discussed Second Trimester Second Trimester: Signs and Symptoms of Labor and Selecting a care provider Third Trimester Third Trimester: Pain Management Plans, Labor support person(s), Immediate Larc, Circumcision preference, Movement Monitoring, Signs and Symptoms of Preeclampsia, Feeding No , [place] Education, Family Medical Leave or Disability Forms and Intimate Partner Violence; Discussed Depression ROS Const Reports system reviewed and no additional complaints, except as documented, Reports fatigue and Denies fever(s) Eyes Reports system reviewed and no additional complaints, except as documented ENT Reports system reviewed and no additional complaints, except as documented Card Denies chest pain and Denies dyspnea Resp Reports system reviewed and no additional complaints, except as documented, Denies cough and Deniesdyspnea GI Denies abdominal pain and Reports nausea Reports system reviewed and no additional complaints, except as documented Musc Reports system reviewed and no additional complaints, except as documented Skin/Breast Reports system reviewed and no additional complaints, except as documented Neuro Yes system reviewed and no additional complaints, except as documented Psych Reports system reviewed and no additional complaints, except as documented Endo Reports system reviewed and no additional complaints, except as documented and Reports fatigue Exam Const General: healthy appearing, comfortable and no acute distress Orientation: alert [facility] Head: normal to inspection, normocephalic and atraumatic Ears: hearing grossly normal bilaterally and external ears normal Nose: external nose normal and nares normal Mouth: oral mucosae normal Teeth and gingiva: dentition normal Eyes General: appearance normal, both eyes and all related structures Neck Neck: normal visual inspection, no lymphadenopathy and supple Thyroid: thyroid normal Chest Chest palpation & inspection: normal inspection of the chest Breast inspection: normal inspection of the breasts and normal inspection of the axillae Breast palpation: normal palpation of the breasts and normal palpation of the axillae Resp Effort & Inspection: normal respiratory effort GI Inspection: normal to inspection Palpation: soft and no hepatosplenomegaly General: bladder normal to palpation External Female Exam: normal external appearance and normal appearance of the urethra Urethra: normal appearance of the urethra Speculum Exam - Vagina: normal appearance of the vagina and normal vaginal discharge Speculum Exam - Cervix: normal appearance of the cervix Bimanual Exam- Vagina & Uterus: normal bimanual exam, bladder normal to palpation, non-tender and other Bimanual Exam- Adnexa, other: non-tender Skin General: no rashes or lesions noted Neuro Motor: muscle tone normal throughout and no movement abnormalities noted Extrem General: normal to inspection and full ROM Supplemental Info ACOG book given and patient encouraged to read about nutrition, exercise, weight gain, and food avoidance in . Coding Level of Care Code OB Routine Diagnoses Prior complicated by SGA (small for gestational age), antepartum O09.299 History of polyhydramnios Z87.59 Supervision of high-risk O09.90 10 weeks gestation of Z3A.10 Weeks of gestation: 10 weeks Hx of gestational diabetes in prior , currently O09.299; Z86.32 Assessment and Plan Assessment and Plan (1) Prior complicated by SGA (small for gestational age), antepartum: Status: Acute (2) History of polyhydramnios: Status: Acute Comment: 1st (3) Supervision of high-risk : Status: Acute Comment: , RAMÓN 01/19/26, TONIE Ruiz, Siva (4) : Status: Acute Qualifiers: Weeks of gestation: 10 weeks Qualified Code(s): Z3A.10 - 10 weeks gestation of Comment: elects NIPT with Gender (5) Hx of gestational diabetes in prior , currently : Status: Acute Plan Patient oriented to practice and discussed care expectations and screenings. ACOG book offered to patient. Discussed routine and specially indicated labs if needed- patient consents to testing. See problem list details for plan information. Optional screening including maternal carrier screenings, neural tube defect screening, genetic screening options including quad screen, nuchal translucency, sequential screening, and NIPT screening offered to patient and patient chose: nipt 06/25/25 0900 memo Willis DO> Date _ Mavis Whipple Signature: Date (if applicable) CC: ~ [facility]05-23-2024 NoteHNO ID: [id number] Author: SAKINA QUINTERO PT Service: ? Author Type: Physical Therapist Type: Progress Notes Filed: 03/30/2024 16:45 Note Text: Episode Visit Count: 1 Therapist That Will Accept/Oversee The Plan Of Care: Sakina Quintero PT, DPT Start of Care Date: 03/30/24 Onset Date: 02/18/24 Patient Identified by Name and Date of : Yes REHABILITATION AND SPORTS THERAPY PHYSICAL THERAPY EVALUATION PLAN OF CARE: Assessment: Nory Bui presents with chief complaint of muscle weaknes s/p vaginal delivery February 18, 2024 that interferes with bowel function, physical activities . She presents with impairments in coordination, overall function, range of motion, strength, and symptom management. PROMIS? (Patient-Reported Outcomes Measurement Information System) scores were reviewed and identified as a rehabilitation concern. Prognosis for therapy is Good due to: current objective clinical presentation, positive past response to therapy, good overall health status, acuteness of condition, good support system/ coping skills . Deficits consistent with state. Further deficits likely to present as patient returns to more normal activity levels. She will benefit from skilled therapy services to meet the goals established for this plan of care as noted below. Goals for Episode of Care: created on 03/30/24 through 08/17/24 Patient will pass return to running assessment to allow full return to PLOF. Patient will demonstrate increase in bilateral hip strength to 4+/5 during manual muscle testing in order to improve function for leisure / recreation skills, prior functional tasks, and work tasks. Patient demonstrates independence and compliance with home exercise program. Patient displays improved range of motion, coordination, and muscle dynamics of pelvic floor as evidenced by the ability to lengthen without paradoxical contraction at least 80% of the time to normalize bladder/bowel function; reduce pelvic pain. Patient to increase strength of pelvic floor to Power 3+/5, Endurance 10/10, Repetitions 10/10 , and Fast Reps 8/10 in order to improve bladder/bowel control. Patient to correctly isolate pelvic floor muscles without compensatory patterns of breath holding and abdominal use to improve bladder/bowel control. Patient reports increased fiber intake up to 25-35 grams per day to normalize bowel health. Coordinate pelvic floor with thoracic diaphragm during Functional mobility and change in position to decreasing incontinence and/or pain. Patient Goals: Get back to exercise Planned Interventions, Frequency, and Duration: Current Frequency: 1x every other week Duration: 16 weeks Total Number of Visits Planned: 12 Planned Treatment Interventions: Therapeutic exercise (09923), Manual therapy (85787), Neuromuscular re-education (25272), Self-assisted management (61703), Therapeutic activities (96279), Patient/Family/Caregiver Education, Body Mechanics Training PLAN FOR NEXT VISIT: Internal PFM assessment when cleared by OB, assess hips, review HEP Patient demonstrates good understanding of plan of care and treatment. The above goals and plan of care were discussed and agreed upon by patient/family. SUBJECTIVE: Patient reports everything with went really well. She was induced at 8pm on the and then gave on the at 9am. Pushed 18 minutes. First degree tear. No forceps or vacuum. Had some perineal pressure the first couple weeks and burning, but has resolved. She had bleeding for about a month, then mostly stopped, but then started again on Wednesday this week heavier. Does not think she did anything overly strenuous. Had company a lot of the weekend, felt stressed. She has her OB 6 week visit tomorrow. She is using her squatty potty. She has been craving sweets a lot. Not sleeping well. Not getting very good sleep quality yet. Typical breakfast: cereal (eats late) Typical lunch: skips Typical snack: watermelon, bananas, candy Typical dinner: Frozen meals, meat, soup with veggies Muscle weakness Patient Goals: Get back to exercise Functional Limitations: bowel function, physical activities Intake Information: Prescription present Pain: Pain Pain Level: 0 PROMIS Scales 02/15/2024 01/11/2024 Higher is Better Phys Func - Score 44 (mild dysfunction) 44 (mild dysfunction) Phys Func - Percentile 27 27 Self-Eff Symptom - Score 55 (Average) 54 (Average) Self-Eff Symptom - Percentile 69 66 T-scores: mean of general population = 50. 5 points is clinically meaningfully difference Percentiles provide an indication of how the patient's score ranks in relation to the general population. Higher percentile rankings indicate better function/quality of life. 50th percentile is the average of the general population and indicates half of respondents had a worse score. OBJECTIVE MEASURES WITH LEVEL OF F (more content not included)...[facility]05-23-2024 History of Present illness Narrative* Sakina Quintero, PT - 03/30/2024 3:26 PM EDT Program_ID:[id number] Access Code: [email or web address] URL: [email or web address] Visions/ Date: 03-30-2024 Prepared By: Sakina Quintero Program Notes Exercises - Supine Transversus Abdominis Bracing - Hands on Stomach - 1 x daily - 7 x weekly - 1 sets - 10 reps Patient Education - Get To Know Your Pelvic Floor- Female - cc Pelvic Floor Kegels - cc Pelvic Floor - Diaphragmatic Breathing * Sakina Quintero, PT - 03/30/2024 2:49 PM EDT Images from the original note were not included. Episode Visit Count: 1 Therapist That Will Accept/Oversee The Plan Of Care: Sakina Quintero, PT, DPT Start of Care Date: 03/30/24 Onset Date: 02/18/24 Patient Identified by Name and Date of : Yes REHABILITATION AND SPORTS THERAPY PHYSICAL THERAPY EVALUATION PLAN OF CARE: Assessment: Nory Bui presents with chief complaint of muscle weaknes s/p vaginal delivery February 18, 2024 that interferes with bowel function, physical activities . She presents with impairments in coordination, overall function, range of motion, strength, and symptom management. PROMIS (Patient-Reported Outcomes Measurement Information System) scores were reviewed and identified as a rehabilitation concern. Prognosis for therapy is Good due to: current objective clinical presentation, positive past response to therapy, good overall health status, acuteness of condition, good support system/ coping skills . Deficits consistent with state. Further deficits likely to present as patient returns to more normal activity levels. She will benefit from skilled therapy services tomeet the goals established for this plan of care as noted below. Goals for Episode of Care: created on 03/30/24 through 08/17/24 Patient will pass return to running assessment to allow full return to PLOF. Patient will demonstrate increase in bilateral hip strength to 4+/5 during manual muscle testing inorder to improve function for leisure / recreation skills, prior functional tasks, and work tasks. Patient demonstrates independence and compliance with home exercise program. Patient displays improved range of motion, coordination, and muscle dynamics of pelvic floor as evidenced by the ability to lengthen without paradoxical contraction at least 80% of the time to normalize bladder/bowel function; reduce pelvic pain. Patient to increase strength of pelvic floor to Power 3+/5, Endurance 10/10, Repetitions 10/10 , and Fast Reps 8/10 in order to improve bladder/bowel control. Patient to correctly isolate pelvic floor muscles without compensatory patterns of breath holding and abdominal use to improve bladder/bowel control. Patient reports increased fiber intake up to 25-35 grams per day to normalize bowel health. Coordinate pelvic floor with thoracic diaphragm during Functional mobility and change in position to decreasing incontinence and/or pain. Patient Goals: Get back to exercise Planned Interventions, Frequency, and Duration: Current Frequency: 1x every other week Duration: 16 weeks Total Number of Visits Planned: 12 Planned Treatment Interventions: Therapeutic exercise (28442), Manual therapy (10239), Neuromuscular re-education (46686), Self-assisted management (71141), Therapeutic activities (76142), Patient/Family/Caregiver Education, Body Mechanics Training PLAN FOR NEXT VISIT: Internal PFM assessment when cleared by OB, assess hips, review HEP Patient demonstrates good understanding of plan of care and treatment. The above goals and plan of care were discussed and agreed upon by patient/family. SUBJECTIVE: Patient reports everything with went really well. She was induced at 8pm on the and then gave on the at 9am. Pushed 18 minutes. First degree tear. No forceps or vacuum. Had some perineal pressure the first couple weeks and burning, but has resolved. She had bleeding for about a month, then mostly stopped, but then started again on Wednesday this week heavier. Does not think she did anything overly strenuous. Had company a lot of the weekend, felt stressed. She hasher OB 6 week visit tomorrow. She is using her squatty potty. She has been craving sweets a lot. Not sleeping well. Not getting very good sleep quality yet. Typical breakfast: cereal (eats late) Typical lunch: skips Typical snack: watermelon, bananas, candy Typical dinner: Frozen meals, meat, soup with veggies Muscle weakness Patient Goals: Get back to exercise Functional Limitations: bowel function, physical activities Intake Information: Prescription present Pain: Pain Pain Level: 0 PROMIS Scales 02/15/2024 01/11/2024 Higher is Better Phys Func - Score 44 (mild dysfunction) 44 (mild dysfunction) Phys Func - Percentile 27 27 Self-Eff Symptom - Score 55 (Average) 54 (Average) Self-Eff Symptom - Percentile 69 66 T-scores: mean of general population = 50. 5 points is clinically meaningfully difference Percentiles provide an indication of how the patient's score ranks in relation to the general population. Higher percentile rankings indicate better function/quality of life. 50th percentile is the average of the general population and indicates half of respondents had a worse score. OBJECTIVE MEASURES WITH LEVEL OF FUNCTION: Pelvic Floor Menstruation: Has not yet resumed Control Method: none Pregnancies: 1 Births: 1 (baby was 6 lbs) Vaginal Delivery: Tearing Currently ?: Yes Pain with penetration: Not sexually active Urinary/Bowel History : Urinary History, Bowel History Difficulty starting stream: No (after epidural had to use bladder emptying techniques taught in PT initially) Incomplete emptying: No Stress Incontinence: No Urgency: No Nocturia (times per night): (just when feeding baby) Fluid Intake: Water, Coffee Water : Not as much as she should, but more than she was, about 80 oz Coffee: 1 cup Daytime Voiding Interval: Unsure, 3 hours when is home, too long when he is not Difficulty evacuating / Excessive Straining: Yes Incomplete emptying: Sometimes Bowel Movement Frequency: Every 2-3 days Bowel Movement Consistency ([place]) : 3: Like a sausage or snake but with cracks on its surface, 4: Like a sausage or snake, smooth and soft Bloating / abdominal pain: No Fecal incontinence: No Daily Dietary Fiber/ Food Intake: fruit, cereal, veggies Bowel Aides / Supplements: She stopped takiing stool softeners about 2 weeks ago Pelvic Floor Muscle Assessment Consent for pelvic assessment/testing and treatment: Patient was educated regarding pelvic floor physical therapy assessment/treatment which may include pelvic floor and girdle muscle assessment externally or internally (vaginal or rectal approach)., Patient verbalized consent for the above treatment approaches today. Patient understands they have control of the treatment and an opportunity to stop treatment at any time. (external only) Pelvic Floor Muscle Assessment: Muscle Dynamics Contracton Pressure: (slight contraction palpated) Extra-pelvic muscle activity: Abdominal, Holds breath Diastasis Rectus Abdominis: Above Umbilicus, At Umbilicus, Below Umbilicus Above Umbilicus (fingerwidth separation): 0.5 At Umbilicus (fingerwidth separation): 1 Below Umbilicus (fingerwidth separation): 0.5 Underlying STARLA tissue tension: Good Diaphragmatic Breathing : Fair Education: Education Learning Preferences: Demonstration, Explanation, Performance, Printed Materials Barriers: None Learning/educational needs: Lifestyle changes, Health promotion, Home exercise program, Plan of Care, Posture, Body Mechanics Education Provided: Yes, see treatment interventions for education provided Education Provided To: Patient Education Mode/Type: Demonstration, Explanation/Discussion, Literature/Printed Materials, Performance Response to Education/Teach Back: States/Identifies, Return Demonstration, Requires Review/Additional Education TREATMENT: PT Treatment Interventions: Neuromuscular Re-Education, Self-Custodial Management Evaluation Re-evaluation: Performed due to the following change of patient status: Neuromuscular Re-Education: 1: *Pt instructed in diaphragmatic breathing. Place one hand on chest and one hand on abdomen. Inhale through the nose for 4 seconds and exhale through pursed lips for 8 seconds. Allow belly to rise but not chest. Focusing on promoting coordination 2: *PFM contractions 3: *TrA activation with breathing coordination Skilled Intervention: Skilled judgment used to assess appropriate program for balance and coordination activity. Provided written instruction for home program to facilitate proper performance and compliance. Correct performance of home program was facilitated with verbal, visual, and tactile cueing. Patient education as noted. Self-Custodial Management: 1: Recommended patient notify OB of heavier bleeding this week. Explained that while stress can cause increased bleediing, want to make sure there is no other issue 2: *Educated patient on general hydration recommendations and fluiid spacing with breast feeding 3: *Educated patient on the importance of fiber for bowel health, vitamins for energy, and protein for tissue healing. Encouraged more balanced diet. Skilled Intervention: Skilled judgment in the selection of proper modification for activity of daily living/home management based on clinical presentation, deficits, and needs. Educated the patient regarding recommendations and provided written instruction to facilitate compliance. Provided written instruction for activities of daily living techniques to facilitate proper performance and compliance. Reviewed patient specific diagnosis in relation to activities of daily living/home management. Access Code: [email or web address] URL: [email or web address] Visions/ Date: 03/30/2024 Prepared by: Sakina Quintero Exercises - Supine Transversus Abdominis Bracing - Hands on Stomach - 1 x daily - 7 x weekly - 1 sets - 10 reps - 3 hold Patient Education - Get To Know Your Pelvic Floor- Female - cc Pelvic Floor Kegels - cc Pelvic Floor - Diaphragmatic Breathing Billing * Re-Evaluation : 1 Unit Neuromuscular Re-Education Treatment Minutes: 12 Self-Care/Home Management Treatment Minutes: 16 Skilled Treatment Time Minutes (timed and untimed codes): 55 Total Session Time (minutes): 55 Session Start Time : 1449 Session Stop Time : 1544 Sakina Quintero PT Addended to correct billing error. [facility] Progress note Author Mavis Willis [facility] February 19, 2024 9:05am Note Date/Time February 19, 2024 9:0 5am [facility] Medical Records Department [address] [place] [address] Progress Note - OBGYN 02/19/24904 MR#: [id number] Acct: [id number] Name: NORY BUI Rep #:[id number] 2 : 1995 28 From: Mavis Aranda DO PCP: Care Physician,No Primary Status :ADM IN Location: [place] [address] Subjective Subjective Patient doing well without complaints. Tolerating PO. Ambulating and voiding without difficulty. Feeding well. Denies chest pain, shortness of breath, calf pain/swelling, fevers, chills, lightheadedness. Objective Data Objective Data Vital Signs: Vital Signs Temp Pulse Resp BP Pulse Ox O2 Del Method 97.8 F 86 18 118/70 98 Room Air 02/19/24 08:10 02/19/24 08:10 02/19/24 08:10 02/19/24 08:10 02/18/24 07:08 02/19/24 00:46 Oxygen Delivery Method Room Air Weight: 164 lb Body Mass Index (BMI) 26.0 Intake & Output: Intake and Output for Last 24 Hours 02/17/24 02/18/24 02/19/24 23:59 23:59 23:59 Intake Total 4.47 / 4.47 2859.01 / 2859.01 Output Total 2400 / 2400 Balance 4.47 / 4.47 459.01 / 459.01 Lab / Micro Data 02/17/24 18:00 Labs: Laboratory Results - last 24 hr 02/18/24 09:40: POC Glucose 77 02/19/24 05:53: POC Glucose 70 L ROS Constitutional Constitutional: Denies chills, fatigue, fever(s), poor appetite or weakness Eyes Eyes: Denies blurry vision, change in vision, seeing flashes or spots in vision ENT HEENT: Denies dizziness, headache(s), loss taste/smell or sore throat Cardiovascular Cardiovascular: Denies chest pain, dizziness, dyspnea, irregular heart rhythm, palpitations or rapid heart rate Respiratory/Chest Respiratory/Chest: Denies chest tightness, cough, dyspnea or breast pain Gastrointestinal Gastrointestinal: Denies abdominal pain, constipation or vomiting Genitourinary Genitourinary: Denies dysuria or flank pain Musculoskeletal Musculoskeletal: Denies difficulty walking, joint pain, limited range of motion or numbness Neurologic Neurologic: Denies abnormal movements, abnormal speech, dizziness, numbness, seizure-like activity or syncope Psychiatric Psychiatric: Denies anxiety, behavioral changes, change in appetite, confusion, depression or suicidal thoughts Physical Exam Const alert, oriented x3 and no apparent distress General Appearance: cooperative and comfortable Resp normal respiratory effort Cardio regular rate GI normal to inspection, nondistended, normoactive bowel sounds GI Narrative: uterus is firm below umbilicus Palpation: soft Back/Spine no CVA tenderness and thoraco-lumbar ROM normal Extremity normal to inspection, no clubbing, cyanosis or edema, no calf tenderness and no pedal edema Psych mental status grossly normal, thought process normal, cooperative, affect normal, speech normal, activity/motor behavior normal, denies homicidal ideationand denies suicidal ideation Assessment & Plan (1) Vaginal delivery: COMMENT: SM 40 IOL poly gdm girl Idalina (2) Gestational diabetes mellitus (GDM) affecting , antepartum: COMMENT: Diet controlled-36 week growth US 18% plan 40 week IOL for diet controlled GDM PLAN: Plan s/p PPD # 1 1. routine post delivery care 2. breast feeding- support given 3. rh positive 4. rubella immune 5. Patient would like to go home today. will plan for later today and follow up in 6 weeks 02/19/24 0905 <Electronically signed by Mavis Aranda DO> Cosigner Signature (if applicable): CC: ~ Signed [facility] Work Phone: 1(191) 582-490404-12-2024 Discharge summary Author Lori Schneider [facility] February 18, 2024 9:36am Note Date/Time February 18, 2024 9:3 6am [facility] Medical Records Department [address] [place] [address] Instructions for Home/Discharge Instructions 02/18/24 0935 MR#: [id number] Acct: [id number] Name: NORY BUI Rep #:[id number] 2 : 1995 28 From: Lori alaniz MD PCP: Care Physician,No Primary Status :ADM IN Discharge Instructions Follow Up Care Test Results: Test results from this visit will be discussed in further detail at your follow- up appointment, if applicable. Discharge Plan Admission Admit Date/Time: 02/17/24 16:50 Attending Provider: Lori Schneider Primary Care Provider: Care Physician,No Primary Discharge Orders/Prescriptions Prescriptions: No Action PNV-DHA 27 mg iron-1 mg -300 mg capsule 1 cap PO DAILY omega 8-nsw-pbq-fish oil [Fish Oil] 60-90-500 mg capsule 1 cap PO DAILY aspirin 81 mg tablet,delayed release (DR/EC) 81 mg PO DAILY ferrous sulfate [Feosol] 325 mg (65 mg iron) tablet 325 mg PO DAILY (DME) Blood Glucose Test Strip See Rx Instructions .MEDSUPPLY Qty: 120 5RF Rx Instructions: As directed-fasting & 2 hr post meals (DME) blood-glucose meter Misc See Rx Instructions .MEDSUPPLY Qty: 1 0RF Rx Instructions: As directed- Test fasting and 2 hours after meals (DME) lancets Misc See Rx Instructions .MEDSUPPLY Qty: 200 5RF Rx Instructions: As directed-fasting & 2 hr post meals Referrals / Follow Up: Care Physician,No Primary [Primary Care Provider] - Disposition Disposition (needs filled in before D/C Order can be placed): Home, Self Care 02/18/24 0936<Electronically signed by Lori Schneider MD>Lori Schneider MD CC: No Primary Care Physician ~ Signed [facility] Work Phone: 1(847) 356-631204-12-2024 Procedure [facility] 02-17-2024 History and physical note Author Lori Schneider [facility] February 17, 2024 8:08pm Note Date/Time February 17, 2024 5:5 2pm [facility] Medical Records Department [address] [place] [address] H&P Exam - SUPERVISOR ROLLING ROOM 02/17/24 1749 MR#: [id number] Acct: [id number] Name: NORY BUI Rep #:[id number] 2 : 1995 28 From: Lori alaniz MD PCP: Care Physician,No Primary Status :ADM IN Location: [id number] HPI - General General Date of Admission: 02/17/24 HPI Narrative ONRY BUI, is a 28 F who presents for IOL secondary to polyhydramnios and diabetes. her blood sugars have been well controlled. Maternal Data Information RAMÓN Calculator Estimated Delivery Date Method Current WG Current Estimate 02/19/24 Ultrasound #1 39w 5d Other Estimates 02/25/24 LMP (Certain) 38w 6d PFSH PFS Medical History (Updated 02/17/24 @ 18:[address] Lori Schneider MD) Anemia affecting Asthma Gestational diabetes Polyhydramnios Successful external cephalic version Home Medications multivitamin no.47-iron fum 27 mg-folate no.1 1 mg-dha 300 mg capsule (PNV- DHA)cap PO 07/06/23 [History Last Taken Unknown] omega 4-mxk-bic-fish oil 60 mg-90 mg-500 mg capsule (Fish Oil) 1 cap PO DAILY 07/06/23 [History Last Taken Unknown] ondansetron 4 mg disintegrating tablet 4 mg PO Q6H PRN nausea and vomiting #30 tabs 07/14/23 [Rx Last Taken Unknown] promethazine 25 mg tablet 25 mg PO ONCE #30 tabs 09/10/23 [Rx Last Taken Unknown] blood sugar diagnostic (Blood Glucose Test strips) #120 ea 12/09/23 [Rx Last Taken Unknown] blood-glucose meter #1 ea 12/09/23 [Rx Last Taken Unknown] lancets #200 ea 12/09/23 [Rx Last Taken Unknown] aspirin 81 mg tablet,delayed release 81 mg PO DAILY 01/12/24 [History Last Taken Unknown] Allergy/AdvReac Type Severity Reaction Status Date / Time No Known Allergies Allergy Verified 02/17/24 15:59 Family History Grandmother Cancer Breast cancer Rectal cancer, Onset Age: 79 maternal Breast cancer Grandfather Cancer, Onset Age: 50 Maternal- testicular Uncle Cancer, Onset Age: 16 Brain- Maternal Social History adopted: No household members: spouse current occupational status: employed current occupation: RN- [employer] pets and animals: Yes pets and animals: dog(s) history of recent travel: Yes ([facility]IL- [facility], [facility] & [facility]) out of state: Yes out of country: No sexually active: Yes Smoking Status: Never smoker alcohol intake: current alcohol intake frequency: holidays/special occasions only details: NOT WHILE substance use type: does not use diet: lactose free well-balanced diet: daily or most days caffeine: No eating out: 4 or more times/week during the past year weight has: increased > 10 lbs what type of physical activity do you participate in: none miguel/latter day: Hindu seatbelt use: always do you feel safe at home: Yes additional social history: - Siva History 1 Elective abortions Hx Para 0 Spontaneous abortions Hx # Term Pregnancies Ectopic pregnancies Hx # Pregnancies Multiple births # of living children Visit Details Expected Delivery Route/Plan Labor Preferences- CB/BF classes: scheduled labor support person: Siva labor intervention preferences: [] pain management options preferred: epidural cut cord/dad catch: yes : yes PP control planned: discussed discussed possible routes of delivery and associated risks: [] special requests: [] Plans Covid status: [] Flu vaccine: DONE Tdap vaccine: DONE Rhogam: NA LARC form signed: yes Problem list reviewed and updated with the most current plan of care details and appropriate orders placed. Relevant counseling for the gestational age provided. Continue routine care and follow up unless otherwise noted in visit notes/problem list details OB Flowsheet Initial Weight: 145 lb Date -?-?-?-?-?-?-?-?-?-?-?-?- EGA Weight BP Urine Prot -?-?-?-?-?-?-?-?-?-?-?-?- Glucose FHR FuHt Pres Dilation -?-?-?-?-?-?-?-?-?-?-?-?- Effaced St Visit Note 07/14/23 -?-?-?-?-?-?-?-?-?--?-?-?- 8w 4d 145 lb 4 oz (+4 oz) 116/72 -?-?-?-?-?-?-?-?-?-?-?-?- 165 -?-?-?-?-?-?-?-?-?-?-?-?- JV- CRL off by o usha 5 days. New ramón given. rivka sent to pharmacy. declines NIPT and desires carrier screen. 08/11/23 -?-?-?-?-?-?-?-?-?-?-?-?- 12w 4d 142 lb (-3 lb) 106/69 -?-?-?-?-?-?-?-?-?-?-?-?- 157 -?-?-?-?-?-?-?-?-?-?-?-?- LC- no vb/crampi ng. [facility] anatomy ordered. LC- no vb/cramping. [facility] marvin amy ordered. declines afp . 09/06/23 -?-?-?-?-?-?-?-?-?-?-?-?- 16w 2d 145 lb (+0 oz) 112/74 Negative -?-?-?-?-?-?-?-?-?-?-?-?- Negative 147 -?-?-?-?-?-?-?-?-?-?-?-?- MH-No VB. Nausea improving. Denies concerns 10/05/23 -?-?-?-?-?-?-?-?-?-?-?-?- 20w 3d 146 lb (+16 oz) 111/76 -?-?-?-?-?-?-?-?-?-?-?-?- 140 20 -?-?-?-?-?-?-?-?-?-?-?-?- kw- no vb/crampi ng. noticing fm. on asa 81mg for covid during . NIPT today for possible choroid plexus cysts found on US. Report not read yet but US tech indicated measurements were taken when pt asked. pt reassured and discussed in depth. 11/05/23 -?-?-?-?-?-?-?-?-?-?-?-?- 24w 6d 153 lb 8 oz (+8 lb 8 oz) 121/80 Negative -?-?-?-?-?-?-?-?-?-?-?-?- Negative 143 24 -?-?-?-?-?-?-?-?--?-?-?-?- LC- no vb/ctc/lo f. good fm. 28 week labs ordered. desires to do pelvic floor pt prior to delivery for preparation 11/29/23 -?-?-?-?-?-?-?-?-?-?-?-?- 28w 2d 157 lb (+12 lb) 117/78 -?-?-?-?-?-?-?-?-?-?-?-?- 140 29 -?-?-?-?-?-?-?-?-?-?-?-?- SM- no vb lof go od fm no regular ctx SM- no vb lof good fm no reg ular ctx DISCUSSED 1 hr results 12/16/23 -?-?-?-?-?-?-?-?-?-?-?-?- 30w 5d 158 lb 6 oz (+13 lb 6 oz) 120/80 Negative -?-?-?-?-?-?-?-?-?-?-?-?- Negative 140 29 -?-?-?-?-?-?-?-?-?-?-?-?- KW- no vb/lof/ct x. good fm. Discussed 3 hour results. Blood sugars under parameters. doing well. will plan 36 week US. 01/03/24 -?-?-?-?-?-?-?-?-?-?-?-?- 33w 2d 155 lb 6 oz (+10 lb 6 oz) 108/68 Negative -?-?-?-?-?-?-?-?-?-?-?-?- Negative 143 32 -?-?-?-?-?-?-?-?-?-?-?-?- MH-NO VB, LOF. G ood FM. Glucose readings WNL. Had GI flu last week, reassured concerning weight loss 01/12/24 -?-?-?-?-?-?-?-?-?-?-?-?- 34w 4d 156 lb 4 oz (+11 lb 4 oz) 110/70 Trace -?-?-?-?-?-?-?-?-?-?-?-?- Negative 145 32 -?-?-?-?-?-?-?-?-?-?-?-?- JV- no lof, vagi nal bleeding, or dec fm. plan growth scan in 2 weeks. JV- no lof, vaginal bleeding , or dec fm. plan growth scan in 2 weeks. all glucose levels are normal. 01/27/24 -?-?-?-?-?-?-?-?-?-?-?-?- 36w 5d 163 lb 4 oz (+18 lb 4 oz) 124/75 Negative -?-?-?-?-?-?-?-?-?-?-?-?- Negative 135 37 Cephalic -?-?-?-?-?-?-?-?-?-?-?-?- KW- no vb/lof/ct x. good fm. no VE today. GBS today. 02/02/24 -?-?-?-?-?-?-?-?-?-?-?-?- 37w 4d 163 lb 8 oz (+18 lb 8 oz) 110/72 Negative -?-?-?-?-?-?-?-?-?-?-?-?- Negative 145 33 Cephalic 1 -?-?-?-?-?-?-?-?-?-?-?-?- 50 -3 KW- no vb/ lof/reg ctx. good fm. GBS neg. Growth US ordered for S<D 02/10/24 -?-?-?-?-?-?-?-?-?-?-?-?- 38w 5d 163 lb 6.4 oz (+18 lb 6.4 oz) 119/80 -?-?-?-?-?-?-?-?-?-?-?-?- 123 33 33.5 Cephalic -?-?-?-?-?-?-?-?-?-?-?-?- LC-no vb/ctx/lof . good fm. cephalic on ultrasound. LC-no vb/ctx/lof. good fm. c ephalic on ultrasound. adequate growth on us on 02/02. LC-no vb/ctx/lof. good fm. c ephalic on ultrasound. adequate growth on us on 02/02. glucose controlled. declines ve. LC-no vb/ctx/lof. good fm. c ephalic on ultrasound. adequate growth on us on 02/02. glucose controlled. declines ve.reviewed likely iol around 40 weeks for GDM diet controlled. 02/17/24 -?-?-?-?-?-?-?-?-?-?-?-?- 39w 5d 165 lb (+20 lb) 116/82 Negative -?-?-?-?-?-?-?-?-?-?-?-?- Negative 140 35 Cephalic 2 -?-?-?-?-?-?-?-?-?-?-?-?- 60 -3 KW-no vb/l of/ctx. good fm. REMI 26.8 per SM. IOL tonight with cytotec NST FHR Rate Baby A Baseline: 140 Variability:: Moderate Accelerations:: 15 x 15 Decelerations:: None NST Reactive:: Yes FHR Category:: Category I Uterine Activity:: q3-5 ROS Constitutional Constitutional: Reports systems reviewed and no addt'l complaints, except as documented ENT HEENT: Reports systems reviewed and no addt'l complaints, except as documented Cardiovascular Cardiovascular: Reports systems reviewed and no addt'l complaints, except as documented Respiratory/Chest Respiratory/Chest: Reports systems reviewed and no addt'l complaints, except as documented Gastrointestinal Gastrointestinal: Reports systems reviewed and no addt'l complaints, except as documented and nausea; Denies abdominal pain Genitourinary Genitourinary: Reports systems reviewed and no addt'l complaints, except as documented, contractions Details: present and frequency (regular ) and movement Details: present Musculoskeletal Musculoskeletal: Reports systems reviewed and no addt'l complaints, except as documented Integumentary Integumentary: Reports as per HPI Neurologic Neurologic: Reports systems reviewed and no addt'l complaints, except as documented Endocrine Endocrinology: Reports systems reviewed and no addt'l complaints, except as documented Vital Signs Vital Signs Vital Signs: 02/17/24 17:22 02/17/24 17:22 Pulse Rate 83 Blood Pressure 120/80 BP Systolic 120 BP Diastolic 80 Weight Weight: 164 lb Body Mass Index (BMI) 26.0 Physical Exam Const alert, oriented x3 and healthy appearing Constitutional Narrative: uncomfortable with contractions HEENT normocephalic and moist oral mucous membranes Head and Scalp: atraumatic Neck full ROM, no lymphadenopathy, supple and thyroid normal General: trachea midline Thyroid: thyroid normal Lymph Lymphatic: no lymphadenopathy noted Chest inspection of chest normal Resp normal respiratory effort Cardio regular rate GI normal to inspection, nondistended, normoactive bowel sounds, soft to palpation and non-tender Inspection: gravid external exam normal Bimanual Exam - Vag & Uterus: uterus non-tender Manual OB Exam: estimated gestational size appropriate, presentation cephalic, dilated, effaced and station Extremity normal to inspection General Extremity: Negative for edema Skin no rashes or lesions noted Neuro deep tendon reflexes 2+ bilaterally Motor Exam: strength 5/5 throughout and clonus absent Psych mental status grossly normal Labs Labs Labs: Blood Type A POSITIVE Antibody Screen NEGATIVE Hct 33.9 % (37-47) L Hgb 11.3 g/dL (12.0-15.0) L Obstetrics Ultrasound Syphilis Total Ab Non-reactive Rubella IgG Antibody Reactive (Nonreactive) Hep Bs Antigen Non-Reactive (Nonreactive) Hepatitis C Antibody Non-Reactive (Nonreactive) Chlamydia DNA (DORIS) Negative (Negative) N.gonorrhoeae DNA (DORIS) Negative (Negative) HIV 1&2 Antibody Non-Reactive (Nonreactive) Glucose 1 Hr 50 gm 176 mg/dL (70-140) H Gest Glucose Tolerance MG/DL Assessment & Plan (1) Uterine size date discrepancy : COMMENT: S<D . 37.4 on us/ no biometrics ordered. (2) Gestational diabetes mellitus (GDM) affecting , antepartum: COMMENT: Diet controlled-36 week growth US 18% plan 40 week IOL for diet controlled GDM (3) Anemia affecting in third trimester: COMMENT: iron recommended repeat cbc in 4 weeks. 01/03:resolved (4) Supervision of high-risk : QUALIFIERS: Trimester: second trimester Qualified Code(s): O09.92 - Supervision of high risk , unspecified, second trimester COMMENT: PRR , RAMÓN 02/25/24 surprise Siva (5) : QUALIFIERS: Weeks of gestation: 39 weeks Qualified Code(s): Z3A.39 - 39 weeks gestation of COMMENT: GBS neg, NIPT low risk, carrier testing neg. . afp declined. normal anatomy (6) Polyhydramnios: COMMENT: proceed with IOL (7) Gestational diabetes: PLAN: Plan Patient presents IOL, plan management for with pit fb. Pain management: plans epidural. GBS negative. Management of any complications: poly and diabetes I have reviewed the [facility] and made any clinically relevant updates. 02/17/241851 <Electronically signed by Lori Schneider MD> Cosigner Signature (if applicable): CC: Dr. Lori Schneider MD; No Primary Care Physician~ Signed ADDENDUM by Dr. Lori Schneider MD on 02/17/24 at 2007 Addendum decision for fb pit due it amount of contractions, risk of hyperstim with cytotec. proceed with placement 02/17/242007<Electronically signed by Lori Schneider MD> Cosigner Signature (if applicable): cc: Dr. Lori Schneider MD; No Primary Care Physician ~* Signed [facility] Work Phone: 1(545) 656-449704-09-2024 NoteHNO ID: [id number] Author: SAKINA QUINTERO PT Service: ? Author Type: Physical Therapist Type: Progress Notes Filed: 02/15/2024 09:25 Note Text: Episode Visit Count: 5 Therapist That Will Accept/Oversee The Plan Of Care: Sakina Quintero PT, DPT Start of Care Date: 01/03/24 Onset Date: 06/28/23 Patient Identified by Name and Date of : Yes REHABILITATION AND SPORTS THERAPY PHYSICAL THERAPY TREATMENT NOTE ASSESSMENT: Nory Bui tolerated the session with no issues. She demonstrated improvements in coordination of pelvic lengthening with improved consistency. Improved pressure management in sidelying. Verbalized understanding of education provided. The patient will continue to benefit from ongoing skilled physical therapy to progress toward set goals. PLAN FOR NEXT VISIT: Hold until SUBJECTIVE: Patient reports she thinks baby is head down again. Sometime between 36 and 37 weeks baby flipped, then went to doctor and did a version, easiest doc had ever done. They think her baby is small but still healthy. Reports she has been feeling cramping since last week, but not contractions. Due Wednesday. She has been eating the dates and drinking rapsberry leaf tea and primrose oil. She has made her playlists, sitting on the ball a lot, packed her hospital bag. She is feeling pretty good about pushing mechanics. The pelvic lengthening and squatty potty have helped bowel movements. Pain: Pain Pain Level: (doable for another week) Pain Location: Pubic Frequency: Intermittent (getting out of bed, using proper mechanics helps) OBJECTIVE MEASURES WITH LEVEL OF FUNCTION: Pelvic Floor Muscle Assessment Consent for pelvic assessment/testing and treatment: Patient was educated regarding pelvic floor physical therapy assessment/treatment which may include pelvic floor and girdle muscle assessment externally or internally (vaginal or rectal approach)., Patient verbalized consent for the above treatment approaches today. Patient understands they have control of the treatment and an opportunity to stop treatment at any time. Pelvic Floor Muscle Assessment: Muscle Dynamics Extra-pelvic muscle activity: Abdominal Range of Motion: Normal Ability to Lengthen pelvic floor: Yes Paradoxical Contraction: No Diaphragmatic Breathing : Good TREATMENT: Neuromuscular Re-Education: 1: Internal PFM assessment 2: Pt instructed in diaphragmatic breathing. Place one hand on chest and one hand on abdomen. Inhale through the nose for 4 seconds and exhale through pursed lips for 8 seconds. Allow belly to rise but not chest. Focusing on promoting coordination 3: PFM lengthening with breathing coordination 4: PFM lengthening with breathing coordination and holds 5: PFM lengthening with breathing coordination, holds, and abdominal activation 6: PFM lengthening with breathing coordination and ab activation in sidelying Skilled Intervention: Skilled judgment used to assess appropriate program for balance and coordination activity. Correct performance of home program was facilitated with verbal, visual, and tactile cueing. Patient education as noted. Self-Custodial Management: 1: Re-educated patient on benefit of staying active in labor, reviewed positional options 2: Educated patient impact of of tissue healing and laxity. Educated on /bottle feeding postures to prevent neck, wrist, and back pain. Educated on hydration recommendations when . 3: Educated patient on various information. Educated on proper lifting and carrying mechanics for care, housework, and transfers/bed mobility. Educated on return to exercise and running timeline. Skilled Intervention: Skilled judgment in the selection of proper modification for activity of daily living/home management based on clinical presentation, deficits, and needs. Educated the patient regarding recommendations and provided written instruction to facilitate compliance. Provided written instruction for activities of daily living techniques to facilitate proper performance and compliance. Reviewed patient specific diagnosis in relation to activities of daily living/home management. Billing Neuromuscular Re-Education Treatment Minutes: 31 Self-Care/Home Management Treatment Minutes: 38 Skilled Treatment Time Minutes (timed and untimed codes): 69 Total Session Time (minutes): 69 Session Start Time : 814 Session Stop Time : 923 Sakina Quintero [facility]04-09-2024 History of Present illness Narrative* Sakina Quintero, PT - 02/15/2024 8:16 AM EDT Episode Visit Count: 5 Therapist That Will Accept/Oversee The Plan Of Care: Sakina Quintero PT, DPT Start of Care Date: 01/03/24 Onset Date: 06/28/23 Patient Identified by Name and Date of : Yes REHABILITATION AND SPORTS THERAPY PHYSICAL THERAPY TREATMENT NOTE ASSESSMENT: Nory Bui tolerated the session with no issues. She demonstrated improvements in coordination of pelvic lengthening with improved consistency. Improved pressure management in sidelying. Verbalized understanding of education provided. The patient will continue to benefit from ongoing skilled physical therapy to progress toward set goals. PLAN FOR NEXT VISIT: Hold until SUBJECTIVE: Patient reports she thinks baby is head down again. Sometime between 36 and 37 weeks baby flipped, then went to doctor and did a version, easiest doc had ever done. They think her baby issmall but still healthy. Reports she has been feeling cramping since last week, but not contractions. Due Wednesday. She has been eating the dates and drinking rapsberry leaf tea and primrose oil. Maranda made her playlists, sitting on the ball a lot, packed her hospital bag. She is feeling pretty good about pushing mechanics. The pelvic lengthening and squatty potty have helped bowel movements. Pain: Pain Pain Level: (doable for another week) Pain Location: Pubic Frequency: Intermittent (getting out of bed, using proper mechanics helps) OBJECTIVE MEASURES WITH LEVEL OF FUNCTION: Pelvic Floor Muscle Assessment Consent for pelvic assessment/testing and treatment: Patient was educated regarding pelvic floor physical therapy assessment/treatment which may include pelvic floor and girdle muscle assessment externally or internally (vaginal or rectal approach)., Patient verbalized consent for the above treatment approaches today. Patient understands they have control of the treatment and an opportunity to stop treatment at any time. Pelvic Floor Muscle Assessment: Muscle Dynamics Extra-pelvic muscle activity: Abdominal Range of Motion: Normal Ability to Lengthen pelvic floor: Yes Paradoxical Contraction: No Diaphragmatic Breathing : Good TREATMENT: Neuromuscular Re-Education: 1: Internal PFM assessment 2: Pt instructed in diaphragmatic breathing. Place one hand on chest and one hand on abdomen. Inhale through the nose for 4 seconds and exhale through pursed lips for 8 seconds. Allow belly to rise but not chest. Focusing on promoting coordination 3: PFM lengthening with breathing coordination 4: PFM lengthening with breathing coordination and holds 5: PFM lengthening with breathing coordination, holds, and abdominal activation 6: PFM lengthening with breathing coordination and ab activation in sidelying Skilled Intervention: Skilled judgment used to assess appropriate program for balance and coordination activity. Correct performance of home program was facilitated with verbal, visual, and tactile cueing. Patient education as noted. Self-Custodial Management: 1: Re-educated patient on benefit of staying active in labor, reviewed positional options 2: Educated patient impact of of tissue healing and laxity. Educated on /bottle feeding postures to prevent neck, wrist, and back pain. Educated on hydration recommendations when . 3: Educated patient on various information. Educated on proper lifting and carrying mechanics for care, housework, and transfers/bed mobility. Educated on return to exercise and running timeline. Skilled Intervention: Skilled judgment in the selection of proper modification for activity of daily living/home management based on clinical presentation, deficits, and needs. Educated the patient regarding recommendations and provided written instruction to facilitate compliance. Provided written instruction for activities of daily living techniques to facilitate proper performance and compliance. Reviewed patient specific diagnosis in relation to activities of daily living/home management. Billing Neuromuscular Re-Education Treatment Minutes: 31 Self-Care/Home Management Treatment Minutes: 38 Skilled Treatment Time Minutes (timed and untimed codes): 69 Total Session Time (minutes): 69 Session Start Time : 08 Session Stop Time : 923 Sakina Quintero PT [facility]24 NoteHNO ID: [id number] Author: SAKINA QUINTERO PT Service: ? Author Type: Physical Therapist Type: Progress Notes Filed: 01/31/2024 12:20 Note Text: Episode Visit Count: 4 Therapist That Will Accept/Oversee The Plan Of Care: Sakina Quintero PT, DPT Start of Care Date: 01/03/24 Onset Date: 06/28/23 Patient Identified by Name and Date of : Yes REHABILITATION AND SPORTS THERAPY PHYSICAL THERAPY TREATMENT NOTE ASSESSMENT: Nory Bui tolerated the session with no issues. She demonstrated good understanding of education provided and pain management strategies and positional techniques. The patient will continue to benefit from ongoing skilled physical therapy to progress toward set goals. PLAN FOR NEXT VISIT: timeline,s postures, pushing mechanics SUBJECTIVE: present for visit. Patient reports the pubic pain has been doing good recently. She had a couple bad days, but not enough consistent pain to buy the SI belt. Worse if she does not use proper body mechanics. Sacrum has also been fine too. Last two weeks also has not been getting as nauseous. Had her baby shower over the weekend. Pain: Pain Pain Level: (see subjective) OBJECTIVE MEASURES WITH LEVEL OF FUNCTION: Good lumbosacral mobility TREATMENT: Self-Custodial Management: 1: Detailed education regarding various labor positional strategies. Educated on use of hip motion to open inlet/outlet depending on stage of labor. Explained the goals of stage 1 labor are to bring the baby?s head onto the cervix and allow for proper dilation. This is best achieved by allowing gravity to assist stage 1 labor to bring baby onto cervix, using upright positions and movement. It is important to allow the inlet/top of pelvis to open and allow baby to descend into the canal, which can be helped with hip external rotation and posterior pelvic tilts. Stage 2 goal is to allow baby to descend through the canal to be born. This can be aided with positions to promote opening the outlet/bottom of pelvis, including hip internal rotation. Demonstrated and instructed patient in various positional options, including ones which can be done with an epidural, that allow these goals to be met and reduce risk of tearing, delayed labor, and fracture. Demonstrated and instructed in standing lunge, rocking hug, quadruped, physioball sit, supported squat, dangle squat, sidelying, and tall kneeling for stage 1. Demonstrated and instructed in modified dorsal lithotomy, sidelying, quadruped, and squat bar for stage 2. Educated on ischial and ilial compression, belly hold, pelvic rocking, and towel support for pain management. Skilled Intervention: Skilled judgment in the selection of proper modification for activity of daily living/home management based on clinical presentation, deficits, and needs. Educated the patient regarding recommendations and provided written instruction to facilitate compliance. Provided written instruction for activities of daily living techniques to facilitate proper performance and compliance. Reviewed patient specific diagnosis in relation to activities of daily living/home management. Billing Self-Care/Home Management Treatment Minutes: 49 Skilled Treatment Time Minutes (timed and untimed codes): 49 Total Session Time (minutes): 49 Session Start Time : 1130 Session Stop Time : 1219 Sakina Quintero [facility]03-25-2024 History of Present illness Narrative* Sakina Quintero PT - 01/31/2024 11:30 AM EDT Episode Visit Count: 4 Therapist That Will Accept/Oversee The Plan Of Care: Sakina Quintero PT, DPT Start of Care Date: 01/03/24 Onset Date: 06/28/23 Patient Identified by Name and Date of : Yes REHABILITATION AND SPORTS THERAPY PHYSICAL THERAPY TREATMENT NOTE ASSESSMENT: Nory Bui tolerated the session with no issues. She demonstrated good understanding of education provided and pain management strategies and positional techniques. The patient will continue to benefit from ongoing skilled physical therapy to progress toward set goals. PLAN FOR NEXT VISIT: timeline,s postures, pushing mechanics SUBJECTIVE: present for visit. Patient reports the pubic pain has been doing good recently.She had a couple bad days, but not enough consistent pain to buy the SI belt. Worse if she does notuse proper body mechanics. Sacrum has also been fine too. Last two weeks also has not been getting as nauseous. Had her baby shower over the weekend. Pain: Pain Pain Level: (see subjective) OBJECTIVE MEASURES WITH LEVEL OF FUNCTION: Good lumbosacral mobility TREATMENT: Self-Custodial Management: 1: Detailed education regarding various labor positional strategies. Educated on use of hip motion to open inlet/outlet depending on stage of labor. Explained the goals of stage 1 labor are to bring the baby s head onto the cervix and allow for proper dilation. This is best achieved by allowing gravity to assist stage 1 labor to bring baby onto cervix, using upright positions and movement. It is important to allow the inlet/top of pelvis to open and allow baby to descend into the canal, which can be helped with hip external rotation and posterior pelvic tilts. Stage 2 goal is to allow baby to descend through the canal to be born. This can be aided with positions to promote opening the outlet/bottom of pelvis, including hip internal rotation. Demonstrated and instructed patientin various positional options, including ones which can be done with an epidural, that allow these goals to be met and reduce risk of tearing, delayed labor, and fracture. Demonstrated and instructedin standing lunge, rocking hug, quadruped, physioball sit, supported squat, dangle squat, sidelying, and tall kneeling for stage 1. Demonstrated and instructed in modified dorsal lithotomy, sidelying, quadruped, and squat bar for stage 2. Educated on ischial and ilial compression, belly hold, pelvic rocking, and towel support for pain management. Skilled Intervention: Skilled judgment in the selection of proper modification for activity of daily living/home management based on clinical presentation, deficits, and needs. Educated the patient regarding recommendations and provided written instruction to facilitate compliance. Provided written instruction for activities of daily living techniques to facilitate proper performance and compliance. Reviewed patient specific diagnosis in relation to activities of daily living/home management. Billing Self-Care/Home Management Treatment Minutes: 49 Skilled Treatment Time Minutes (timed and untimed codes): 49 Total Session Time (minutes): 49 Session Start Time : 1130 Session Stop Time : 1219 Saknia Quintero PT documented in this encounterPark[facility]03-12-[facility]24 NoteHNO ID: [id number] Author: SAKINA QUINTERO PT Service: ? Author Type: Physical Therapist Type: Progress Notes Filed: 01/18/2024 14:09 Note Text: Episode Visit Count: 3 Therapist That Will Accept/Oversee The Plan Of Care: Sakina Quintero PT, DPT Start of Care Date: 01/03/24 Onset Date: 06/28/23 Patient Identified by Name and Date of : Yes REHABILITATION AND SPORTS THERAPY PHYSICAL THERAPY TREATMENT NOTE ASSESSMENT: Noyr Bui tolerated the session with no issues. She demonstrated improvements in lengthening technique, but struggled to prevent paradoxical contraction with abdominal activation. Verbalized understanding of education provided.. The patient will continue to benefit from ongoing skilled physical therapy to progress toward set goals. PLAN FOR NEXT VISIT: LANDD positions with partner, pushing progression, ed SUBJECTIVE: Patient states the pubic pain definitely correlates with working and being on her feet. Notices a big difference when she has a few days off. Reports she is getting jose juan horses and cramps ii right calf. Seems to be worse with walking up and down stairs. They are doing the perineal massage at home and mostly doing stretches (every other day). Pain: Pain Pain Level: (not as bad yesterday) Pain Location: Pubic Additional Pain Information : Location 2 Pain Level 2: (yesterday it hurt bad) Pain Location 2: Sacrum Description 2: Shooting OBJECTIVE MEASURES WITH LEVEL OF FUNCTION: Pelvic Floor Muscle Assessment Consent for pelvic assessment/testing and treatment: Patient was educated regarding pelvic floor physical therapy assessment/treatment which may include pelvic floor and girdle muscle assessment externally or internally (vaginal or rectal approach)., Patient verbalized consent for the above treatment approaches today. Patient understands they have control of the treatment and an opportunity to stop treatment at any time. Pelvic Floor Muscle Assessment: Muscle Dynamics Extra-pelvic muscle activity: Abdominal Range of Motion: Decreased Ability to Lengthen pelvic floor: Difficulty at first, but improves with cueing and practice Paradoxical Contraction: Intermittent Breathing Pattern : Intermittently pushes abdomen out Diaphragmatic Breathing : Fair Pelvic Floor Manual Assessment Pelvic Floor Tenderness/Hyperactivity: Tested Vaginally in Tested Vaginally in : Supine/hooklying Bulbocavernosus: Bilateral (min-mod tension) Superficial transverse perineal: Bilateral (min-mod tension) TREATMENT: Neuromuscular Re-Education: 1: Internal PFM assessment 2: Pt instructed in diaphragmatic breathing. Place one hand on chest and one hand on abdomen. Inhale through the nose for 4 seconds and exhale through pursed lips for 8 seconds. Allow belly to rise but not chest. Focusing on promoting coordination 3: PFM lengthening with breathing coordination 4: PFM lengthening with breathing coordination and holds 5: PFM lengthening with breathing coordination, holds, and abdominal activation Skilled Intervention: Skilled judgment used to assess appropriate program for balance and coordination activity. Provided written instruction for home program to facilitate proper performance and compliance. Correct performance of home program was facilitated with verbal, visual, and tactile cueing. Patient education as noted. Self-Custodial Management: 1: Educated patient on potential benefit of SI belt for sacrum and pubic pain. Trial of donning serola with ambulation and stairs. Positive effect reported, but today not a bad day 2: Educated patient to try to prepare a calming stimulus for labor. Consider music, scents, or visual cues that help them feel calm and relaxed. If they have a favorite scent, consider spraying a cloth with it and using that to sniff as a way to calm in labor, or a markie diffuser. If they prefer music, create a calming playlist as part of the plan and bring headphones. If they prefer visuals, find a picture to bring with them. For comfortable temperature, also consider bringing a small fan or a cozy robe/blanket from home. May also consider meditation to help compartmentalize pain. Educated patient on the 3 R's of calm birthing-- relaxation, rhythm, and ritual. Educated patient on the effect of catecholamines and stress on labor and potential delay. Skilled Intervention: Skilled judgment in the selection of proper modification for activity of daily living/home management based on clinical presentation, deficits, and needs. Educated the patient regarding recommendations and provided written instruction to facilitate compliance. Provided written instruction for activities of daily living techniques to facilitate proper performance and compliance. Reviewed patient specific diagnosis in relation to activities of daily living/home management. Billing Neuromuscular Re-Education Tr (more content not included)...[facility]03-12-2024 History of Present illness Narrative* Sakina Quintero, PT - 01/18/2024 1:05 PM EDT Episode Visit Count: 3 Therapist That Will Accept/Oversee The Plan Of Care: Sakina Quintero, PT, DPT Start of Care Date: 01/03/24 Onset Date: 06/28/23 Patient Identified by Name and Date of : Yes REHABILITATION AND SPORTS THERAPY PHYSICAL THERAPY TREATMENT NOTE ASSESSMENT: Nory Bui tolerated the session with no issues. She demonstrated improvements in lengthening technique, but struggled to prevent paradoxical contraction with abdominal activation. Verbalized understanding of education provided.. The patient will continue to benefit from ongoing skilled physical therapy to progress toward set goals. PLAN FOR NEXT VISIT: L&D positions with partner, pushing progression, ed SUBJECTIVE: Patient states the pubic pain definitely correlates with working and being on her feet.Notices a big difference when she has a few days off. Reports she is getting jose juan horses and cramps ii right calf. Seems to be worse with walking up and down stairs. They are doing the perineal massage at home and mostly doing stretches (every other day). Pain: Pain Pain Level: (not as bad yesterday) Pain Location: Pubic Additional Pain Information : Location 2 Pain Level 2: (yesterday it hurt bad) Pain Location 2: Sacrum Description 2: Shooting OBJECTIVE MEASURES WITH LEVEL OF FUNCTION: Pelvic Floor Muscle Assessment Consent for pelvic assessment/testing and treatment: Patient was educated regarding pelvic floor physical therapy assessment/treatment which may include pelvic floor and girdle muscle assessment externally or internally (vaginal or rectal approach)., Patient verbalized consent for the above treatment approaches today. Patient understands they have control of the treatment and an opportunity to stop treatment at any time. Pelvic Floor Muscle Assessment: Muscle Dynamics Extra-pelvic muscle activity: Abdominal Range of Motion: Decreased Ability to Lengthen pelvic floor: Difficulty at first, but improves with cueing and practice Paradoxical Contraction: Intermittent Breathing Pattern : Intermittently pushes abdomen out Diaphragmatic Breathing : Fair Pelvic Floor Manual Assessment Pelvic Floor Tenderness/Hyperactivity: Tested Vaginally in Tested Vaginally in : Supine/hooklying Bulbocavernosus: Bilateral (min-mod tension) Superficial transverse perineal: Bilateral (min-mod tension) TREATMENT: Neuromuscular Re-Education: 1: Internal PFM assessment 2: Pt instructed in diaphragmatic breathing. Place one hand on chest and one hand on abdomen. Inhale through the nose for 4 seconds and exhale through pursed lips for 8 seconds. Allow belly to rise but not chest. Focusing on promoting coordination 3: PFM lengthening with breathing coordination 4: PFM lengthening with breathing coordination and holds 5: PFM lengthening with breathing coordination, holds, and abdominal activation Skilled Intervention: Skilled judgment used to assess appropriate program for balance and coordination activity. Provided written instruction for home program to facilitate proper performance and compliance. Correct performance of home program was facilitated with verbal, visual, and tactile cueing. Patient education as noted. Self-Custodial Management: 1: Educated patient on potential benefit of SI belt for sacrum and pubic pain. Trial of donning serola with ambulation and stairs. Positive effect reported, but today not a bad day 2: Educated patient to try to prepare a calming stimulus for labor. Consider music, scents, or visual cues that help them feel calm and relaxed. If they have a favorite scent, consider spraying a cloth with it and using that to sniff as a way to calm in labor, or a markie diffuser. If they prefer music, create a calming playlist as part of the plan and bring headphones. If they prefer visuals, find a picture to bring with them. For comfortable temperature, also consider bringing a small fanor a cozy robe/blanket from home. May also consider meditation to help compartmentalize pain. Educated patient on the 3 R's of calm birthing-- relaxation, rhythm, and ritual. Educated patient on the effect of catecholamines and stress on labor and potential delay. Skilled Intervention: Skilled judgment in the selection of proper modification for activity of daily living/home management based on clinical presentation, deficits, and needs. Educated the patient regarding recommendations and provided written instruction to facilitate compliance. Provided written instruction for activities of daily living techniques to facilitate proper performance and compliance. Reviewed patient specific diagnosis in relation to activities of daily living/home management. Billing Neuromuscular Re-Education Treatment Minutes: 38 Self-Care/Home Management Treatment Minutes: 16 Skilled Treatment Time Minutes (timed and untimed codes): 54 Total Session Time (minutes): 54 Session Start Time : 1305 Session Stop Time : 1359 Sakina Quintero, PT documented in this encounterPark[facility]03-[facility]24 NoteHNO ID: [id number] Author: SAKINA QUINTERO PT Service: ? Author Type: Physical Therapist Type: Progress Notes Filed: 01/11/2024 13:04 Note Text: Episode Visit Count: 2 Therapist That Will Accept/Oversee The Plan Of Care: Sakina Quintero PT, DPT Start of Care Date: 01/03/24 Onset Date: 06/28/23 Patient Identified by Name and Date of : Yes REHABILITATION AND SPORTS THERAPY PHYSICAL THERAPY TREATMENT NOTE ASSESSMENT: Nory Bui tolerated the session with no issues. She demonstrated good understanding of education provided and improvements in lengthening coordination. The patient will continue to benefit from ongoing skilled physical therapy to progress toward set goals. PLAN FOR NEXT VISIT: Pushing progression, pain and stress management strategies SUBJECTIVE: Patient brought her Joaquim with her today. States she did not look at HEP for a couple days, but is doing them daily now. Thinks she is doing the pushing right, but not sure. Has the belly breathing down. She did have two instances of leakage with coughing, has been able to use the knack to prevent. Pain: Pain Pain Level: (had it for 5 days, then two days ago it completely went away) Pain Location: Pubic Frequency: Intermittent, Walking OBJECTIVE MEASURES WITH LEVEL OF FUNCTION: Pelvic Floor Muscle Assessment Consent for pelvic assessment/testing and treatment: Patient was educated regarding pelvic floor physical therapy assessment/treatment which may include pelvic floor and girdle muscle assessment externally or internally (vaginal or rectal approach)., Patient verbalized consent for the above treatment approaches today. Patient understands they have control of the treatment and an opportunity to stop treatment at any time. Pelvic Floor Muscle Assessment: Muscle Dynamics Extra-pelvic muscle activity: Abdominal Range of Motion: Decreased Ability to Lengthen pelvic floor: Difficulty at first, but improves with cueing and practice Breathing Pattern : Initially pushing Diaphragmatic Breathing : Fair Pelvic Floor Manual Assessment Pelvic Floor Tenderness/Hyperactivity: Tested Vaginally in Tested Vaginally in : Supine/hooklying Bulbocavernosus: Bilateral (min tension, no TTP) Superficial transverse perineal: Bilateral (min tension, no TTP) TREATMENT: Manual Therapy: 1: STM/TPR to perineal muscles 2: Partner intruction in perineal STM, including position, depth, pressure, technique, timing, use of lubricant etc Skilled Intervention: Manual skills to improve joint mobility, ROM, and decrease pain. Utilized anatomy knowledge of the therapist, and assessment of patient's response to intervention. Neuromuscular Re-Education: 2: Pt instructed in diaphragmatic breathing. Place one hand on chest and one hand on abdomen. Inhale through the nose for 4 seconds and exhale through pursed lips for 8 seconds. Allow belly to rise but not chest. Focusing on promoting coordination 4: PFM lengthening with breathing coordination 5: PFM lengthening with breathing coordination and holds Skilled Intervention: Skilled judgment used to assess appropriate program for balance and coordination activity. Correct performance of home program was facilitated with verbal, visual, and tactile cueing. Patient education as noted. Billing Manual TherapyTreatment Minutes: 28 Neuromuscular Re-Education Treatment Minutes: 16 Skilled Treatment Time Minutes (timed and untimed codes): 44 Total Session Time (minutes): 44 Session Start Time : 1219 Session Stop Time : 1303 Sakina Quintero [facility]02-26-2024 NoteHNO ID: [id number] Author: SAKINA QUINTERO PT Service: ? Author Type: Physical Therapist Type: Progress Notes Filed: 01/03/2024 16:32 Note Text: Episode Visit Count: 1 Therapist That Will Accept/Oversee The Plan Of Care: Sakina Quintero PT, DPT Start of Care Date: 01/03/24 Onset Date: 06/28/23 Patient Identified by Name and Date of : Yes REHABILITATION AND SPORTS THERAPY PHYSICAL THERAPY EVALUATION PLAN OF CARE: Assessment: Nory Bui presents with chief complaint of pelvic floor dysfunction iin that interferes with bladder function, bowel function . She presents with impairments in coordination, overall function, range of motion, and symptom management. Patient did not complete the PROMIS? (Patient Reported Outcome Measures Information System). Prognosis for therapy is Good due to: current objective clinical presentation, good overall health status, good support system/ coping skills . Deficits likely due to ligamentous laxity in causing increased demand on musculature and weakness of musculature, resulting in pubic pain and recent incidence of stress urinary incontinence. She will benefit from skilled therapy services to meet the goals established for this plan of care as noted below. Goals for Episode of Care: created on 01/03/24 through 02/21/24 Patient demonstrates independence and compliance with home exercise program. Patient reports 80% improvement in bladder leaks while coughing/sneezing compared to evaluation in order to increase bladder function in activities of daily living. Patient reports increased water intake to 80 ounces/day to promote bladder and bowel health. Patient will report decreased pain rating by 2 points to meet minimal clinical important difference for numeric pain rating scale. Patient will demonstrate independent activation and isolation of transverse abdominis muscle to prevent/minimize diastasis recti and better support core during to prevent/minimize back and pelvic girdle pain. Patient will demonstrate appropriate supine<>sit and sit<>stand techniques to minimize strain on abdominal and pelvic musculature. Patient will demonstrate independent performance of perineal massage to prevent perineal tearing with . Patient will demonstrate appropriate biomechanical strategies with regards to positioning for labor and to allow for vaginal delivery with decreased risk of tearing. Patient will demonstrate appropriate lengthening of pelvic floor musculature to allow for proper pushing technique in labor. Patient demonstrates ability to perform diaphragmatic breathing and relaxation to improve ability to naturally bring baby down onto cervix for proper dilation in stage 1 labor, push baby through canal in stage 2, and allow for better coordination with pelvic floor musculature. Patient Goals: Not push so long, prepare for Planned Interventions, Frequency, and Duration: Current Frequency: 1x/week Duration: 6 weeks Total Number of Visits Planned: 6 Planned Treatment Interventions: Therapeutic exercise (89817), Neuromuscular re-education (40832), Manual therapy (92787), Therapeutic activities (92316), Self-assisted management (96347), Body Mechanics Training, Patient/Family/Caregiver Education PLAN FOR NEXT VISIT: Partner training in perineal massage, progress pushing mechanics Patient demonstrates good understanding of plan of care and treatment. The above goals and plan of care were discussed and agreed upon by patient/family. SUBJECTIVE: Patient presents at 33 weeks gestation for prep. Dealing with a lot of nausea, gestational diabetes, and anemia this . Diabetes is diet-controlled. She has had some pelvic pain. Planning for vaginal delivery with epidural. Takes her vitamins before bed and in the morning, and a nausea medication and magnesium at night. Denies restrictions or pelvic rest during . 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 5 points is clinically meaningfully difference Percentiles provide an indication of how the patient's score ranks in relation to the general population. Higher percentile rankings indicate better function/quality of life. 50th percentile is the average of the general population and indicates half of respondents had a worse score. OBJECTIVE MEASURES WITH LEVEL OF FUNCTION: Pelvic Floor Menstruation: Currently Pregnancies: 1 Births: 0 Aggravates Pain: Walking (more content not included)...[facility]09-06-2023 NotePap Smear Specimen AdequacySeptember 2022 11:22amComment.Satisfactory for evaluation. Endocervical and/or squamous metaplasticcells (endocervical component)are present.[facility][id number] Comment on above:Satisfactory for evaluation. Endocervical and/or squamous metaplasticcells (endocervical component)are present.07-14-2023 NotePap Smear Specimen AdequacySeptember 2022 10:22amComment.Satisfactory for evaluation. Endocervical and/or squamous metaplasticcells (endocervical component)are present.[facility] A#[id number] TownshipComment on above: Satisfactory for evaluation. Endocervical and/or squamous metaplasticcells (endocervical component)are present.05-21-2023 Chief complaint+Reason for visit Narrative* Chief Complaint NOB LMP 05/21 PAP Reason for Visit Encounter for screen ing for COVID-19 Needlestick injury of finger Pre-conception counseling Supervision of high-risk [facility] Work Phone: Chief complaint+Reason for visit Narrative* Chief Complaint COVID-19 ANTIGEN TEST/TRAVEL OCCUPATIONAL EXPOSURE Reason for Visit Encounter for screen ing for COVID-19 [facility] Work Phone: Evaluation note* Diagnosis Onset Date Resolution Status Encounter for screening for COVID-19 acute [facility] Work Phone: evaluation note* Diagnosis Onset Date Resolution Status Encounter for screening for COVID-19 acute Needlestick injury of finger acute Pre-conception counseling [facility] [place] Encounter for annual routine gynecological examination noneactive [facility] Work Phone: evaluation note* Diagnosis Onset Date Resolution Status Encounter for screening for COVID-19 acute Needlestick injury of finger acute Pre-conception counseling [facility] [employer] [place] acute Supervision of high-risk acute [facility] Work Phone: evaluation note* Diagnosis Onset Date Resolution Status acute Supervision of high-risk acute acute Supervision of high-risk acute acute Supervision of high-risk acute acute Supervision of high-risk [facility] Work Phone: evaluation note* Diagnosis Onset Date Resolution Status acute Supervision of high-risk acute acute Supervision of high-risk acute acute Supervision of high-risk acute acute Supervision of high-risk acute Abnormal glucose affecting acute Anemia affecting in third trimester acute acute Supervision of high-risk [facility] Work Phone: evaluation note* Diagnosis Onset Date Resolution Status acute Supervision of high-risk acute acute Supervision of high-risk acute acute Supervision of high-risk acute Abnormal glucose affecting acute Anemia affecting in third trimester acute acute Supervision of high-risk [facility] Work Phone: evaluation note* Diagnosis Onset Date Resolution Status acute Supervision of high-risk acute acute Supervision of high-risk acute Anemia affecting in third trimester acute acute Supervision of high-risk acute Anemia affecting in third trimester acute Gestational diabetes mellitu s (GDM) affecting , antepartum acute acute Supervision of high-risk acute Anemia affecting in third trimester acute Gestational diabetes mellitu s (GDM) affecting , antepartum acute acute Supervision of high-risk [facility] Work Phone: evaluation note* Diagnosis Pelvic floor dysfunction- Primary Pelvic muscle wasting [facility] Onset Date Resolution Status acute Supervision of high-risk acute acute Supervision of high-risk acute Anemia affecting in third trimester acute acute Supervision of high-risk acute Anemia affecting in third trimester acute Gestational diabetes mellitu s (GDM) affecting , antepartum acute acute Supervision of high-risk acute Anemia affecting in third trimester acute Gestational diabetes mellitu s (GDM) affecting , antepartum acute acute Supervision of high-risk acute Anemia affecting in third trimester acute Gestational diabetes mellitu s (GDM) affecting , antepartum acute acute Supervision of high-risk acute Anemia affecting in third trimester acute Gestational diabetes mellitu s (GDM) affecting , antepartum acute acute Supervision of high-risk acute [facility] Work Phone: Evaluation note* Diagnosis Onset Date Resolution Status acute Supervision of high-risk acute acute Supervision of high-risk acute Anemia affecting in third trimester acute acute Supervision of high-risk acute Anemia affecting in third trimester acute Gestational diabetes mellitu s (GDM) affecting , antepartum acute acute Supervision of high-risk acute Anemia affecting in third trimester acute Gestational diabetes mellitu s (GDM) affecting , antepartum acute acute Supervision of high-risk acute Anemia affecting in third trimester acute Gestational diabetes mellitu s (GDM) affecting , antepartum acute acute Supervision of high-risk acute Anemia affecting in third trimester acute Gestational diabetes mellitu s (GDM) affecting , antepartum acute acute Supervision of high-risk acute Anemia affecting in third trimester acute Gestational diabetes mellitu s (GDM) affecting , antepartum acute acute Supervision of high-risk acute Uterine size date discrepancy acute Anemia affecting in third trimester acute Breech position of fetus acu te Gestational diabetes mellitu s (GDM) affecting , antepartum acute acute Supervision of high-risk acute Uterine size date discrepancy acute [facility] Work Phone: Evaluation note* Diagnosis Onset Date Resolution Status acute Supervision of high-risk acute Anemia affecting in third trimester acute acute Supervision of high-risk acute Anemia affecting in third trimester acute Gestational diabetes mellitu s (GDM) affecting , antepartum acute acute Supervision of high-risk acute Anemia affecting in third trimester acute Gestational diabetes mellitu s (GDM) affecting , antepartum acute acute Supervision of high-risk acute Anemia affecting in third trimester acute Gestational diabetes mellitu s (GDM) affecting , antepartum acute acute Supervision of high-risk acute Anemia affecting in third trimester acute Gestational diabetes mellitu s (GDM) affecting , antepartum acute acute Supervision of high-risk acute Anemia affecting in third trimester acute Gestational diabetes mellitu s (GDM) affecting , antepartum acute acute Supervision of high-risk acute Uterine size date discrepancy acute Anemia affecting in third trimester acute Breech position of fetus acu te Gestational diabetes mellitu s (GDM) affecting , antepartum acute acute Supervision of high-risk acute Uterine size date discrepancy acute Anemia affecting in third trimester acute Breech position of fetus acu te Gestational diabetes mellitu s (GDM) affecting , antepartum acute acute Supervision of high-risk acute Uterine size date discrepancy acute [facility] Work Phone: Evaluation note* Diagnosis Onset Date Resolution Status resolved Supervision of high-risk resolved Anemia affecting in third trimester resolved resolved Supervision of high-risk resolved Gestational diabetes mellitu s (GDM) affecting , antepartum acute Anemia affecting in third trimester resolved resolved Supervision of high-risk resolved Gestational diabetes mellitu s (GDM) affecting , antepartum acute Anemia affecting in third trimester resolved resolved Supervision of high-risk resolved Gestational diabetes mellitu s (GDM) affecting , antepartum acute Anemia affecting in third trimester resolved resolved Supervision of high-risk resolved Gestational diabetes mellitu s (GDM) affecting , antepartum acute Anemia affecting in third trimester resolved resolved Supervision of high-risk resolved Gestational diabetes mellitu s (GDM) affecting , antepartum acute Anemia affecting in third trimester resolved resolved Supervision of high-risk resolved Uterine size date discrepancy resolved Gestational diabetes mellitu s (GDM) affecting , antepartum acute Anemia affecting in third trimester resolved Breech position of fetus res olved resolved Supervision of high-risk resolved Uterine size date discrepancy resolved Gestational diabetes mellitu s (GDM) affecting , antepartum acute Anemia affecting in third trimester resolved Breech position of fetus res olved resolved Supervision of high-risk resolved Uterine size date discrepancy resolved Gestational diabetes mellitu s (GDM) affecting , antepartum acute Anemia affecting in third trimester resolved Breech position of fetus res olved resolved Supervision of high-risk resolved Uterine size date discrepancy resolved Gestational diabetes mellitu s (GDM) affecting , antepartum acute Vaginal delivery acute Anemia affecting in third trimester resolved Gestational diabetes resolve d Polyhydramnios resolved resolved Supervision of high-risk resolved Uterine size date discrepancy resolved [facility] Work Phone: Evaluation note* Diagnosis Muscle weakness- Primary Muscle weakness (generalized) [facility] Diagnosis Onset Date Resolution Status Admit Date History of polyhydramnios acute June 25, 2025 8:27am Hx of gestational diabetes i n prior , currently acute June 25 5 8:27am acute June 25 025 8:27am Prior complicated by SGA (small for gestational age), antepartum acute June 25 8:27am Supervision of high-risk acute June 25 8:27am [facility] Work Phone: Hospital Discharge instructions Additional Instructions Follow-up with employee health for needlestick protocol. Watch you do not develop any signs of infection to your finger. Keep the wound clean. Watch for redness, swelling, streaks or fever. If develop needs to be evaluated.[facility] Work Phone: Progress note Author Jelena Fragoso [facility] February 02, 2024 11:55am Note Date/Time February 02, 2024 11: 55am [facility] Medical Records Department [address] [place] [id number] OB Triage Progress Note 02/02/24 1153 MR#: [id number] Acct: [id number] Name: NORY BUI Rep #:[id number] : 1995 From: Jelena Fragoso CNM PCP: Care Physician,No Primary Status :REG CLI Y DOS: Location: [id number] Progress Notes Date of Service: 02/02/24 Progress Note: Patient presents for triage evaluation secondary to decreased fundal height in office FHT: 130 Moderate variability reactive no decelerations category I tracing Blende: none Contractions Assessment and plan: US shows breech presentation. REMI 19, Reactive NST, reassuring maternal and status patient discharged to home to follow-up tomorrow for Version with SM. See problem list details for additional plan information. Charges/Coding Multi Select Codes Urinary/Genital Urinary/Genital CPT Codes: 97456-30 non-stress test Interp Assessment & Plan (1) Breech position of fetus: COMMENT: on US at 37.4 weeks version 02/03/24 with SM. REMI 19 on 02/01 (2) Uterine size date discrepancy : COMMENT: S<D (3) Gestational diabetes mellitus (GDM) affecting , antepartum: COMMENT: Diet controlled-36 week growth US 18% (4) Anemia affecting in third trimester: COMMENT: iron recommended repeat cbc in 4 weeks. 01/03:resolved (5) Supervision of high-risk : QUALIFIERS: Trimester: second trimester Qualified Code(s): O09.92- Supervision of high risk , unspecified, second trimester COMMENT: PRR , RAMÓN 02/25/24 surprise Siva (6) : QUALIFIERS: Weeks of gestation: 37 weeks Qualified Code(s): Z3A.37 - 37 weeks gestation of COMMENT: GBS neg, NIPT low risk, carrier testing neg. . afp declined.normal anatomy 02/02/24 1155 <Electronically signed by Jelena bazan CNM> Date _ Jelena Fragoso CNM Cosigner Signature (if applicable): Date CC: ABIEL Fragoso; No Primary Care Physician ~ Signed [facility] Work Phone: Progress note Author Mavis Willis [facility] Note Date/Time June 25, 2025 9: 00am [facility] [address] [place] [address], [address] [place] [address] OFFICE VISIT Date of Service: 06/25/25 MR#: [id number] Acct: [id number] Name: NORY BUI Rep #: [id number] : 1995 Provider: Dr. Jojo Aranda DO Age/Sex: 29/F [place] [facility] [place]: Signed Intake Vital Signs 03/31/24 11:11 06/25/25 08:32 06/25/25 08:34 Height 5 ft 6.5 in 5 ft 6.5 in 5 ft 6.5 in Weight: 140 lb 5 oz BMI 22.3 BP 114/76 Intake Visit Reasons: *EST* NOB LMP 04/14, RAMÓN 01/19 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 Is patient in pain?: No Allergies No Known Allergies Allergy (Verified 06/25/25 08:31) Medications ?Medication ?Instructions ?Recorded ?Confirmed ?Type docosahexaenoic acid 200 mg mg PO 05/31/25 06/25/25 Hi story capsule ( DHA) vitamins no.163-iron tab PO DAILY 05/31/25 History bis-gly 20 mg-folate no.10 1 mg tablet (PNV Tabs 20-1) pyridoxine (vitamin B6) 25 mg 25 mg PO TID 05/31/25 History tablet Last Menstrual Period: 04/14/25 Zika: Zika virus screening: Negative : No PFSH PFSH Medical History Vaginal delivery Successful external cephalic version Anemia affecting Polyhydramnios Gestational diabetes Asthma Family History Grandmother Cancer Breast cancer, and anal cancer Rectal cancer, Onset Age: 79 maternal Breast cancer, Onset Age: 65 Maternal Grandfather Cancer, Onset Age: 50 Maternal- testicular Uncle Cancer, Onset Age: 16 Maternal Brain cancer at 32yo Father Diabetes Social History adopted: No household members: spouse and children housing: house number of children: 1 current occupational status: unemployed current occupation: [employer] current occupational exposures/hazards: No pets and animals: Yes pets and animals: dog(s) history of recent travel: No sexually active: Yes Smoking Status: Never smoker alcohol intake: current alcohol intake frequency: holidays/special occasions only details: NOT WHILE substance use type: does not use well-balanced diet: daily or most days caffeine: Yes Type: coffee Number of servings: 1 eating out: 1-3 times/week during the past year weight has: remained stable what type of physical activity do you participate in: walking frequency: daily duration: 15-30 minutes/day miguel/latter day: Hindu seatbelt use: always do you feel safe at home: Yes additional social history: - Siva History 2 Elective abortions Hx Para 1 Spontaneous abortions Hx # Term Pregnancies Ectopic pregnancies Hx # Pregnancies Multiple births # of living children 1 Past Pregnancies Del. Date Name GA/Weeks Outcome Route Bth Weight Gen Labor Lgth Anesthesia Del Locatn Provider FOB 02/18/24 Idalina 40 live - full term 6# Female epi dural [facility] Delivery Date: 02/18/24 Last Updated by: Lizabeth Vega SM- 40 IOL poly GDM HPI *EST* NOB LMP 04/14, RAMÓN 01/19 Details: NORY BUI is a 29 year old who presents for New OB visit. OB Visit RAMÓN Calculator Estimated Delivery Date Method Current WG Current Estimate 01/19/26 LMP (Certain) 10w 2d Other Estimates 01/19/26 Ultrasound #1 10w 2d Estimated Due Date: 01/19/26 Expected Delivery Route/Plan Labor Preferences- CB/BF classes: [] labor support person: [] labor intervention preferences: [] pain management options preferred: [] cut cord/dad catch: [] : [] PP control planned: [] discussed possible routes of delivery and associated risks: [] special requests: [] Specific Issue/Plans Covid status: [] Flu vaccine: [] Tdap vaccine: [] Rhogam: [] LARC form signed: [] Problem list reviewed and updated with the most current plan of care details and appropriate orders placed. Relevant counseling for the gestational age provided. Continue routine care and follow up unless otherwise noted in visit notes/problem list details Initial Weight: Not Recorded Date -?-?-?-?-?-?-?-?-?-?-?-?- EGA Weight BP Urine Prot -?-?-?-?-?-?-?-?-?-?-?-?- Glucose FHR FuHt Pres Dilation -?-?-?-?-?-?-?-?-?-?-?-?- Effaced St Visit Note 06/25/25 -?-?-?-?-?-?-?-?-?-?-?-?- 10w 2d 140 lb 5 oz 114/76 -?-?-?-?-?-?-?-?-?-?-?-?- 168 -?-?-?-?-?-?-?-?-?-?-?-?- JV- CRL consiste nt with LMP. desires NIPT. 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 Menstrual History Last Menstrual Period: 04/14/25 Reported LMP: definite Normal amount/duration: Yes Frequency in days: 26 On hormonal BC at conception: No hCG+: 05/08/25 Antepartum Record Genetic Screening: Congenital Heart Defect: Other, Neural Tube Defect: Other, Hemoglobinopathy Or Carrier: Other, Cystic Fibrosis: Other, Chromosome Abnormality: Other, Mark-Sachs: Other, Hemophilia: Other, Intellectual Disability/Autism: Other, Recurrent Loss/Stillbirth: Patient (Mother 2 miscarriages), Other Structural Defect: Other, Other Genetic Disease: Other and Maternal Metabolic Disorder: Other Infection History: Live with someone with TB or Exposed to TB: No, Patient or Partner has history of Genital Herpes: No, Rash or Viral illness since last mentrual period: No, Prior GBS-Infected child: No, History of STD: No, HIV Infection: No, History of Hepatitis: No, Recent travel outside of [place]: No, Concern for hepatitis exposure: No, Varicella immune: Yes (immune-virus) and Covid Vaccinated: Yes (Moderna, 1 Boosters) Medical History Medical History: Positive: Diabetes (GDM), Pulmonary (e.g.,TB,Asthma) (childhood), Seasonal allergies, Relevant family history (See PFSH ) and Other (anemia with 1st ) and Negative: Hypertension, Heart disease, Auto-immune disorder, Kidney disease/UTI, Neurologic/epilepsy, Psychiatric, Depression/ depression, Hepatitis/liver disease, Varicosities/phlebitis, Thyroid dysfunction, Trauma/domestic violence, History of blood transfusions, D (Rh) Sensitized, Drug/latex allergies/reactions, Breast, Piano Tuner surgery, Operations/hospitalizations, Anesthetic complications, History of abnormal pap, Uterine anomaly/isiah, Infertility and Anti-retroviral treatment ACOG First Trimester First Trimester: Desire for , Alcohol, Tobacco Cessation, Illicit/Recreational Drug/Substance Use, Intimate Partner Violence, Barriers to care, Unstable Housing, Communication Barriers, Environmental/Work Hazards, Anticipated Course of Care, Toxoplasmosis Precations, Use of Any medications, Sexual activity, Exercise, Dental Care, Sauna/Hot tub use, Seat Belt use, Childbirth classes/Hospital facilities, Travel, Indications for Ultrasound and Screening for Aneuploidy; Discussed Second Trimester Second Trimester: Signs and Symptoms of Labor and Selecting a care provider Third Trimester Third Trimester: Pain Management Plans, Labor support person(s), Immediate Larc, Circumcision preference, Movement Monitoring, Signs and Symptoms of Preeclampsia, Feeding No , Education, Family Medical Leave or Disability Forms and Intimate Partner Violence; Discussed Depression ROS Const Reports system reviewed and no additional complaints, except as documented, Reports fatigue and Denies fever(s) Eyes Reports system reviewed and no additional complaints, except as documented ENT Reports system reviewed and no additional complaints, except as documented Card Denies chest pain and Denies dyspnea Resp Reports system reviewed and no additional complaints, except as documented, Denies cough and Denies dyspnea GI Denies abdominal pain and Reports nausea Reports system reviewed and no additional complaints, except as documented Musc Reports system reviewed and no additional complaints, except as documented Skin/Breast Reports system reviewed and no additional complaints, except as documented Neuro Yes system reviewed and no additional complaints, except as documented Psych Reports system reviewed and no additional complaints, except as documented Endo Reports system reviewed and no additional complaints, except as documented and Reports fatigue Exam Const General: healthy appearing, comfortable and no acute distress Orientation: alert HENIN Head: normal to inspection, normocephalic and atraumatic Ears: hearing grossly normal bilaterally and external ears normal Nose: external nose normal and nares normal Mouth: oral mucosae normal Teeth and gingiva: dentition normal Eyes General: appearance normal, both eyes and all related structures Neck Neck: normal visual inspection, no lymphadenopathy and supple Thyroid: thyroid normal Chest Chest palpation & inspection: normal inspection of the chest Breast inspection: normal inspection of the breasts and normal inspection of the axillae Breast palpation: normal palpation of the breasts and normal palpation of the axillae Resp Effort & Inspection: normal respiratory effort GI Inspection: normal to inspection Palpation: soft and no hepatosplenomegaly General: bladder normal to palpation External Female Exam: normal external appearance and normal appearance of the urethra Urethra: normal appearance of the urethra Speculum Exam - Vagina: normal appearance of the vagina and normal vaginal discharge Speculum Exam - Cervix: normal appearance of the cervix Bimanual Exam- Vagina & Uterus: normal bimanual exam, bladder normal to palpation, non-tender and other Bimanual Exam- Adnexa, other: non-tender Skin General: no rashes or lesions noted Neuro Motor: muscle tone normal throughout and no movement abnormalities noted Extrem General: normal to inspection and full ROM Supplemental Info ACOG book given and patient encouraged to read about nutrition, exercise, weight gain, and food avoidance in . Coding Level of Care Code OB Routine Diagnoses Prior complicated by SGA (small for gestational age), antepartum O09.299 History of polyhydramnios Z87.59 Supervision of high-risk O09.90 10 weeks gestation of Z3A.10 Weeks of gestation: 10 weeks Hx of gestational diabetes in prior , currently O09.299; Z86.32 Assessment and Plan Assessment and Plan (1) Prior complicated by SGA (small for gestational age), antepartum: Status: Acute (2) History of polyhydramnios: Status: Acute Comment: 1st (3) Supervision of high-risk : Status: Acute Comment: , RAMÓN 01/19/26, TONIE Ruiz, Siva (4) : Status: Acute Qualifiers: Weeks of gestation: 10 weeks Qualified Code(s): Z3A.10 - 10 weeks gestation of Comment: elects NIPT with Gender (5) Hx of gestational diabetes in prior , currently : Status: Acute Plan Patient oriented to practice and discussed care expectations and screenings. ACOG book offered to patient. Discussed routine and specially indicated labs if needed- patient consents to testing. See problem list details for plan information. Optional screening including maternal carrier screenings, neural tube defect screening, genetic screening options including quad screen, nuchal translucency, sequential screening, and NIPT screening offered to patient and patient chose: nipt 06/25/25 0900 <Electronically signed by Mavis Cobian DO> Date _ Mavis Aranda DO Cosigner Signature: Date (if applicable) CC: ~ [facility] Work Phone: Progress note Author Lori Schneider [facility] Note Date/Time July 26, 2025 11:22am [facility] [address], [address] [place] [address] OFFICE VISIT Date of Service: 07/26/25 MR#: [id number] Acct: [id number] Name: NORY BUI Rep #: [id number] : 1995 Provider: Dr. Kp Schneider MD Age/Sex: 29/F [place] [facility] [place]: Signed Intake Vital Signs 03/31/24 11:11 06/25/25 08:34 07/26/25 11:00 Height 5 ft 6.5 in 5 ft 6.5 in 5 ft 6.5 in Weight: 142 lb 6 oz BMI 22.6 BP 114/76 Intake Visit Reasons: 14wk 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 Is patient in pain?: No Feel stressed/tense/nervous/anxious/difficulty sleeping: not at all Allergies No Known Allergies Allergy (Verified 07/26/25 11:01) Medications ?Medication ?Instructions ?Recorded ?Confirmed ?Type docosahexaenoic acid 200 mg mg PO 05/31/25 07/26/25 Hi story capsule ( DHA) vitamins no.163-iron tab PO DAILY 05/31/25 History bis-gly 20 mg-folate no.10 1 mg tablet (PNV Tabs 20-1) pyridoxine (vitamin B6) 25 mg 25 mg PO TID 05/31/25 History tablet Last Menstrual Period: 04/14/25 Zika: Zika virus screening: Negative : No Have you fallen in the past year?: No PFSH PFSH Medical History Vaginal delivery Successful external cephalic version Anemia affecting Polyhydramnios Gestational diabetes Asthma Family History Grandmother Cancer Breast cancer, and anal cancer Rectal cancer, Onset Age: 79 maternal Breast cancer, Onset Age: 65 Maternal Grandfather Cancer, Onset Age: 50 Maternal- testicular Uncle Cancer, Onset Age: 16 Maternal Brain cancer at 32yo Father Diabetes Social History adopted: No household members: spouse and children housing: house number of children: 1 current occupational status: unemployed current occupation: [employer] current occupational exposures/hazards: No pets and animals: Yes pets and animals: dog(s) history of recent travel: No sexually active: Yes Smoking Status: Never smoker alcohol intake: current alcohol intake frequency: holidays/special occasions only details: NOT WHILE substance use type: does not use well-balanced diet: daily or most days caffeine: Yes Type: coffee Number of servings: 1 eating out: 1-3 times/week during the past year weight has: remained stable what type of physical activity do you participate in: walking frequency: daily duration: 15-30 minutes/day miguel/latter day: Hindu seatbelt use: always do you feel safe at home: Yes additional social history: - Siva History 2 Elective abortions Hx Para 1 Spontaneous abortions Hx # Term Pregnancies Ectopic pregnancies Hx # Pregnancies Multiple births # of living children 1 Past Pregnancies Del. Date Name GA/Weeks Outcome Route Bth Weight Gen Labor Lgth Anesthesia Del Locatn Provider FOB 02/18/24 Idalina 40 live - full term 6# Female epi dural [facility] Siva Delivery Date: 02/18/24 Last Updated by: Lizabeth Vega SM- 40 IOL poly GDM HPI 14wk OB Details: NORY BUI is a 29 year old who presents for routine OB visit. OB Visit RAMÓN Calculator Estimated Delivery Date Method Current WG Current Estimate 01/19/26 LMP (Certain) 14w 5d Other Estimates 01/19/26 Ultrasound #1 14w 5d Expected Delivery Route/Plan Labor Preferences- CB/BF classes: [] labor support person: [] labor intervention preferences: [] pain management options preferred: [] cut cord/dad catch: [] : [] PP control planned: [] discussed possible routes of delivery and associated risks: [] special requests: [] Specific Issue/Plans Covid status: [] Flu vaccine: [] Tdap vaccine: [] Rhogam: [] LARC form signed: [] Problem list reviewed and updated with the most current plan of care details and appropriate orders placed. Relevant counseling for the gestational age provided. Continue routine care and follow up unless otherwise noted in visit notes/problem list details Initial Weight: Not Recorded Date -?-?-?-?-?-?-?-?-?-?-?-?- EGA Weight BP Urine Prot -?-?-?-?-?-?-?-?-?-?-?-?- Glucose FHR FuHt Pres Dilation -?-?-?-?-?-?-?-?-?-?-?-?- Effaced St Visit Note 06/25/25 -?-?-?-?-?-?-?-?-?-?-?-?- 10w 2d 140 lb 5 oz 114/76 -?-?-?-?-?-?-?-?-?-?-?-?- 168 -?-?-?-?-?-?-?-?-?-?-?-?- JV- CRL consiste nt with LMP. desires NIPT. 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 07/26/25 -?-?-?-?-?-?-?-?-?-?-?-?- 14w 5d 142 lb 6 oz 114/76 Nega tive -?-?-?-?-?-?-?-?-?-?-?-?- Negative 160 -?-?-?-?-?-?-?-?-?-?-?-?- Sm- no vb crampi ng ACOG First Trimester First Trimester: Desire for , Alcohol, Tobacco Cessation, Illicit/Recreational Drug/Substance Use, Intimate Partner Violence, Barriers to care, Unstable Housing, Communication Barriers, Environmental/Work Hazards, Anticipated Course of Care, Toxoplasmosis Precations, Use of Any medications, Sexual activity, Exercise, Dental Care, Sauna/Hot tub use, Seat Belt use, Childbirth classes/Hospital facilities, Travel, Indications for Ultrasound and Screening for Aneuploidy; Discussed Second Trimester Second Trimester: Signs and Symptoms of Labor and Selecting a care provider Third Trimester Third Trimester: Pain Management Plans, Labor support person(s), Immediate Larc, Circumcision preference, Movement Monitoring, Signs and Symptoms of Preeclampsia, Infant Feeding No , Education, Family Medical Leave or Disability Forms and Intimate Partner Violence; Discussed Depression Results POC Urinalysis 2 Dip (Clinic) Office Urine Glucose Negative Last Edit by Laine Colin on 07/26/25 11:10 Office Urine Protein Negative Last Edit by Laine Colin on 07/26/25 11:10 Coding Level of Care Code OB Routine Diagnoses Prior complicated by SGA (small for gestational age), antepartum O09.299 History of polyhydramnios Z87.59 Supervision of high-risk O09.90 14 weeks gestation of Z3A.14 Weeks of gestation: 14 weeks Hx of gestational diabetes in prior , currently O09.299; Z86.32 Assessment and Plan Assessment and Plan (1) Prior complicated by SGA (small for gestational age), antepartum: Status: Acute (2) History of polyhydramnios: Status: Acute Comment: 1st (3) Supervision of high-risk : Status: Acute Comment: PRR , RAMÓN 01/19/26, girl PC Sara, Siva (4) : Status: Acute Qualifiers: Weeks of gestation: 14 weeks Qualified Code(s): Z3A.14 - 14 weeks gestation of Comment: NIPT low risk (5) Hx of gestational diabetes in prior , currently : Status: Acute Orders: Orders POC Urinalysis 2 Dip (Clinic) Today Clinical Quality Measures Falls Risk Screening/Assistive Devices Have you fallen in the past year?: No 07/26/25 1122 <Electronically signed by Lori liao MD> Date _ Lori Cage Signature: Date (if applicable) CC: ~ [facility] Work Phone: Progress note Author Jelena Fragoso [facility] Note Date/Time August 17, 2025 1 1:14am [facility] [address] [place] [address], [address] [place] [address] OFFICE VISIT Date of Service: 08/17/25 MR#: [id number] Acct: [id number] Name: NORY BUI Rep #: [id number] : 1995 Provider: ABIEL Fragoso Age/Sex: 30/F [place] [facility] [place]: Signed Intake Vital Signs 06/25/25 08:34 07/26/25 11:00 08/17/25 10:51 Height 5 ft 6.5 in 5 ft 6.5 in 5 ft 6.5 in Weight: 148 lb BMI 23.5 BP 114/76 Intake Visit Reasons: 17wk6d ob Chief Complaint: 17wk 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 Is patient in pain?: No Allergies No Known Allergies Allergy (Verified 08/17/25 10:53) Medications ?Medication ?Instructions ?Recorded ?Confirmed ?Type docosahexaenoic acid 200 mg mg PO 05/31/25 08/17/25 Hi story capsule ( DHA) vitamins no.163-iron tab PO DAILY 05/31/25 History bis-gly 20 mg-folate no.10 1 mg tablet (PNV Tabs 20-1) pyridoxine (vitamin B6) 25 mg 25 mg PO TID 05/31/25 History tablet Last Menstrual Period: 04/14/25 : No Have you fallen in the past year?: No PFSH PFSH Medical History Vaginal delivery Successful external cephalic version Anemia affecting Polyhydramnios Gestational diabetes Asthma Family History Grandmother Cancer Breast cancer, and anal cancer Rectal cancer, Onset Age: 79 maternal Breast cancer, Onset Age: 65 Maternal Grandfather Cancer, Onset Age: 50 Maternal- testicular Uncle Cancer, Onset Age: 16 Maternal Brain cancer at 32yo Father Diabetes Social History adopted: No household members: spouse and children housing: house number of children: 1 current occupational status: unemployed current occupation: [employer] current occupational exposures/hazards: No pets and animals: Yes pets and animals: dog(s) history of recent travel: No sexually active: Yes Smoking Status: Never smoker alcohol intake: current alcohol intake frequency: holidays/special occasions only details: NOT WHILE substance use type: does not use well-balanced diet: daily or most days caffeine: Yes Type: coffee Number of servings: 1 eating out: 1-3 times/week during the past year weight has: remained stable what type of physical activity do you participate in: walking frequency: daily duration: 15-30 minutes/day miguel/latter day: Hindu seatbelt use: always do you feel safe at home: Yes additional social history: - Siva History 2 Elective abortions Hx Para 1 Spontaneous abortions Hx # Term Pregnancies Ectopic pregnancies Hx # Pregnancies Multiple births # of living children 1 Past Pregnancies Del. Date Name GA/Weeks Outcome Route Bth Weight Gen Labor Lgth Anesthesia Del Locatn Provider FOB 02/18/24 Idalina 40 live - full term 6# Female epi dural [facility] Delivery Date: 02/18/24 Last Updated by: Lizabeth Vega SM- 40 IOL poly GDM HPI 17wk6d ob Details: NORY BUI is a 30 year old who presents for routine OB visit. OB Visit RAMÓN Calculator Estimated Delivery Date Method Current WG Current Estimate 01/19/26 LMP (Certain) 17w 6d Other Estimates 01/19/26 Ultrasound #1 17w 6d Expected Delivery Route/Plan Labor Preferences- CB/BF classes: [] labor support person: [] labor intervention preferences: [] pain management options preferred: [] cut cord/dad catch: [] : [] PP control planned: [] discussed possible routes of delivery and associated risks: [] special requests: [] Specific Issue/Plans Covid status: [] Flu vaccine: [] Tdap vaccine: [] Rhogam: [] LARC form signed: [] Problem list reviewed and updated with the most current plan of care details and appropriate orders placed. Relevant counseling for the gestational age provided. Continue routine care and follow up unless otherwise noted in visit notes/problem list details Initial Weight: Not Recorded Date -?-?-?-?-?-?-?-?-?-?-?-?- EGA Weight BP Urine Prot -?-?-?-?-?-?-?-?-?-?-?-?- Glucose FHR FuHt Pres Dilation -?-?-?-?-?-?-?-?-?-?-?-?- Effaced St Visit Note 06/25/25 -?-?-?-?-?-?-?-?-?-?-?-?- 10w 2d 140 lb 5 oz 114/76 -?-?-?-?-?-?-?-?-?-?-?-?- 168 -?-?-?-?-?-?-?-?-?-?-?-?- JV- CRL consiste nt with LMP. desires NIPT. 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 07/26/25 -?-?-?-?-?-?-?-?-?-?-?-?- 14w 5d 142 lb 6 oz 114/76 Nega tive -?-?-?-?-?-?-?-?-?-?-?-?- Negative 160 -?-?-?-?-?-?-?-?-?-?-?-?- Sm- no vb crampi ng 08/17/25 -?-?-?-?-?-?-?-?-?-?-?-?- 17w 6d 148 lb 114/76 Negative -?-?-?-?-?-?-?-?-?-?-?-?- Negative 145 -?-?-?-?-?-?-?-?-?-?-?-?- KW- no vb/crampi ng. still having nausea but getting better. US scheduled. declines AFP. ACOG First Trimester First Trimester: Desire for , Alcohol, Tobacco Cessation, Illicit/Recreational Drug/Substance Use, Intimate Partner Violence, Barriers to care, Unstable Housing, Communication Barriers, Environmental/Work Hazards, Anticipated Course of Care, Toxoplasmosis Precations, Use of Any medications, Sexual activity, Exercise, Dental Care, Sauna/Hot tub use, Seat Belt use, Childbirth classes/Hospital facilities, Travel, Indications for Ultrasound and Screening for Aneuploidy; Discussed Second Trimester Second Trimester: Signs and Symptoms of Labor and Selecting a care provider Third Trimester Third Trimester: Pain Management Plans, Labor support person(s), Immediate Larc, Circumcision preference, Movement Monitoring, Signs and Symptoms of Preeclampsia, Infant Feeding No , Education, Family Medical Leave or Disability Forms and Intimate Partner Violence; Discussed Depression ROS Const Reports system reviewed and no additional complaints, except as documented Eyes Reports system reviewed and no additional complaints, except as documented ENT Reports system reviewed and no additional complaints, except as documented Card Reports system reviewed and no additional complaints, except as documented Resp Reports system reviewed and no additional complaints, except as documented GI Reports system reviewed and no additional complaints, except as documented, Denies nausea and Denies vomiting Reports system reviewed and no additional complaints, except as documented Musc Reports system reviewed and no additional complaints, except as documented Skin/Breast Reports system reviewed and no additional complaints, except as documented Neuro Yes system reviewed and no additional complaints, except as documented Psych Reports system reviewed and no additional complaints, except as documented Endo Reports system reviewed and no additional complaints, except as documented Jose/Lymph Reports system reviewed and no additional complaints, except as documented Aller/Immun Reports system reviewed and no additional complaints, except as documented Exam Const General: cooperative, healthy appearing and no acute distress Orientation: alert, awake and oriented x3 Neck Neck: normal visual inspection and full ROM Resp Effort & Inspection: normal respiratory effort, able to speak in complete sentences and symmetric chest movement GI Inspection: normal to inspection Palpation: soft and other Other: gravid Skin General: no rashes or lesions noted Neuro General: patient alert, patient awake and patient oriented x3 Cognition: normal cognition Speech: speech normal Gait: normal gait Motor: muscle tone normal throughout Extrem General: normal to inspection and full ROM Psych Appearance: grossly normal Mental Status: mental status grossly normal Mood: congruent mood Affect: normal affect Speech and Movement: speech and movement normal Attitude: cooperative Thought Process: normal Thought Content: normal Judgment: judgment good Results POC Urinalysis 2 Dip (Clinic) Office Urine Glucose Negative Last Edit by Shelbi Jaime on 08/17/25 10:58 Office Urine Protein Negative Last Edit by Shelbi Jaime on 08/17/25 10:58 Coding Level of Care Code OB Routine Diagnoses Prior complicated by SGA (small for gestational age), antepartum O09.299 History of polyhydramnios Z87.59 Supervision of high-risk O09.90 17 weeks gestation of Z3A.17 Weeks of gestation: 17 weeks Hx of gestational diabetes in prior , currently O09.299; Z86.32 Assessment and Plan Assessment and Plan (1) Prior complicated by SGA (small for gestational age), antepartum: Status: Acute (2) History of polyhydramnios: Status: Acute Comment: 1st (3) Supervision of high-risk : Status: Acute Comment: PRR , RAMÓN 01/19/26, girl TONIE Ruiz, Siva (4) : Status: Acute Qualifiers: Weeks of gestation: 17 weeks Qualified Code(s): Z3A.17 - 17 weeks gestation of Comment: NIPT low risk (5) Hx of gestational diabetes in prior , currently : Status: Acute Orders: Orders POC Urinalysis 2 Dip (Clinic) Today Plan Details Additional Comments: ACOG trimester education reviewed and updated. see problem list details for updated plan management information and see below for orders placed at this visit. GA appropriate handout given. Clinical Quality Measures Falls Risk Screening/Assistive Devices Have you fallen in the past year?: No 08/17/25 1114 <Electronically signed by Jelena bazan CNM> Date _ Jelena Fragoso CNM Cosigner Signature: Date (if applicable) CC: ~ [facility] Work Phone: Reason for referral (narrative)No reason for [facility] Work Phone: Summary Purpose Family History No Family History Records Found Relationship Condition Age at Onset Recorded Date/T landry grandmother Malignant neoplasm Unknown grandfather Malignant neoplasm Unknown Relationship Condition Age at Onset Recorded Date/T landry grandmother Malignant neoplasm Unknown Malignant neoplasm of rectum 79 Malignant neoplasm of breast Unknown grandfather Malignant neoplasm 50 uncle Malignant neoplasm 16 Relationship Condition Age at Onset Recorded Date/T landry grandmother Malignant neoplasm Unknown Malignant neoplasm of rectum 79 Malignant neoplasm of breast 65 grandfather Malignant neoplasm 50 uncle Malignant neoplasm 16 father Diabetes mellitus Unknown Advance Directives No Advanced Directives Records Found Advance Directive Response Recorded Date/ Time Living Will No August 27 11:38am Power of Clinical Field Specialist No August 27, 2022 11:38am Advance Directive Response Recorded Date/ Time Living Will No August 27 10:38am Power of Clinical Field Specialist No August 27, 2022 10:38am Advance Directive Response Recorded Date/ Time Living Will No January 12, 2024 4:54pm Power of Clinical Field Specialist No January 11 4:54pm Advance Directive Response Recorded Date/ Time Living Will No February 17, 2024 5:32pm Power of Clinical Field Specialist No February 16 5:32pm Chief Complaint and Reason for Visit Chief Complaint 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 IUD removal Reason for Visit Encounter for screen ing for COVID-19 [place] injury of finger Pre-conception counseling Encounter for annual routine gynecological examination Chief Complaint NOB LMP 7/14 PAP 12 WK OB 16 WK OB HIGH RISK 20 WK OB Reason for Visit Supervision of high-risk Supervision of high-risk Supervision of high-risk Supervision of high-risk Chief Complaint 12 WK OB 16 WK OB HIGH RISK 20 WK OB 24 WK OB, *running 6 mins* 28 WK OB req for SM Reason for Visit Supervision of high-risk Supervision of high-risk Supervision of high-risk Supervision of high-risk Abnormal glucose affecting Anemia affecting in third trimester Supervision of high-risk Chief Complaint 16 WK OB HIGH RISK 20 WK OB 24 WK OB, *running 6 mins* 28 WK OB req for SM GLUCOSE Reason for Visit Supervision of high-risk Supervision of high-risk Supervision of high-risk Abnormal glucose affecting Anemia affecting in third trimester Supervision of high-risk Chief Complaint HIGH RISK 20 WK OB 24 WK OB, *running 6 mins* 28 WK OB req for SM GLUCOSE 30 WK OB GESTATIONAL DIABETES 32 wk OB Reason for Visit Supervision of high-risk Supervision of high-risk Anemia affecting in third trimester Supervision of high-risk Anemia affecting in third trimester Gestational diabetes mellitus (GDM) affecting , antepartum Supervision of high-risk Anemia affecting in third trimester Gestational diabetes mellitus (GDM) affecting , antepartum Supervision of high-risk Chief Complaint 20 WK OB 24 WK OB, *running 6 mins* 28 WK OB req for SM GLUCOSE 30 WK OB GESTATIONAL DIABETES 32 wk OB 34 WK OB 36 WK OB WELL BEING Reason for Visit Supervision of high-risk Supervision of high-risk Anemia affecting in third trimester Supervision of high-risk Anemia affecting in third trimester Gestational diabetes mellitus (GDM) affecting , antepartum Supervision of high-risk Anemia affecting in third trimester Gestational diabetes mellitus (GDM) affecting , antepartum Supervision of high-risk Anemia affecting in third trimester Gestational diabetes mellitus (GDM) affecting , antepartum Supervision of high-risk Anemia affecting in third trimester Gestational diabetes mellitus (GDM) affecting , antepartum Supervision of high-risk Chief Complaint 20 WK OB 24 WK OB, *running 6 mins* 28 WK OB req for SM GLUCOSE 30 WK OB GESTATIONAL DIABETES 32 wk OB 34 WK OB 36 WK OB WELL BEING 37 WK OB R/O LABOR R/O LABOR Reason for Visit Supervision of high-risk Supervision of high-risk Anemia affecting in third trimester Supervision of high-risk Anemia affecting in third trimester Gestational diabetes mellitus (GDM) affecting , antepartum Supervision of high-risk Anemia affecting in third trimester Gestational diabetes mellitus (GDM) affecting , antepartum Supervision of high-risk Anemia affecting in third trimester Gestational diabetes mellitus (GDM) affecting , antepartum Supervision of high-risk Anemia affecting in third trimester Gestational diabetes mellitus (GDM) affecting , antepartum Supervision of high-risk Anemia affecting in third trimester Gestational diabetes mellitus (GDM) affecting , antepartum Supervision of high-risk Uterine size date discrepancy Anemia affecting in third trimester Breech position of fetus Gestational diabetes mellitus (GDM) affecting , antepartum Supervision of high-risk Uterine size date discrepancy Chief Complaint 24 WK OB, *running 6 mins* 28 WK OB req for SM GLUCOSE 30 WK OB GESTATIONAL DIABETES 32 wk OB 34 WK OB 36 WK OB WELL BEING 37 WK OB R/O LABOR R/O LABOR VERSION Reason for Visit Supervision of high-risk Anemia affecting in third trimester Supervision of high-risk Anemia affecting in third trimester Gestational diabetes mellitus (GDM) affecting , antepartum Supervision of high-risk Anemia affecting in third trimester Gestational diabetes mellitus (GDM) affecting , antepartum Supervision of high-risk Anemia affecting in third trimester Gestational diabetes mellitus (GDM) affecting , antepartum Supervision of high-risk Anemia affecting in third trimester Gestational diabetes mellitus (GDM) affecting , antepartum Supervision of high-risk Anemia affecting in third trimester Gestational diabetes mellitus (GDM) affecting , antepartum Supervision of high-risk Uterine size date discrepancy Anemia affecting in third trimester Breech position of fetus Gestational diabetes mellitus (GDM) affecting , antepartum Supervision of high-risk Uterine size date discrepancy Anemia affecting in third trimester Breech position of fetus Gestational diabetes mellitus (GDM) affecting , antepartum Supervision of high-risk Uterine size date discrepancy Chief Complaint 24 WK OB, *running 6 mins* 28 WK OB req for SM GLUCOSE 30 WK OB GESTATIONAL DIABETES 32 wk OB 34 WK OB 36 WK OB WELL BEING 37 WK OB R/O LABOR R/O LABOR VERSION VERSION 38 WK OB 39 WK OB VAGINAL DELIVERY INDUCTION VAGINAL DELIVERY VAGINAL DELIVERY Reason for Visit Supervision of high-risk Anemia affecting in third trimester Supervision of high-risk Gestational diabetes mellitus (GDM) affecting , antepartum Anemia affecting in third trimester Supervision of high-risk Gestational diabetes mellitus (GDM) affecting , antepartum Anemia affecting in third trimester Supervision of high-risk Gestational diabetes mellitus (GDM) affecting , antepartum Anemia affecting in third trimester Supervision of high-risk Gestational diabetes mellitus (GDM) affecting , antepartum Anemia affecting in third trimester Supervision of high-risk Gestational diabetes mellitus (GDM) affecting , antepartum Anemia affecting in third trimester Supervision of high-risk Uterine size date discrepancy Gestational diabetes mellitus (GDM) affecting , antepartum Anemia affecting in third trimester Breech position of fetus Supervision of high-risk Uterine size date discrepancy Gestational diabetes mellitus (GDM) affecting , antepartum Anemia affecting in third trimester Breech position of fetus Supervision of high-risk Uterine size date discrepancy Gestational diabetes mellitus (GDM) affecting , antepartum Anemia affecting in third trimester Breech position of fetus Supervision of high-risk Uterine size date discrepancy Gestational diabetes mellitus (GDM) affecting , antepartum Vaginal delivery Anemia affecting in third trimester Gestational diabetes Polyhydramnios Supervision of high-risk Uterine size date discrepancy Chief Complaint Admit Date *EST* NOB LMP 04/14, RAMÓN 01/19June 25, 2025 8:27am Reason for Visit Admit Date History of polyhydramnios June 25 025 8:27am Hx of gestational diabetes i n prior , currently June 25, 2025 8:27am June 25, 2025 8: 27am Prior complicated by SGA (small for gestational age), antepartum June 25, 2025 8:27am Supervision of high-risk Augus 2024 8:27am Chief Complaint Admit Date *EST* NOB LMP 04/14, RAMÓN 01/19June 25, 2025 8:27am 14wk OB July 26, 2025 10:57am Reason for Visit Admit Date History of polyhydramnios June 25 025 8:27am Hx of gestational diabetes i n prior , currently June 25, 2025 8:27am June 25, 2025 8: 27am Prior complicated by SGA (small for gestational age), antepartum June 25, 2025 8:27am Supervision of high-risk Augus t 2024 8:27am History of polyhydramnios July 10:57am Hx of gestational diabetes i n prior , currently July 26, 2025 10:57am July 26, 2025 10:57am Prior complicated by SGA (small for gestational age), antepartum July 26, 2025 10:57am Supervision of high-risk Umberto mber 2024 10:57am Chief Complaint Admit Date *EST* NOB LMP 6/7, RAMÓN 3/14 June 25, 2025 8:27am 14wk OB July 26, 2025 10:57am 17wk6d ob August 17, 2025 1 0:43am Reason for Visit Admit Date History of polyhydramnios June 25, 2 025 8:27am Hx of gestational diabetes i n prior , currently June 25, 2025 8:27am June 25, 2025 8: 27am Prior complicated by SGA (small for gestational age), antepartum June 25, 2025 8:27am Supervision of high-risk Augus t 2024 8:27am History of polyhydramnios July 10:57am Hx of gestational diabetes i n prior , currently July 26, 2025 10:57am July 26, 2025 10:57am Prior complicated by SGA (small for gestational age), antepartum July 26, 2025 10:57am Supervision of high-risk Umberto mber 2024 10:57am History of polyhydramnios August 17, 2025 10:43am Hx of gestational diabetes i n prior , currently August 17, 2025 10:43am August 17, 2025 1 0:43am Prior complicated by SGA (small for gestational age), antepartum August 17, 2025 10:43am Supervision of high-risk Octob er 2024 10:43am Additional Source Comments INFORMATION SOURCE (unrecogn ized section and content) DATE CREATED AUTHOR 06/23/2018 [facility] DATE CREATED AUTHOR AUTHOR'S ORGANIZ ATION 04/02/2024 [facility] DATE CREATED AUTHOR AUTHOR'S ORGANIZ ATION 09/02/2025 [facility] DATE CREATED AUTHOR AUTHOR'S ORGANIZ ATION 09/11/2025 [facility] Goals (unrecognized section and content) Type Care Experience svdLabor Preferences -CB/BF classes: scheduledlabor support person: Sivalabor intervention preferences: []pain management options preferred: epiduralcut cord/dad catch: yesbreastfeeding: yesPP control planned: discusseddiscussed possible routes of delivery and associated risks: []special requests: [] Care Experience Labor Preferences-CB /BF classes: []labor support person: []labor intervention preferences: []pain management options preferred: []cut cord/dad catch: []: []PP control planned: []discussed possible routes of delivery and associated risks: []special requests: [] Care Teams (unrecognized sec tion and content) Team Status: Active Member Role Status Dates No Primary Care Physician Primary Care Provider Active Team Status: Inactive Member Role Status Dates No Primary Care Physician Primary Care Provider, Refer ring Provider Active Dr. Mavis Aranda DO Attending Provider Activ e Team Status: Inactive Member Role Status Dates No Primary Care Physician Primary Care Provider Active Dr. Mavis Aranda DO Attending Provider, Refe rring Provider Active Team Status: Inactive Member Role Status Dates No Primary Care Physician Primary Care Provider, Refer ring Provider Active Yumiko Mcpherson CNM Attending Provider Active Team Status: Inactive Member Role Status Dates No Primary Care Physician Primary Care Provider, Refer ring Provider Active Laine Serrano CAR WIPER, CAR WIPER-C Attending Provider Active Team Status: Inactive Member Role Status Dates No Primary Care Physician Referring Provider Active Jelena Fragoso CNM Attending Provider Active Team Status: Inactive Member Role Status Dates No Primary Care Physician Primary Care Provider Active Jelena Fragoso CNM Attending Provider, Referring Pro vider Active Team Status: Inactive Member Role Status Dates No Primary Care Physician Primary Care Provider Active Yumiko Mcpherson CNM Attending Provider, Referring Pr ovider Active Team Status: Inactive Member Role Status Dates No Primary Care Physician Primary Care Provider, Refer ring Provider Active Dr. Lori Schneider MD Attending Provider Active Team Status: Inactive Member Role Status Dates No Primary Care Physician Primary Care Provider Active Dr. Lori Schneider MD Attending Provider Active Team Status: Inactive Member Role Status Dates No Primary Care Physician Primary Care Provider Active Dr. Lori Schneider MD Attending Provider, Referr ing Provider Active Team Status: Inactive Member Role Status Dates No Primary Care Physician Primary Care Provider, Refer ring Provider Active Jelena Fragoso CNM Attending Provider Active Team Status: Active Member Role Status Dates No Primary Care Physician Primary Care Provider Active Laine Serrano CAR WIPER, CAR WIPER-C Attending Provider, Referring Provider Active Team Status: Inactive Member Role Status Dates No Primary Care Physician Primary Care Provider Active Laine Serrano CAR WIPER, CAR WIPER-C Attending Provider, Referring Provider Active Proposal Development Manager Relationship Specialty Start Date End Date Estelle Mackay MD [address] [place] [address] Gynecology 04/20/18 Team Status: Inactive Member Role Status Dates No Primary Care Physician Primary Care Provider Active Laine Serrano CAR WIPER, CAR WIPER-C Attending Provider, Referring Provider Active Jelena Fragoso CNM Other Provider Active Team Status: Active Member Role Status Dates No Primary Care Physician Primary Care Provider Active Jelena Fragoso CNM Attending Provider, Referring Provider, Other Provider Active Team Status: Active Member Role Status Dates No Primary Care Physician Primary Care Provider Active Dr. Lori Schneider MD Attending Pr ovider, Referring Provider, Other Provider Active Team Status: Active Member Role Status Dates No Primary Care Physician Primary Care Provider Active Dr. Lori Schneider MD Admit Provid er, Attending Provider, Other Provider Active Team Status: Active Member Role Status Dates No Primary Care Physician Primary Care Provider Active Dr. Lori Schneider MD Admit Provider, Other Prov ider Active Dr. Mavis Aranda , Attending Provider Activ e Team Status: Inactive Member Role Status Dates No Primary Care Physician Primary Care Provider Active Dr. Lori Schneider MD Admit Provider, Attending Provider Active Proposal Development Manager Relationship Specialty Start Date End Date Estelle Mackay MD [address] [facility] [place] [address] Gynecology 04/20/18 Team Status: Active Member Role/Relationship Status Dates No Primary Care Physician Primary Care Provider Active Team Status: Inactive Member Role/Relationship Status Dates No Primary Care Physician Primary Care Provider Active Start: June 25, 2025 End: June 25, 2025 No Primary Care Physician Referring Provider Active Start: June 25, 2025 End: June 25, 2025 Dr. Mavis Aranda , DO Attending Provider Activ e Start: June 25, 2025 End: June 25, 2025 Team Status: Active Member Role/Relationship Status Dates No Primary Care Physician Primary Care Provider Active Start: June 25, 2025 Dr. Mavis Aranda DO Attending Provider Activ e Start: June 25, 2025 Dr. Mavis Aranda DO Referring Provider Activ e Start: June 25, 2025 Team Status: Inactive Member Role/Relationship Status Dates No Primary Care Physician Primary Care Provider Active Start: June 25, 2025 End: June 25, 2025 Yumiko Mcpherson CNM Attending Provider Active Start: June 25, 2025 End: June 25, 2025 Yumiko Mcpherson CNM Referring Provider Active Start: June 25, 2025 End: June 25, 2025 Team Status: Inactive Member Role/Relationship Status Dates No Primary Care Physician Primary Care Provider Active Start: June 25, 2025 End: June 25, 2025 Dr. Mavis Aranda DO Attending Provider Activ e Start: June 25, 2025 End: June 25, 2025 Dr. Mavis Aranda DO Referring Provider Activ e Start: June 25, 2025 End: June 25, 2025 Team Status: Active Member Role/Relationship Status Dates No Primary Care Physician Primary care physician Activ e Team Status: Inactive Member Role/Relationship Status Dates No Primary Care Physician Primary care physician Activ e Start: June 25, 2025 End: June 25, 2025 No Primary Care Physician Referring Provider Active Start: June 25, 2025 End: June 25, 2025 Dr. Mavis Aranda DO Attending physician Acti ve Start: June 25, 2025 End: June 25, 2025 Team Status: Inactive Member Role/Relationship Status Dates No Primary Care Physician Primary care physician Activ e Start: June 25, 2025 End: June 25, 2025 Dr. Mavis Aranda DO Attending physician Acti ve Start: June 25, 2025 End: June 25, 2025 Dr. Mavis Aranda DO Referring Provider Activ e Start: June 25, 2025 End: June 25, 2025 Team Status: Inactive Member Role/Relationship Status Dates No Primary Care Physician Primary care physician Activ e Start: June 25, 2025 End: June 25, 2025 Yumiko Mcpherson CNM Attending physician Active Start: June 25, 2025 End: June 25, 2025 Yumiko Mcpherson CNM Referring Provider Active Start: June 25, 2025 End: June 25, 2025 Team Status: Inactive Member Role/Relationship Status Dates No Primary Care Physician Primary care physician Activ e Start: July 26, 2025 End: July 26, 2025 No Primary Care Physician Referring Provider Active Start: July 26, 2025 End: July 26, 2025 Dr. Lori Schneider MD Attending physician Active Start: July 26, 2025 End: July 26, 2025 Team Status: Inactive Member Role/Relationship Status Dates No Primary Care Physician Primary care physician Activ e Start: August 17, 2025 End: August 17, 2025 No Primary Care Physician Referring Provider Active Start: August 17, 2025 End: August 17, 2025 Jelena Fragoso CNM Attending physician Active Start: August 17, 2025 End: August 17, 2025 Source Comments (unrecognize d section and content) In the event this informatio n is protected by the Federal Confidentiality of Alcohol and Drug Abuse Patient Records regulations: The Federal rules restrict any use of the information to criminally investigate or prosecute any alcohol or drug abuse patient.[facility] the event this information is protected by the Federal Confidentiality of Alcohol and Drug Abuse Patient Records regulations: The Federal rules restrict any use of the information to criminally investigate or prosecute any alcohol or drug abuse patient.[facility] the event this information is protected by the Federal Confidentiality of Alcohol and Drug Abuse Patient Records regulations: The Federal rules restrict any use of the information to criminally investigate or prosecute any alcohol or drug abuse patient.[facility] the event this information is protected by the Federal Confidentiality of Alcohol and Drug Abuse Patient Records regulations: The Federal rules restrict any use of the information to criminally investigate or prosecute any alcohol or drug abuse patient.[facility] Reason for Visit (unrecogniz ed section and content) Reason Comments PT Eval Specialty Diagnoses / Procedures Referred By Shay t Referred To Contact Physical Therapy / PHYSICAL THERAPY Diagnoses pelvic floor pre- Procedures NEW RS PT PRE-POST Landon Mcpherson APRN.CNM [address] [place] [address] Sakina Quintero, PT [address] [place] [address] Referral ID Status Reason Start Date Expiration Date V isits Requested Visits Authorized [id number] Authorized 01/03/2024 11/07/2024 20 20 Reason Comments Physical Therapy FOR RECORDS PERTAINING TO PATIENTS WHO ARE [...] BE BASED ON THE PRIMARY CLINICAL RECORDS. [facility]. provides no warranty or guarantee of the accuracy or completeness of information in this document.
[2025-10-30 12:19] LABS: Hematocrit 33.7 % (37-47); Hemoglobin 11.5 g/dL (12.0-15.0); Immature Granulocytes Count 0.020 X10^3/uL (0.0-0.0); Mean Corp Hgb Conc 34.1 g/dL (32-36); Mean Corpuscular Volume 88.0 fL (81-99); Mean Platelet Vol. 10.1 fl (6.2-12.0); NRBC Flagged by Analyzer 0 % (0-5); Platelet Count 196 K/mm3 (150-450); RBC Distribution Width CV 12.3 % (11.6-14.6); RBC Distribution Width SD 39.1 fl (35.1-43.9); Red Blood Count 3.83 M/mm3 (4.2-5.4); White Blood Count 7.2 K/mm3 (4.4-11.0)
[2025-10-30 13:14] LABS: Glucose Challenge Gest 1H 50g 103 mg/dL (70-140); HIV Nonreactive (Nonreactive); Syphilis Antibodies Nonreactive (Nonreactive)
== END | disposition home or self-care (01) ==
PROVIDERS: Visit Provider Student in an Organized Health Care Education/Training Program
DX: Z13.1 Encounter for screening for diabetes mellitus (principal); O09.90 Supervision of high risk pregnancy, unspecified, unspecified trimester; Z3A.00 Weeks of gestation of pregnancy not specified
CPT/HCPCS: 36415; 82950; 85025; 86703; 86780